=== PATIENT | female | born 1985 | race Caucasian/White ===

== ENCOUNTER 2025-06-14 18:30 | Inpatient (IN) | payer SELFPAY ==
[2025-06-14] VITALS (53 sets, daily range): BP systolic 88–146; BP diastolic 46–108; PULSE 68–112; TEMP 37; O2SAT 96–100; BMI 34.2
--- OUTSIDE RECORDS SUMMARY | 2025-06-14 19:53 | XMS_ITS | Clinical Summary ---
Author Organization [facility] Address [address] [place] [address] Care Team Providers Care Warp Starter Name Role Phone Unknown, Provider Primary Care Provider Unavaila ble Source Comments [facility],non-owned Affiliates and Associated Physician Practices is amultiple site organization consisting of ambulatory clinics and hospital sitesin [place], [place], [place] and [place]. This disclosure is being madepursuant to the Care Everywhere program and may not contain all information available regarding this patient. Last updated 18.[facility] Allergies Active Allergy Reactions Criticality Noted Date Comments Naproxen Nausea and/or Vomiting Low 08/18/2023 Medications * Be aware that medications may not be up to date on this document. Alwaysverify current medications with the patient. Vit-Fe Fumarate-FA ( PO) Active Ferrous Sulfate (IRON PO) Active Active Problems Problem Noted Date Diagnosed Date Advanced maternal age in multigravida, third tri mester 04/23/2025 Abnormal ultrasound of placenta 04/23/2025 Estimated Date of Delivery Comme nts Yes 06/15/2025 Based on Ultraso und Encounters Date Type Department Care Team Description 04/25/2025 9:49 AM CDT - 04/25/2025 11:59 PM CDT Hospital Encounter Pending sale to [facility] [address] [place] [address] Anayeli Dailey MD Discharge Disposition: Home or Self Care 04/25/2025 9:45 AM CDT - 04/25/2025 9:48 AM CDT Hospital Encounter Pending sale to [facility] [address] [place] [address] Anayeli Dailey MD Discharge Disposition: Home or Self Care 04/19/2025 Telephone Pending sale to [facility] [address] [place] [address] Inga Ko Appointment 04/18/2025 Telephone Pending sale to [facility] [address] [place] [address] Inga Ko Appointment from Last 3 Months Social History Tobacco Use Types Packs/Day Years Used Date Smoking Tobacco: Former Cigarettes Smokeless Tobacco: Never Tobacco Cessation:Counseling Given: Not Answered Alcohol Use Standard Drinks/Week Comments Not Currently 0 (1 standard drink = 0.6 oz pur e alcohol) Estimated Date of Delivery Comme nts Yes 06/15/2025 Based on Ultraso und Sex and Gender Information Value Date Recorded Sex Assigned at Not on file Legal Sex Female 2:10 PM CDT Gender Identity Not on file Sexual Orientation Not on file Last Filed Vital Signs Vital Sign Reading Time Taken Comments Blood Pressure 135/62 04/25/2025 11:18 AM CDT Pulse 78 04/25/2025 11:18 AM CDT Temperature - - Respiratory Rate - - Oxygen Saturation - - Inhaled Oxygen Concentration - - Weight 89.4 kg (197 lb) 04/25/2025 11:18 AM CDT Height 165.1 cm (5' 5) 04/25/2025 11:18 AM CDT Body Mass Index 32.78 04/25/2025 11:18 AM CDT Plan of Treatment Health Maintenance Due Date Last Done Comments HEPATITIS C SCREENING 11/24/2004 DTAP/TDAP/TD VACCINES (1 - Tdap) 2005 HEPATITIS B VACCINE (1 of 3 - 19+ 3-dose series) 2005 Cervical Cancer Screening 11/30/2007 PAP SMEAR 11/30/2007 HPV VACCINE (1 - 3-dose SCDM series) 2013 PAP with HPV 2016 DEPRESSION SCREENING 07/20/2024 OB-ONE HOUR GLUCOSE 03/09/2025 OB-TDAP CURRENT 03/16/2025 COVID-19 VACCINE ( - 2024-2 6 season) 2025 INFLUENZA VACCINE (#1) 2025 OB-RHOGAM INJECTION 03/23/2025 OB-GROUP B STREP SCREEN 05/11/2025 ZOSTER VACCINE (1 of 2) 2036 HIV SCREENING Completed 04/14/2025, 02/03/2025 HIB VACCINE Aged Out No longer eligi ble based on patient's age to complete this topic MENINGOCOCCAL (Group B) VACCINE SHARED DECISION-MAKING Aged Out No longer eligible based on patient's age to complete this topic MENINGOCOCCAL GROUPS A/C/Y/W VACCINE Aged Out No longer eligible b ased on patient's age to complete this topic PNEUMOCOCCAL VACCINE Aged Out No long er eligible based on patient's age to complete this topic Respiratory Syncytial Virus (RSV) Vaccine Pt: or over 60 yrs (No Doses Required) Completed Procedures Procedure Name Priority Date/Time Associated Diagnosis Comments SONOGRAM - COMPLETE Routine 04/25/2025 9 :59 AM CDT Low lying placenta, antepartum (HCC) Abnormal ultrasound of placenta 32 weeks gestation of (HCC) Advanced maternal age in multigravida, unspecified trimester (HCC) Advanced maternal age in multigravida, third trimester (HCC) from Last 3 Months Results * Sonogram - Complete (04/25/2025 9:59 AM CDT) Linked Results Indication ======== Advanced maternal age (AMA), multigravida Low lying placenta seen on outside ultrasound along with vascularity involving lower uterine segment History ====== OB History 5. Para 1 Lab Tests Test Date Result NIPT Low risk, Female Maternal Assessment Physical Exam Height 165 cm, 5 ft 5 in. Weight 89 kg, 197 lb. Initial weight 70 kg, 155 lb. BMI 32.78 kg/m . Initial BMI 25.79 kg/m . Weight gain 19 kg, 42 lb Method ====== Transabdominal and transvaginal ultrasound examination. View: Suboptimal view: limited by late gestational age. Suboptimal view: limited by position ========= [place] . Number of fetuses: 1 Dating ====== Date Details Gest. age JENNIFER Stated JENNIFER 32 w + 5 d 06/15/2025 U/S 04/25/2025 based upon AC, BPD, Femur, HC 34 w + 0 d 06/06/2025 Assigned dating based on stated JENNIFER, selected on 04/25/2025 32 w + 5 d 06/15/2025 General Evaluation Cardiac activity present. FHR 128 bpm. movements: visualized. Presentation: cephalic Placenta: Placental site: posterior, low lying. Placental [id number]-[id number] os distance 17 mm Umbilical cord: Cord vessels: 3 vessel cord. Insertion site: normal insertion Amniotic fluid: Amount of AF: normal. MVP 3.4 cm. RAVI 10.7 cm. Q1 2.1 cm, Q2 2.9 cm, Q3 2.4 cm, Q4 3.4 cm Biometry BPD 85.6 mm 34w 4d 89% Hadlock HC 315.7 mm 35w 3d 83% Hadlock Cerebellum tr 43.3 mm 64% [place] AC 303.6 mm 34w 2d 89% Hadlock Femur 61.4 mm 31w 6d 18% Hadlock Humerus 55.5 mm 32w 2d 46% Sami HC / AC 1.04 -/- Hadlock Weight Calculation: EFW 2,271 g 73% Hadlock EFW (lb,oz) 5 lb 0 oz EFW by Hadlock ([id number]) appropriate Growth Overview Exam date GA BPD (mm) HC (mm) AC (mm) FL (mm) HL (mm) EFW (g) 04/25/2025 32w 5d 85.6 89% 315.7 83% 303.6 89% 61.4 18% 55.5 46% 2271 73% Anatomy The following structures appear normal: Head / Neck Cranium. Lateral ventricles. Choroid plexus. Midline falx. Cavum septi pellucidi. Cerebellum. Cisterna magna. Thalami. Nuchal fold. Face Lips. Profile. Nose. Nasal bone. Orbits. Heart / Thorax 4-chamber view. 3-vessel view. 7-bmzdog-oqxjcia view. Situs. Aortic arch view. Ductal arch view. Great vessels. Abdomen Stomach. Kidneys. Bladder. Bowel. Extremities / Skeleton Left upper arm. Left hand. Legs. The following structures could not be adequately visualized: Heart / Thorax RVOT view. LVOT view. Bicaval view. Right lung. Left lung. Diaphragm. Abdomen Cord insertion. Genitals. Spine Cervical spine. Thoracic spine. Lumbar spine. Sacral spine. Extremities / Skeleton Arms. Hands. Right upper arm. Right hand. Feet. Maternal Structures Cervix reassuring Approach - Transvaginal Cervical length with fundal pressure 3.70 cm Funneling absent Right Ovary Normal Left Ovary Normal Impression ========= Single live intrauterine at 32w 5d The size is appropriate. The amniotic fluid volume is normal. The transvaginal cervical length is reassuring. The placenta is posterior and low lying, inferior edge 1.7 cm from the internal os. Vascularity is noted, doppler is suggestive of venous flow of maternal origin. vessels are not seen. No major malformations were seen within the limitations of ultrasound. Comment ======== ultrasound alone cannot detect all structural, genetic, or functional , placental, or maternal abnormalities Follow-up ======== Follow up in 3 weeks, to assess growth and ro reevaluate the placenta. See separate M visit note. Coding ====== Procedures 43583: US Preg Uterus Detailed [id number]: US Preg Uterus Transvaginal . [facility] [employer] PACS Anatomical Region Laterality Modality Other 04/25/2025 9:59 AM CDT R Raj Lyons MD [facility] ORDERABLES Edited Result - Final from Last 3 Months Care Teams Warp Starter Relationship Specialty Start Date End Date Unknown, Provider PCP - General 04/25/25
--- OUTSIDE RECORDS SUMMARY | 2025-06-14 19:53 | XMS_ITS | Continuity of Care Document ---
Author Organization [facility] Address [address] [place] [address] Assessment No assessment recorded. Plan of Treatment Reminders Order Date Submit Date Provider Last Modified By Organization Details Last Modified Time Details Appointments INDUCTION 2024 05:00A Andres RAMÍREZ MD Not available Not available Not available Lab None recorded. Referral None recorded. Procedures None recorded. Surgeries None recorded. Imaging None recorded. Medication Orders None recorded. Patient TargetsNo targets recorded. Patient InstructionsNo instructions recorded. Reason for Referral None Reported. Results Created Date Observation Date Name Description Value Unit Range Abnormal Flag Note LastModifiedBy Organization Detail LastModifiedTime 02/12/2002/11/2025 [UNIT Y] ANEUP LOIDY NIPT fraction 13.7% normal Not Available [facility] [address], [place], [address], 02/11/2025 00:34:26 02/12/20 25 02/11/2025 [UNIT Y] ANEUP LOIDY NIPT 22Q11.2 microdeletio n LOW RISK <1 in 10,000 normal Not Available [facility] [address], [place], [address], 02/11/2025 00:34:26 02/12/20 25 02/11/2025 [UNIT Y] ANEUP LOIDY NIPT sex chromosome aneuploidy NOT DETECT ED normal Not Available [facility] [address], [place], [address], 02/11/2025 00:34:26 02/12/20 25 02/11/2025 [UNIT Y] ANEUP LOIDY NIPT monosomy X LOW RISK <1 in 10,000 normal Not Available [facility] [address], [place], [address], 02/11/2025 00:34:26 02/12/20 25 02/11/2025 [UNIT Y] ANEUP LOIDY NIPT trisomy 13 LOW RISK <1 in 10,000 normal Not Available [facility] [address], [place], [address], 02/11/2025 00:34:26 02/12/20 25 02/11/2025 [UNIT Y] ANEUP LOIDY NIPT trisomy 18 LOW RISK <1 in 10,000 normal Not Available [facility] [address], [place], [address], 02/11/2025 00:34:26 02/12/20 25 02/11/2025 [UNIT Y] ANEUP LOIDY NIPT trisomy 21 LOW RISK <1 in 10,000 normal Not Available [facility] [address], [place], [address], 02/11/2025 00:34:26 02/12/20 25 02/11/2025 [UNIT Y] ANEUP LOIDY NIPT sex FEMALE normal Not Available [facility] [address], [place], [address], 02/11/2025 00:34:26 02/12/20 25 02/11/2025 [UNIT Y] ANEUP LOIDY NIPT gestation SINGLE TON normal Not Available [facility] [address], [place], [address], 02/11/2025 00:34:26 02/12/20 25 02/11/2025 [UNIT Y] ANEUP LOIDY NIPT for detailed report, see pdf See PDF normal Not Available [facility] [address], [place], [address], 02/11/2025 00:34:26 02/19/20 25 02/18/2025 [UNIT Y] KECIA DAYANARA DIAMANTEJaciel Molina sickle cell disease/beta -thalassemia /hemoglobino pathies carrier screen NEGATI VE normal Not Available [facility] [address], [place], [address], 02/18/2025 01:11:43 02/19/20 25 02/18/2025 [UNIT Y] KECIA BOBBYJaciel Molina alpha-thalas semia carrier screen NEGATI VE normal Not Available [facility] [address], [place], [address], 02/18/2025 01:11:43 02/19/20 25 02/18/2025 [UNIT Y] KECIA DAYANARA DIAMANTEJaciel Molina cystic fibrosis carrier screen NEGATI VE normal Not Available [facility] [address], [place], [address], 02/18/2025 01:11:43 02/19/20 25 02/18/2025 [UNIT Y] KECIA DAYANARA DIAMANTEJaciel Molina spinal muscular atrophy carrier screen NEGATI VE 2 SMN1 copies , SNP not presen t normal Not Available [facility] [address], [place], [address], 02/18/2025 01:11:43 02/19/20 25 02/18/2025 [UNIT Y] KECIA DAYANARA Molina for detailed report, see pdf See PDF normal Not Available [facility] [address], [place], [address], 02/18/2025 01:11:43 02/04/2002/03/2025 HIV 1/2 ANTIG EN/AN TIBOD Y, REFLE X CONFI RMATI ON HIV antigen/anti body Nonrea ctive nonrea ctive HIV-1 antig en and HIV-1 /HIV- 2 antib odies were not detec marvin. No labor atory evide nce of HIV infec tion. Not Available [facility] (Lab) [address], [place], [address], 02/04/2025 14:19:01 02/04/2002/03/2025 HEPAT ITIS B SURFA CE ANTIG EN hepatitis B surface antigen Non-re active non-re active This assay was perfo rmed using [employer] ratio n reage nts and test kits. Value s obtai amy with other assay metho ds or kits canno t be used inter cyr eably . Not Available [facility] (Lab) [address], [place], [address], 02/04/2025 14:19:02 02/04/2002/03/2025 HEPAT ITIS C ANTIB MANAN SCREE N, REFLE X TO CONFI RMATI ON hepatitis C antibody Non-re active non-re active Antib odies to HCV Not Detec marvin, does not exclu de the possi bilit y of expos ure to HCV. Not Available [facility] (Lab) [address], [place], [address], 02/04/2025 14:19:02 02/04/2002/03/2025 RUBEL LA IGG ANTIB MANAN, QUANT rubella antibodies, IgG Reacti ve reacti ve Not Available [facility] (Lab) [address], [place], [address], 02/04/2025 14:19:03 02/04/2002/03/2025 RUBEL LA IGG ANTIB MANAN, QUANT rubella antibodies, IgG quant 11.5 IU/mL >=10 Non-r eacti ve (Non- Immun e) <10 IU/mL React chastity (Immu ne) > or = 10 IU/mL Not Available [facility] (Lab) [address], [place], [address], 02/04/2025 14:19:03 02/04/2002/03/2025 HEMOG LOBIN A1C hemoglobin A1C 5.0 % 4.0-5. 6 The Ameri can [employer]abe sharmila [employer] iatio n recom mends that a prima ry goal of thera py izaiah d be a HBA1C of < 7% and that physi cians shoul d reeva luate the treat ment regim en in patie nts with HBA1C value s consi stent ly > 8%. <5.7% Evelyn l 5.7 - 6.4% Incre ased risk for diabe sharmila >=6.5 % Diagn ostic of diabe sharmila <7.0% Goal of thera py >8.0% Actio n sugge sted Not Available [facility] (Lab) [address], [place], [address], 02/04/2025 14:19:03 02/04/2002/03/2025 TYPE/ RH/SC REEN ABO/Rh type A POS Not Available [facility] (Lab) [address], [place], [address], 02/04/2025 14:19:04 02/04/20 25 02/03/2025 TYPE/ RH/SC REEN antibody screen NEG Not Available [facility] (Lab) [address], [place], [address], 02/04/2025 14:19:04 02/04/20 25 02/03/2025 TYPE/ RH/SC REEN exp date 2024 23:59 Not Available [facility] (Lab) [address], [place], [address], 02/04/2025 14:19:04 02/04/20 25 02/03/2025 RPR SCREE N, REFLE X TITER /CONF IRMAT ION RPR qualitative Nonrea ctive nonrea ctive Not Available [facility] (Lab) [address], [place], [address], 02/04/2025 14:19:04 04/14/20 25 04/14/2025 HEMOG LOBIN (HGB) HGB 11.0 g/dL (based on docume nted legal sex) 11.6-1 5.4 low Not Available [facility] (Lab) [address], [place], [address], 04/15/2025 12:46:15 04/14/20 25 04/14/2025 HEMAT OCRIT (HCT) HCT 35.7 % (based on docume nted legal sex) 34.0-4 5.0 Not Available [facility] (Lab) [address], [place], [address], 04/15/2025 12:46:16 04/14/20 25 04/14/2025 GTT - GESTA SHASHANK L SCREE N, ACOG OB glucose, 1 hour screen 99 mg/dL 70-135 Not Available [facility] (Lab) [address], [place], [address], 04/15/2025 12:46:16 04/14/20 25 04/14/2025 HIV 1/2 ANTIG EN/AN TIBOD Y, REFLE X CONFI RMATI ON HIV antigen/anti body Nonrea ctive nonrea ctive HIV-1 antig en and HIV-1 /HIV- 2 antib odies were not detec marvin. No labor atory evide nce of HIV infec tion. Not Available [facility] (Lab) [address], [place], [address], 04/15/2025 12:46:17 04/14/20 25 04/14/2025 RPR SCREE N, REFLE X TITER /CONF IRMAT ION RPR qualitative Nonrea ctive nonrea ctive Not Available [facility] (Lab) [address], [place], [address], 04/15/2025 12:46:17 05/24/20 25 05/24/2025 CULTU RE: GROUP B STREP SCREE N, REFLE X SUSCE PTIBI LITY result report SEE RESULT S BELOW Test: Cultu re: Group B Strep , Refle x Susce ptibi lity ([facility]/ [facility] ) Speci men Sourc e: Vagin a/Rec adolfo Speci men Type: Vagin al/Re ctal Speci men Date: 2024 1559 Resul t Date: 2024 1420 Resul t Statu s: Final resul t Abnor mal: No Resul jarrodg Lab: [facility] [address] [facility] [address] Tel: CULTU RE ----- ----- ----- --- No Group B strep isola marvin at 2 days (devin ctive broth enhan cemen t) Not Available [facility] (Lab) [address], [place], [address], 05/27/2025 15:26:08 02/04/20 25 02/03/2025 US, obste tric, follo w-up No observ ation record ed. [facility] [address] [place], [address], 02/03/2025 17:50:45 02/04/20 25 02/03/2025 US, obste tric, trans vagin al No observ ation record ed. [facility] [address] [place], [address], 02/03/2025 17:50:54 02/04/20 25 02/03/2025 US, obste tric, follo w-up No observ ation record ed. [email or web address] [facility] [address] [place] [address] [address], [place], [address], 02/17/2025 09:47:46 03/01/2003/01/2025 US, obste tric, trans vagin al No observ ation record ed. [facility] [address] [place], [address], 03/01/2025 18:51:07 03/01/20 25 03/01/2025 US, obste tric, follo w-up No observ ation record ed. [facility] [address] [place], [address], 03/01/2025 18:51:17 03/01/2003/01/2025 US, obste tric, trans vagin al No observ ation record ed. [email or web address] [facility] [address], [place], [address], 03/04/2025 11:18:02 04/13/2004/13/2025 US, obste tric, follo w-up No observ ation record ed. [email or web address] [facility] [address], [place], [address], 04/18/2025 10:57:58 04/13/2004/13/2025 US, obste tric, follo w-up No observ ation record ed. [email or web address] [facility] [address] [place], [address], 04/13/2025 14:33:43 04/13/2004/13/2025 US, obste tric, trans vagin al No observ ation record ed. [email or web address] [facility] [address] [place], [address], 04/13/2025 14:33:53 04/25/2004/25/2025 US, obste tric, follo w-up No observ ation record ed. [email or web address] [address], [address], 04/26/2025 12:18:39 04/26/2004/25/2025 US, obste tric, follo w-up No observ ation record ed. [email or web address] [facility] [address], [address], 05/16/2025 16:36:08 05/16/2005/16/2025 US, obste tric, follo w-up No observ ation record ed. GEOFFREY Carson [address], [place], [address], 06/02/2025 12:50:00 05/16/2005/16/2025 US, obste tric, follo w-up No observ ation record ed. [facility] [address], [place], [address], 05/16/2025 18:39:43 05/16/2005/16/2025 US, obste tric, trans vagin al No observ ation record ed. [facility] [address], [place], [address], 05/16/2025 18:39:52 Result Notes None recorded. Problems Name Problem SNOMED Code Status Onset Date Resolution Date Notes Provider Name and Address Organization Details Recorded Time 26783154 Active 2024 ALAN Cai [facility] 14:57:49 Low-lying placenta 862183785 Active 2024 8mm from OS at 21 weeks, repeat in 4 weeks faxed referral [facility] 04/18 Amberly Arteaga [facility] 11:02:39 Problem Notes None recorded. Procedures Surgical History Date Name Laterality Status Provider Name and Address Organization Details Recorded Time 11/19/19 18 tonsillectomy and adenoidectomy completed ALAN Cai [facility] 01/09/2025 12:24:46 tonsilectomy/winston oids completed Rebekah Mancia [facility] 03/01/2025 16:34:53 Imaging Results None recorded. Procedure Notes None recorded. Medical Equipment None Reported. Allergies Allergen ID Allergen Name Allergen Category Reaction Reaction Severity Criticality Documentation Date Start Date Code Code System Note Provider Name and Address Organization Details Recorded Time naproxen medicatio n abdominal pain moderate Not available 01/09/2025 7258 RxNorm [facility] 12:[facility]:23 Medications Name Sig Start Date Stop Date Status Note LastModified by Organization Details LastModified Time misoprostol 200 mcg tablet TAKE 4 TABLETS EVERY DAY BY MOUTH FOR ONE DAY 01/09 completed Not Available Not Available Not Available active Not Available Not Avai lable Not Available Vitals Date Recorded Body height Body mass index (BMI) Body weight Systolic And Diastolic Provider Name and Address Organization Details Last Updated DateTime 05/30/2025 165.1 cm 33.6 kg/m2 83623.66 g 131/79 mm[Hg] Leslie Diallo [facility] 05/30/2025 09:46:07 Social History Question Answer Notes LastModified by Organizat ion Details LastModified Time Do You Have An Advance Directive? No Information n ot available 01/09/2025 Are You Blind Or Do You Have Difficulty Seeing? No Information not available 01/09/2025 What Is Your Level Of Caffeine Consumption? Moderate [email or web address] Information not available 01/09/2025 How Much Tobacco Do You Chew? None [email or web address] Information not available 01/09/2025 In The 14 Days Before Symptom Onset, Have You Had Close Contact With A Laboratory-confirme d COVID-19 While That Case Was Ill? No [email or web address] Information n ot available 01/09/2025 In The 14 Days Before Symptom Onset, Have You Had Close Contact With A Person Who Is Under Investigation For COVID-19 While That Person Was Ill? No [email or web address] Information not available 01/09/2025 Have You Been To An Area Known To Be High Risk For COVID-19? No [email or web address] Information not available 01/09/2025 Are You Deaf Or Do You Have Serious Difficulty Hearing? No [email or web address] Information not available 01/09/2025 What Type Of Diet Are You Following? REGULAR [email or web address] Information n ot available 01/09/2025 What Is The Highest Grade Or Level Of School You Have Completed Or The Highest Degree You Have Received? GV99952-1 [email or web address] Information not available 01/09/2025 Are There Any Guns Present In Your Home? No [email or web address] Information not available 01/09/2025 Do You Use Protection During Sex? No [email or web address] Information not available 01/09/2025 Do You Use Your Seat Belt Or Car Seat Routinely? Yes [email or web address] Information not available 01/09/2025 Are You Sexually Active? Yes [email or web address] Information not available 03/01/2025 Do You Have Smoke And Carbon Monoxide Detectors In Your Home? Yes [email or web address] Information not available 01/09/2025 How Much Tobacco Do You Smoke? No Information not available 01/09/2025 Do You Use Sunscreen Routinely? No [email or web address] Information not available 01/09/2025 Have You Used IV Drugs? No [email or web address] Information not available 01/09/2025 Sex: Unknown Functional Status Question Answer Note LastModified by Organizat ion Details LastModified Time Do you use any illicit or recreational drugs? No [email or web address] Information not available 01/09/2025 What is your level of alcohol consumption? None [email or web address] Information not available 01/09/2025 Are you currently employed? Yes [email or web address] Information not available 03/01/2025 Are you able to walk independently without assistance or assistive devices? 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 Occasional [email or web address] Information not available 01/09/2025 Mental Status Question Answer Note LastModified by Organization D etails LastModified Time Do you feel stressed (tense, restless, nervous, or anxious, or unable to sleep at night)? [id number] Information not available 01/09/2025 Family History Relationship Description Onset Age of this Age Resolved Age Notes LastModified by Organization Details LastModified Time Maternal Grandfather Heart disease [email or web address] Not available 2024 12:25:30 Medical History Condition Response Allergies (Food, seasonal, environmental ) N Other N Drug/Latex Allergies/Reactions N Blood Transfusion N Breast Cancer N Dermatologic Disorders N Lung Disease N Defects or Inherited Disease N Breast Problem N Gestational Diabetes N Hematologic disorders N Anesthesia Complications N History of STI N Deep Vein Thrombosis N Polycystic ovary syndrome N Anxiety Disorder N Autoimmune disease N Arthritis N Polyps N Infertility N Acid Reflux (GERD) N History of abnormal pap N Cancer N Varicosities N Stroke N Neurologic/Epilepsy N Endometriosis N High Cholesterol N Fibromyalgia N Headaches N Kidney Disease N Heart Problems N Thyroid Problems N Kidney or Bladder Problems N GI Problems N Eating Disorder N Anemia N Art (IVF or FET) N Psychiatric Illness N Ovarian Cancer N Diabetes N Pulmonary (TB, Asthma) N Hepatitis/Liver Disease N No Past Medical History N Eczema N Urinary Tract Infection N Abuse/Domestic Violence N Asthma N Trauma/Violence N Depression/ depression N Heart Disease N Pre-Eclampsia N Hypertension N Osteoporosis N Thrombophilias N Gynecological History Statement/Question Response Flow Moderate Date of LMP 08/29/2024 On BCP's at Conception? N N Was last menstrual period normal Y STIs/STDs N HPV Vaccine N Duration of Flow (days) 8 Current Control Method Age at First Child 25 Date of Last Colonoscopy Frequency of Cycle (Q days) 24 Sexually Active? Y N/A Date of DEXA bone scan Age of first menstrual cycle 14 Date of Last Pap Smear Sexual Problems? N LMP Approximate N Obstetrics History GPAL:G 5 P 1 0 3 1 Type Value Full Term 1 Induced 1 Spontaneous 2 Living 1 Total 5 Past Encounters Encounter ID Performer Location Encounter Start Date Encounter Closed Date Diagnosis/Indication Diagnosis SNOMED-CT Code Diagnosis ICD10 Code Diagnosis IMO Codes Diagnosis Note [id number] DUARTE RAMÍREZ MD [facility] [address] [address] 05/10/2025 10:07:47 05/10/2025 12:24:38 Low-lying placenta 388148143 O44.40 83247159 - placental mass 1.7cm from os, with maternal vessel at edge of placenta- MFM follow up in 3 weeks; will reschedule to office due to cost- pelvic rest Gestation period, 34 weeks 61940241 Z3A.34 [id number] DUARTE RAMÍREZ MD [facility] [address] [address] 05/16/2025 16:56:29 05/17/2025 08:24:49 Low-lying placenta 027027027 O44.40 O09.523 Z3A.35 119667 - placental mass 1.7cm from os, with maternal vessel at edge of placenta- [facility] follow up in 3 weeks; will reschedule to office due to cost- pelvic rest [id number] DUARTE RAMÍREZ MD [facility] [address],[place] [address] 05/16/2025 16:57:18 05/17/2025 22:17:31 care status 138725614 Z34.83 [id number] DUARTE RAMÍREZ MD [facility] [address],[place] [address] 05/24/2025 15:57:07 05/24/2025 16:25:52 care status 033793776 Z34.83 [id number] DUARTE RAMÍREZ MD [facility] [address],[place] [address] 05/30/2025 09:37:18 05/30/2025 10:21:45 care status 108834801 Z34.83 [id number] Health Concerns Section Related Observation LastModified by Organization Detai ls LastModified Time None Recorded Concern Status LastModified by Organization Details LastModified Time None Recorded Payers Encounter Date Sequence Insurance Name Policy Number Policy Torres Covered Member ID Torres Member ID Guarantor Name 05/30/2025 1 *SELF PAY* Juma Jackson Notes Date Note Type Note Provider Name and Address Organization Details Recorded Time 05/30/2025 text/html Generic HPI TemplateReported by Patient DUARTE RAMÍREZ MD [address] [place], [address], [facility] 05/30/2025 10:21:11 OBGyn Episode Ob Episode Information Episode Created Date Number of Fetuses Patient Bloodtype Patient rh Status Prepregnancy Weight lbs Domestic Partner Domestic Partner Phone Father Name Health Safety And Environment Manager Status 01/18/20 25 1 A Positive OPEN Fetus Data First Name Last Name Admitted to NICU Weight (g) Sex Living Outcome Pediatric Complications Fetus ID Race Codes Race Delivery Type [id number] Problems Problem Notes Problem Name Start Date End Date Resolution Snomed Code Not e Low-lying placenta 02/03/2025 [id number] 8mm from OS at 21 weeks, repeat in 4 weeks faxed referral [facility] 04/18 Suhas Calculation Initial Suhas Date Initial Exam Date Initial Exam Provider Initial Ultrasound Date Last Menstrual Period Date Ultra Sound Weeks Gestation 06/15/2025 01/17/2025 01/12/2025 18 Eighteen To Twenty Week Suhas Update Ultra Sound Date Fundal Height At Umbil Quickening Date Ultra Sound Latest Weeks Gestation Final Suhas Confirmed By Final Suhas Confirmed Date Final Suhas Date Ultra Sound Latest Days Gestation 0 0 Pre- Flowsheet Flowsheet Date 02/03/2025 Jay Score Blood Edema Fundus Height Fundus Units Glucose Ketones Leukocytes Nitrite Labor Signs Protein Cervic Dilation Cervic Effacement Cervic Station Type Weight in lbs Pre/Post Dialysis Refused BP Diastolic BP Location Tested BP Systolic BP Type Fetus Heart Rate Present Fetus Movement Comments Flowsheet Date 02/03/2025 Jay Score Blood Edema Fundus Height Fundus Units Glucose Ketones Leukocytes Nitrite Labor Signs Protein Cervic Dilation Cervic Effacement Cervic Station Type Weight in lbs Pre/Post Dialysis Refused 174.80898453179 BP Diastolic BP Location Tested BP Systolic BP Type 85 L arm 134 sitting Fetus Heart Rate Present A 157 Fetus Movement A Yes Comments Good movement. No cram ping or bleeding. EFW 32%, anatomy now complete and normal. Low lying placenta, 8mm from cervical os. Continue pelvic rest precautions. Repeat US in 4 weeks, will do GCT at that time as well. RTC 4 weeks. Flowsheet Date 03/01/2025 Jay Score Blood Edema Fundus Height Fundus Units Glucose Ketones Leukocytes Nitrite Labor Signs Protein Cervic Dilation Cervic Effacement Cervic Station Type Weight in lbs Pre/Post Dialysis Refused BP Diastolic BP Location Tested BP Systolic BP Type Fetus Heart Rate Present Fetus Movement Comments Flowsheet Date 03/01/2025 Jay Score Blood Edema Fundus Height Fundus Units Glucose Ketones Leukocytes Nitrite Labor Signs Protein Cervic Dilation Cervic Effacement Cervic Station Type Weight in lbs Pre/Post Dialysis Refused 184.658057801429 BP Diastolic BP Location Tested BP Systolic BP Type 77 L arm 126 sitting Fetus Heart Rate Present Fetus Movement A Yes Comments Doing well, no issues. Good movement. EFW 55%, variable position. Low lying placenta still present, continue pelvic rest. repeat US in 4 weeks. GCT and labs with next visit. RTC 4 weeks. Flowsheet Date 04/13/2025 Jay Score Blood Edema Fundus Height Fundus Units Glucose Ketones Leukocytes Nitrite Labor Signs Protein Cervic Dilation Cervic Effacement Cervic Station Type Weight in lbs Pre/Post Dialysis Refused BP Diastolic BP Location Tested BP Systolic BP Type Fetus Heart Rate Present Fetus Movement Comments Flowsheet Date 04/14/2025 Jay Score Blood Edema Fundus Height Fundus Units Glucose Ketones Leukocytes Nitrite Labor Signs Protein Cervic Dilation Cervic Effacement Cervic Station Type Weight in lbs Pre/Post Dialysis Refused 194.251799762960 BP Diastolic BP Location Tested BP Systolic BP Type 75 L arm 129 sitting Fetus Heart Rate Present Fetus Movement A Yes Comments Good movement. Having some increased back pain, mostly with laying down. EFW 67%, placental mass now 1.9cm away from os, however there is a low flow vascularity seen between the placenta and the cervix. Will send to [facility] for further evaluation. Continue pelvic rest. GCT and labs today. RTC 2 weeks. Flowsheet Date 04/27/2025 Jay Score Blood Edema Fundus Height Fundus Units Glucose Ketones Leukocytes Nitrite Labor Signs Protein Cervic Dilation Cervic Effacement Cervic Station Type Weight in lbs Pre/Post Dialysis Refused Weight 199.254667027256 BP Diastolic BP Location Tested BP Systolic BP Type 72 L arm 118 sitting Fetus Heart Rate Present A 145 Fetus Movement A Yes Comments Flowsheet Date 05/10/2025 Jay Score Blood Edema Fundus Height Fundus Units Glucose Ketones Leukocytes Nitrite Labor Signs Protein Cervic Dilation Cervic Effacement Cervic Station Type Weight in lbs Pre/Post Dialysis Refused 200.546200128798 BP Diastolic BP Location Tested BP Systolic BP Type 76 L arm 132 sitting Fetus Heart Rate Present A 140 Fetus Movement A Yes Comments Doing well, good movem ent. Repeat US in office next week for LLP evaluation. Denies cramping or bleeding. Discussed GBS for next visit. RTC 1-2 weeks. Flowsheet Date 05/16/2025 Jay Score Blood Edema Fundus Height Fundus Units Glucose Ketones Leukocytes Nitrite Labor Signs Protein Cervic Dilation Cervic Effacement Cervic Station Type Weight in lbs Pre/Post Dialysis Refused BP Diastolic BP Location Tested BP Systolic BP Type Fetus Heart Rate Present Fetus Movement Comments Flowsheet Date 05/16/2025 Jay Score Blood Edema Fundus Height Fundus Units Glucose Ketones Leukocytes Nitrite Labor Signs Protein Cervic Dilation Cervic Effacement Cervic Station Type Weight in lbs Pre/Post Dialysis Refused 198.585411669552 BP Diastolic BP Location Tested BP Systolic BP Type 83 L arm 127 sitting Fetus Heart Rate Present A Present Fetus Movement A Yes Comments LLP resolved, 1.9-3cm. Discu ssed r/b of vaginal delivery with patient, ok to try for vaginal delivery. Good movement. No cramping or bleeding. GBS next visit. RTC 1 week. Flowsheet Date 05/24/2025 Jay Score Blood Edema Fundus Height Fundus Units Glucose Ketones Leukocytes Nitrite Labor Signs Protein Cervic Dilation Cervic Effacement Cervic Station Type Weight in lbs Pre/Post Dialysis Refused Weight 202.641874826446 BP Diastolic BP Location Tested BP Systolic BP Type 70 L arm 110 sitting Fetus Heart Rate Present A 130 Fetus Movement A Yes Comments Good movement. Increas ed pelvic pressure and discomfort. No bleeding. Would EIL on 06/16. GBS collected today. RTC 1 week. Flowsheet Date 05/30/2025 Jay Score Blood Edema Fundus Height Fundus Units Glucose Ketones Leukocytes Nitrite Labor Signs Protein Cervic Dilation Cervic Effacement Cervic Station Type Weight in lbs Pre/Post Dialysis Refused Weight 202.842877461675 BP Diastolic BP Location Tested BP Systolic BP Type 79 L arm 131 sitting Fetus Heart Rate Present Fetus Movement A Yes Comments Doing well, baby active. No bleeding, still having pelvic pressure. GBS negative. EIL scheduled. RTC 1 week. Flowsheet Date 06/06/2025 Jay Score Blood Edema Fundus Height Fundus Units Glucose Ketones Leukocytes Nitrite Labor Signs Protein Cervic Dilation Cervic Effacement Cervic Station Type Weight in lbs Pre/Post Dialysis Refused Weight 205.744954029146 BP Diastolic BP Location Tested BP Systolic BP Type 84 L arm 133 sitting Fetus Heart Rate Present A 140 Fetus Movement A Yes Comments Good movement. No cram ping or bleeding. Pelvic pressure. Overall doing well. RTC 1 week. Flowsheet Date 06/13/2025 Jay Score Blood Edema Fundus Height Fundus Units Glucose Ketones Leukocytes Nitrite Labor Signs Protein Cervic Dilation Cervic Effacement Cervic Station Type Weight in lbs Pre/Post Dialysis Refused Weight 204.918056698944 BP Diastolic BP Location Tested BP Systolic BP Type 87 L arm 147 sitting 82 R arm 126 sitting Fetus Heart Rate Present A 140 Fetus Movement A Yes Comments Doing well, some increased p elvic pain. No cramping or bleeding. Baby active. EIL Thursday. Labor precautions reviewed. Menstrual History Last Menstrual Date Menses Monthly On Bcp Conception Prior Menses Frequency Hcg Plus Date Menarche Onset Age Delivery Information Delivery Date Delivery Type Labor Anesthesia Weeks Gestation Incision Type Labor Labor Length Hrs Delivered By Post Complications Tubal Sterilization Discharge Date Comments Discharge Information Feeding Method Contraceptive Method Maternal HG B and HCT Levels
--- OUTSIDE RECORDS SUMMARY | 2025-06-14 19:53 | XMS_ITS | Continuity of Care Document ---
Author Organization [facility] Address [address] [place] [address] [place] [address] Assessment No assessment recorded. Plan of Treatment Reminders Order Date Submit Date Provider Last Modified By Organization Details Last Modified Time Details Appointments INDUCTION 2024 05:00A Andres RAMÍREZ MD Not available Not available Not available Lab None recorded. Referral None recorded. Procedures None recorded. Surgeries None recorded. Imaging US, obstetric , follow-up 2024 025 [email or web address] [place], [address], [place], [address], 04/14/2025 09:55:40 US, obstetric , transvagi nal 2024 025 [email or web address] [place] [facility] [place][note 2] [address], [place], [address], 04/14/2025 09:55:40 Medication Orders None recorded. Patient TargetsNo targets recorded. Patient InstructionsNo instructions recorded. Reason for Referral None Reported. Results Created Date Observation Date Name Description Value Unit Range Abnormal Flag Note LastModifiedBy Organization Detail LastModifiedTime 02/12/2002/11/2025 [UNIT Y] ANEUP LOIDY NIPT fraction 13.7% normal Not Available [facility] [address], [place], [address], 02/11/2025 00:34:26 02/12/2002/11/2025 [UNIT Y] ANEUP LOIDY NIPT 22Q11.2 microdeletio n LOW RISK <1 in 10,000 normal Not Available [facility] [address], [place], [address], 02/11/2025 00:34:26 02/12/20 25 02/11/2025 [UNIT Y] ANEUP LOIDY NIPT sex chromosome aneuploidy NOT DETECT ED normal Not Available [facility] [address], [place], [address], 02/11/2025 00:34:26 02/12/20 25 02/11/2025 [UNIT Y] ANEUP LOIDY NIPT monosomy X LOW RISK <1 in 10,000 normal Not Available [facility] [address], [place], [address], 02/11/2025 00:34:26 02/12/20 25 02/11/2025 [UNIT Y] ANEUP LOIDY NIPT trisomy 13 LOW RISK <1 in 10,000 normal Not Available [facility] [address], [place], [address], 02/11/2025 00:34:26 02/12/20 25 02/11/2025 [UNIT Y] ANEUP LOIDY NIPT trisomy 18 LOW RISK <1 in 10,000 normal Not Available [facility] [address], [place], [address], 02/11/2025 00:34:26 02/12/20 25 02/11/2025 [UNIT Y] ANEUP LOIDY NIPT trisomy 21 LOW RISK <1 in 10,000 normal Not Available [facility] [address], [place], [address], 02/11/2025 00:34:26 02/12/20 25 02/11/2025 [UNIT Y] ANEUP LOIDY NIPT sex FEMALE normal Not Available [facility] [address], [place], [address], 02/11/2025 00:34:26 02/12/20 25 02/11/2025 [UNIT Y] ANEUP LOIDY NIPT gestation SINGLE TON normal Not Available [facility] [address], [place], [address], 02/11/2025 00:34:26 02/12/20 25 02/11/2025 [UNIT Y] ANEUP LOIDY NIPT for detailed report, see pdf See PDF normal Not Available [facility] [address], [place], [address], 02/11/2025 00:34:26 02/19/20 25 02/18/2025 [UNIT Y] KECIA Molina sickle cell disease/beta -thalassemia /hemoglobino pathies carrier screen NEGATI VE normal Not Available [facility] [address], [place], [address], 02/18/2025 01:11:43 02/19/20 25 02/18/2025 [UNIT Y] KECIA Molina alpha-thalas semia carrier screen NEGATI VE normal Not Available [facility] [address], [place], [address], 02/18/2025 01:11:43 02/19/20 25 02/18/2025 [UNIT Y] KECIA Molina cystic fibrosis carrier screen NEGATI VE normal Not Available [facility] [address], [place], [address], 02/18/2025 01:11:43 02/19/20 25 02/18/2025 [UNIT Y] KECIA Molina spinal muscular atrophy carrier screen NEGATI VE 2 SMN1 copies , SNP not presen t normal Not Available [facility] [address], [place], [address], 02/18/2025 01:11:43 02/19/20 25 02/18/2025 [UNIT Y] KECIA Molina for detailed report, see pdf See PDF normal Not Available [facility] [address], [place], [address], 02/18/2025 01:11:43 02/04/2002/03/2025 HIV 1/2 ANTIG EN/AN TIBOD Y, REFLE X CONFI RMATI ON HIV antigen/anti body Nonrea ctive nonrea ctive HIV-1 antig en and HIV-1 /HIV- 2 antib odies were not detec marvin. No labor atory evide nce of HIV infec tion. Not Available [facility] (Lab) [address], [place], [address], 02/04/2025 14:19:01 02/04/2002/03/2025 HEPAT ITIS B SURFA CE ANTIG EN hepatitis B surface antigen Non-re active non-re active This assay was perfo rmed using [employer] ratio n reage nts and test kits. Value s obtai amy with other assay metho ds or kits canno t be used inter cyr eably . Not Available [facility] (Lab) [address], [place], [address], 02/04/2025 14:19:02 02/04/2002/03/2025 HEPAT ITIS C ANTIB MANAN SCREE N, REFLE X TO CONFI RMATI ON hepatitis C antibody Non-re active non-re active Antib odies to HCV Not Detec marvin, does not exclu de the possi bilit y of expos ure to HCV. Not Available [facility] (Lab) [address], [place], [address], 02/04/2025 14:19:02 02/04/2002/03/2025 RUBEL LA IGG ANTIB MANAN, QUANT rubella antibodies, IgG Reacti ve reacti ve Not Available [facility] (Lab) [address], [place], [address], 02/04/2025 14:19:03 07/18/20 25 02/03/2025 RUBEL LA IGG ANTIB MANAN, QUANT rubella antibodies, IgG quant 11.5 IU/mL >=10 Non-r eacti ve (Non- Immun e) <10 IU/mL React chastity (Immu ne) > or = 10 IU/mL Not Available [facility] (Lab) [address] , [place], [address], 02/04/2025 14:19:03 02/04/2002/03/2025 HEMOG LOBIN A1C hemoglobin A1C 5.0 % 4.0-5. 6 The Ameri can Diabe sharmila Assoc iatio n recom mends that a prima ry goal of thera py shoul d be a HBA1C of < 7% and that physi cians shoul d reeva luate the treat ment regim en in patie nts with HBA1C value s consi stent ly > 8%. <5.7% Evelyn l 5.7 - 6.4% Incre ased risk for diabe sharmila >=6.5 % Diagn ostic of diabe sharmila <7.0% Goal of thera py >8.0% Actio n sugge sted Not Available [facility] (Lab) [address], [place], [address], 02/04/2025 14:19:03 02/04/2002/03/2025 TYPE/ RH/SC REEN ABO/Rh type A POS Not Available [facility] (Lab) [address], [place], [address], 02/04/2025 14:19:04 02/04/2002/03/2025 TYPE/ RH/SC REEN antibody screen NEG Not Available [facility] (Lab) [address] , [place], [address], 02/04/2025 14:19:04 02/04/2002/03/2025 TYPE/ RH/SC REEN exp date 2024 23:59 Not Available [facility] (Lab) [address], [place], [address], 02/04/2025 14:19:04 02/04/20 25 02/03/2025 RPR SCREE N, REFLE X TITER /CONF IRMAT ION RPR qualitative Nonrea ctive nonrea ctive Not Available [facility] (Lab) [address] [place] [address], [place], [address], 02/04/2025 14:19:04 02/04/20 25 02/03/2025 US, obste tric, follo w-up No observ ation record ed. [facility] [address], [place], [address], 02/03/2025 17:50:45 02/04/20 25 02/03/2025 US, obste tric, trans vagin al No observ ation record ed. [facility] [address], [place], [address], 02/03/2025 17:50:54 02/04/20 25 02/03/2025 US, obste tric, follo w-up No observ ation record ed. [email or web address] [facility] [address], [place], [address], 02/17/2025 09:47:46 03/01/20 25 03/01/2025 US, obste tric, trans vagin al No observ ation record ed. [facility] [address], [place], [address], 03/01/2025 18:51:07 03/01/20 25 03/01/2025 US, obste tric, follo w-up No observ ation record ed. [facility] [address], [place], [address], 03/01/2025 18:51:17 03/01/20 25 03/01/2025 US, obste tric, trans vagin al No observ ation record ed. [email or web address] [address], [place], [address], 03/04/2025 11:18:02 04/13/2004/13/2025 US, obste tric, follo w-up No observ ation record ed. [facility] [address], [place], [address], 04/18/2025 10:57:58 04/13/2004/13/2025 US, obste tric, follo w-up No observ ation record ed. [email or web address] [place] [address], [place], [address], 04/13/2025 14:33:43 04/13/2004/13/2025 US, obste tric, trans vagin al No observ ation record ed. [email or web address] [place] [address], [place], [address], 04/13/2025 14:33:53 04/25/2004/25/2025 US, obste tric, follo w-up No observ ation record ed. [address], [address], 04/26/2025 12:18:39 04/26/2004/25/2025 US, obste tric, follo w-up No observ ation record ed. [email or web address], [address], 05/16/2025 16:36:08 05/16/2005/16/2025 US, obste tric, follo w-up No observ ation record ed. GEOFFREY [address], [place], [address], 06/02/2025 12:50:00 05/16/2005/16/2025 US, obste tric, follo w-up No observ ation record ed. [facility] [address], [place], [address], 05/16/2025 18:39:43 05/16/20 25 05/16/2025 US, obste tric, trans vagin al No observ ation record ed. [facility] [address], [place], [address], 05/16/2025 18:39:52 Result Notes None recorded. Problems Name Problem SNOMED Code Status Onset Date Resolution Date Notes Provider Name and Address Organization Details Recorded Time 56067074 Active 2024 ALAN Ayaal [facility] 14:57:49 Low-lying placenta 730619804 Active 2024 8mm from OS at 21 weeks, repeat in 4 weeks faxed referral [facility] TACHO Daugherty 04/18 Amberly Arteaga [facility] 11:02:39 Problem Notes None recorded. Procedures Surgical History Date Name Laterality Status Provider Name and Address Organization Details Recorded Time 11/19/19 tonsillectomy and adenoidectomy completed ALANBret Cai [facility] 01/09/2025 12:24:46 tonsilectomy/winston oids completed Rebekah Mancia [facility] 03/01/2025 16:34:53 Imaging Results None recorded. Procedure Notes None recorded. Medical Equipment None Reported. Allergies Allergen ID Allergen Name Allergen Category Reaction Reaction Severity Criticality Documentation Date Start Date Code Code System Note Provider Name and Address Organization Details Recorded Time 61719 naproxen medicatio n abdominal pain moderate Not available 01/09/2025 7258 RxNorm ALAN Ayala [facility] 12:21:23 Medications Name Sig Start Date Stop Date Status Note LastModified by Organization Details LastModified Time misoprostol 200 mcg tablet TAKE 4 TABLETS EVERY DAY BY MOUTH FOR ONE DAY 01/09 completed Not Available Not Available Not Available active Not Available Not Avai lable Not Available Vitals None Recorded Social History Question Answer Notes LastModified by Organizat ion Details LastModified Time Do You Have An Advance Directive? No [email or web address] Information n ot available 01/09/2025 Are You Blind Or Do You Have Difficulty Seeing? No [email or web address] Information not available 01/09/2025 What Is Your Level Of Caffeine Consumption? Moderate [email or web address] Information not available 01/09/2025 How Much Tobacco Do You Chew? None [email or web address] Information not available 01/09/2025 In The 14 Days Before Symptom Onset, Have You Had Close Contact With A Laboratory-confirme d COVID-19 While That Case Was Ill? No [email or web address] Information n ot available 01/09/2025 In The 14 Days Before Symptom Onset, Have You Had Close Contact With A Person Who Is Under Investigation For COVID-19 While That Person Was Ill? No [email or web address] Information not available 01/09/2025 Have You Been To An Area Known To Be High Risk For COVID-19? No Information not available 01/09/2025 Are You Deaf Or Do You Have Serious Difficulty Hearing? No [email or web address] Information not available 01/09/2025 What Type Of Diet Are You Following? REGULAR [email or web address] Information n ot available 01/09/2025 What Is The Highest Grade Or Level Of School You Have Completed Or The Highest Degree You Have Received? [id number] [email or web address] Information not available 01/09/2025 Are There Any Guns Present In Your Home? No [email or web address] Information not available 01/09/2025 Do You Use Protection During Sex? No [email or web address] Information not available 01/09/2025 Do You Use Your Seat Belt Or Car Seat Routinely? Yes [email or web address] Information not available 01/09/2025 Are You Sexually Active? Yes [email or web address] Information not available 03/01/2025 Do You Have Smoke And Carbon Monoxide Detectors In Your Home? Yes [email or web address] Information not available 01/09/2025 How Much Tobacco Do You Smoke? No Information not available 01/09/2025 Do You Use Sunscreen Routinely? No [email or web address] Information not available 01/09/2025 Have You Used IV Drugs? No [email or web address] Information not available 01/09/2025 Sex: Unknown Functional Status Question Answer Note LastModified by Organizat ion Details LastModified Time Do you use any illicit or recreational drugs? No [email or web address] Information not available 01/09/2025 What is your level of alcohol consumption? None [email or web address] Information not available 01/09/2025 Are you currently employed? Yes Information not available 03/01/2025 Are you able to walk independently without assistance or assistive devices? 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 Occasional Information not available 01/09/2025 Mental Status Question Answer Note LastModified by Organization D etails LastModified Time Do you feel stressed (tense, restless, nervous, or anxious, or unable to sleep at night)? [id number] [email or web address] Information not available 01/09/2025 Family History Relationship Description Onset Age of this Age Resolved Age Notes LastModified by Organization Details LastModified Time Maternal Grandfather Heart disease Not available 2024 12:25:30 Medical History Condition [...] ICD10 Code Diagnosis IMO Codes Diagnosis Note [id number] DUARTE RAMÍREZ MD [place] [address] [address] 04/13/2025 12:22:16 04/13/2025 13:36:03 Low-lying placenta 908674795 O44.40 Z3A.31 [id number] - repeat US in 4 weeks- pelvic rest Health Concerns Section Related Observation LastModified by Organization Detai ls LastModified Time None Recorded Concern Status LastModified by Organization Details LastModified Time None Recorded Payers Encounter Date Sequence Insurance Name Policy Number Policy Torres Covered Member ID Torres Member ID Guarantor Name 04/13/2025 1 *SELF PAY* Juma Jackson OBGyn Episode Ob Episode Information Episode Created Date Number of Fetuses Patient Bloodtype Patient rh Status Prepregnancy Weight lbs Domestic Partner Domestic Partner Phone Father Name Air Traffic Control Operator Status 01/18/20 25 1 A Positive OPEN Fetus Data First Name Last Name Admitted to NICU Weight (g) Sex Living Outcome Pediatric Complications Fetus ID Race Codes Race Delivery Type [id number] Problems Problem Notes Problem Name Start Date End Date Resolution Snomed Code Not e Low-lying placenta 02/03/2025 488758832 8mm from OS at 21 weeks, repeat [...] Ultra Sound Latest Days Gestation 0 0 Pre-forest Flowsheet Flowsheet Date 02/03/2025 Jay Score Blood [...] Type Weight in lbs Pre/Post Dialysis Refused 174.46421510508 BP Diastolic BP Location Tested BP Systolic [...] Type Weight in lbs Pre/Post Dialysis Refused 184.247444726462 BP Diastolic BP Location Tested BP Systolic [...] Type Weight in lbs Pre/Post Dialysis Refused 194.932526244825 BP Diastolic BP Location Tested BP Systolic BP Type 75 L arm 129 sitting Fetus Heart Rate Present Fetus Movement A Yes Comments Good movement. Having some increased back pain, mostly with laying down. EFW 67%, placental mass now 1.9cm away from os, however there is a low flow vascularity seen between the placenta and the cervix. Will send to [facility] for further evaluation. Continue pelvic rest. GCT and labs today. RTC 2 weeks. Flowsheet Date 04/27/2025 Jay Score Blood Edema Fundus Height Fundus Units Glucose Ketones Leukocytes Nitrite Labor Signs Protein Cervic Dilation Cervic Effacement Cervic Station Type Weight in lbs Pre/Post Dialysis Refused Weight 199.805908592919 BP Diastolic BP Location Tested BP Systolic BP Type 72 L arm 118 sitting Fetus Heart Rate Present A 145 Fetus Movement A Yes Comments Flowsheet Date 05/10/2025 Jay Score Blood Edema Fundus Height Fundus Units Glucose Ketones Leukocytes Nitrite Labor Signs Protein Cervic Dilation Cervic Effacement Cervic Station Type Weight in lbs Pre/Post Dialysis Refused 200.390839145859 BP Diastolic BP Location Tested BP Systolic [...] Type Weight in lbs Pre/Post Dialysis Refused 198.049113739812 BP Diastolic BP Location Tested BP Systolic [...] Weight in lbs Pre/Post Dialysis Refused Weight 202.027628677536 BP Diastolic BP Location Tested BP Systolic [...] Weight in lbs Pre/Post Dialysis Refused Weight 202.760101504594 BP Diastolic BP Location Tested BP Systolic [...] Weight in lbs Pre/Post Dialysis Refused Weight 205.534735879354 BP Diastolic BP Location Tested BP Systolic [...] Weight in lbs Pre/Post Dialysis Refused Weight 204.199922720951 BP Diastolic BP Location Tested BP Systolic [...]
--- OUTSIDE RECORDS SUMMARY | 2025-06-14 19:53 | XMS_ITS | Continuity of Care Document ---
Author Organization [facility] Address [address] [place] [address] Assessment No assessment recorded. Plan of Treatment [...] Not Available [facility] [address], [place], [address], 02/11/2025 00:34:26 02/12/20 25 02/11/2025 [UNIT Y] ANEUP LOIDY NIPT 22Q11.2 microdeletio n LOW RISK <1 in 10,000 normal Not Available [facility] [address], [place], [address], 02/11/2025 00:34:26 02/12/20 25 02/11/2025 [UNIT Y] ANEUP LOIDY NIPT sex chromosome aneuploidy NOT DETECT ED normal Not Available [facility] [address], [place], [address], 02/11/2025 00:34:26 02/12/20 25 02/11/2025 [UNIT Y] ANEUP LOIDY NIPT monosomy X LOW RISK <1 in 10,000 normal Not Available [facility] [address], [place], [address], 02/11/2025 00:34:26 02/12/20 25 02/11/2025 [UNIT Y] ANEUP LOIDY NIPT trisomy 13 LOW RISK <1 in 10,000 normal Not Available [facility] [address], [place], [address], 02/11/2025 00:34:26 02/12/20 25 02/11/2025 [UNIT Y] ANEUP LOIDY NIPT trisomy 18 LOW RISK <1 in 10,000 normal Not Available [facility] [address], [place], [address], 02/11/2025 00:34:26 02/12/20 25 02/11/2025 [UNIT Y] ANEUP LOIDY NIPT trisomy 21 LOW RISK <1 in 10,000 normal Not Available [facility] [address], [place], [address], 02/11/2025 00:34:26 02/12/20 25 02/11/2025 [UNIT Y] ANEUP LOIDY NIPT sex FEMALE normal Not Available [facility] [address], [place], [address], 02/11/2025 00:34:26 02/12/20 25 02/11/2025 [UNIT Y] ANEUP LOIDY NIPT gestation SINGLE TON normal Not Available [facility] [address], [place], [address], 02/11/2025 00:34:26 02/12/20 25 02/11/2025 [UNIT Y] ANEUP LOIDY NIPT for detailed report, see pdf See PDF normal Not Available [facility] [address], [place], [address], 02/11/2025 00:34:26 02/19/20 25 02/18/2025 [UNIT Y] KECIA DAYANARA DIAMANTEJaciel Molina sickle cell disease/beta -thalassemia /hemoglobino pathies carrier screen NEGATI VE normal Not Available [facility] [address], [place], [address], 02/18/2025 01:11:43 02/19/20 25 02/18/2025 [UNIT Y] KECIA BOBBYJaciel Molina alpha-thalas semia carrier screen NEGATI VE normal Not Available [facility] [address], [place], [address], 02/18/2025 01:11:43 02/19/20 25 02/18/2025 [UNIT Y] KECIA DAYANARA DIAMANTEJaciel Molina cystic fibrosis carrier screen NEGATI VE normal Not Available [facility] [address], [place], [address], 02/18/2025 01:11:43 02/19/20 25 02/18/2025 [UNIT Y] KECIA DAYANARA DIAMANTEJaciel Molina spinal muscular atrophy carrier screen NEGATI VE 2 SMN1 copies , SNP not presen t normal Not Available [facility] [address], [place], [address], 02/18/2025 01:11:43 02/19/20 25 02/18/2025 [UNIT Y] KECIA DAYANARA Molina for detailed report, see pdf See PDF normal Not Available [facility] [address], [place], [address], 02/18/2025 01:11:43 02/04/2002/03/2025 HIV 1/2 ANTIG EN/AN TIBOD Y, REFLE X CONFI RMATI ON HIV antigen/anti body Nonrea ctive nonrea ctive HIV-1 antig en and HIV-1 /HIV- 2 antib odies were not detec marvin. No labor atory evide nce of HIV infec tion. Not Available [facility] (Lab) [address], [place], [address], 02/04/2025 14:19:01 02/04/2002/03/2025 HEPAT ITIS B SURFA CE ANTIG EN hepatitis B surface antigen Non-re active non-re active This assay was perfo rmed using [employer] ratio n reage nts and test kits. Value s obtai amy with other assay metho ds or kits canno t be used inter cyr eably . Not Available [facility] (Lab) [address], [place], [address], 02/04/2025 14:19:02 02/04/2002/03/2025 HEPAT ITIS C ANTIB MANAN SCREE N, REFLE X TO CONFI RMATI ON hepatitis C antibody Non-re active non-re active Antib odies to HCV Not Detec marvin, does not exclu de the possi bilit y of expos ure to HCV. Not Available [facility] (Lab) [address], [place], [address], 02/04/2025 14:19:02 02/04/2002/03/2025 RUBEL LA IGG ANTIB MANAN, QUANT rubella antibodies, IgG Reacti ve reacti ve Not Available [facility] (Lab) [address], [place], [address], 02/04/2025 14:19:03 02/04/2002/03/2025 RUBEL LA IGG ANTIB MANAN, QUANT rubella antibodies, IgG quant 11.5 IU/mL >=10 Non-r eacti ve (Non- Immun e) <10 IU/mL React chastity (Immu ne) > or = 10 IU/mL Not Available [facility] (Lab) [address], [place], [address], 02/04/2025 14:19:03 02/04/2002/03/2025 HEMOG LOBIN A1C hemoglobin [...] >8.0% Actio n sugge sted Not Available [facility] (Lab) [address], [place], [address], 02/04/2025 14:19:03 02/04/2002/03/2025 TYPE/ RH/SC REEN ABO/Rh type A POS Not Available [facility] (Lab) [address], [place], [address], 02/04/2025 14:19:04 02/04/20 25 02/03/2025 TYPE/ RH/SC REEN antibody screen NEG Not Available [facility] (Lab) [address], [place], [address], 02/04/2025 14:19:04 02/04/20 25 02/03/2025 TYPE/ RH/SC REEN exp date 2024 23:59 Not Available [facility] (Lab) [address], [place], [address], 02/04/2025 14:19:04 02/04/20 25 02/03/2025 RPR SCREE N, REFLE X TITER /CONF IRMAT ION RPR qualitative Nonrea ctive nonrea ctive Not Available [facility] (Lab) [address], [place], [address], 02/04/2025 14:19:04 04/14/20 25 04/14/2025 HEMOG LOBIN (HGB) HGB 11.0 g/dL (based on docume nted legal sex) 11.6-1 5.4 low Not Available [facility] (Lab) [address], [place], [address], 04/15/2025 12:46:15 04/14/2004/14/2025 HEMAT OCRIT (HCT) HCT 35.7 % (based on docume nted legal sex) 34.0-4 5.0 Not Available [facility] (Lab) [address], [place], [address], 04/15/2025 12:46:16 04/14/2004/14/2025 GTT - GESTA SHASHANK L SCREJaciel N, ACOG OB glucose, 1 hour screen 99 mg/dL 70-[address] [facility] (Lab) [address], [place], [address], 04/15/2025 12:46:16 04/14/2004/14/2025 HIV 1/2 ANTIG EN/AN TIBOD Y, REFLE X CONFI RMATI ON HIV antigen/anti body Nonrea ctive nonrea ctive HIV-1 antig en and HIV-1 /HIV- 2 antib odies were not detec marvin. No labor atory evide nce of HIV infec tion. Not Available [facility] (Lab) [address], [place], [address], 04/15/2025 12:46:17 04/14/2004/14/2025 RPR SCREE N, REFLE X TITER /CONF IRMAT ION RPR qualitative Nonrea ctive nonrea ctive Not Available [facility] (Lab) [address], [place], [address], 04/15/2025 12:46:17 02/04/2002/03/2025 US, obste tric, follo w-up No observ ation record ed. [facility] [address], [place], [address], 02/03/2025 17:50:45 0702/03/2025 US, obste tric, trans vagin al No observ ation record ed. [facility] [address], [place], [address], 02/03/2025 17:50:54 02/04/2002/03/2025 US, obste tric, follo w-up No observ ation record ed. [email or web address] [address], [place], [address], 02/17/2025 09:47:46 03/01/2003/01/2025 US, obste tric, trans vagin al No observ ation record ed. [facility] [address], [place], [address], 03/01/2025 18:51:07 03/01/2003/01/2025 US, obste tric, follo w-up No observ ation record ed. [facility] [address], [place], [address], 03/01/2025 18:51:17 03/01/2003/01/2025 US, obste tric, trans vagin al No observ ation record ed. [email or web address] [address], [place], [address], 03/04/2025 11:18:02 04/13/2004/13/2025 US, obste tric, follo w-up No observ ation record ed. [email or web address] [address], [place], [address], 04/18/2025 10:57:58 04/13/2004/13/2025 US, obste tric, follo w-up No observ ation record ed. [address], [place], [address], 04/13/2025 14:33:43 04/13/2004/13/2025 US, obste tric, trans vagin al No observ ation record ed. [email or web address] [place] [address], [place], [address], 04/13/2025 14:33:53 04/25/2004/25/2025 US, obste tric, follo w-up No observ ation record ed. [address] [facility] [address], [address], 04/26/2025 12:18:39 04/26/2004/25/2025 US, obste tric, follo w-up No observ ation record ed. [address], [address], 05/16/2025 16:36:08 05/16/2005/16/2025 US, obste tric, follo w-up No observ ation record ed. GEOFFREY Choie [address], [place], [address], 06/02/2025 12:50:00 05/16/2005/16/2025 US, obste tric, follo w-up No observ ation record ed. [facility] [address], [place], [address], 05/16/2025 18:39:43 05/16/2005/16/2025 US, obste tric, trans vagin al No observ ation record ed. [facility] [address], [place], [address], 05/16/2025 18:39:52 Result Notes None recorded. Problems Name Problem SNOMED Code Status Onset Date Resolution Date Notes Provider Name and Address Organization Details Recorded Time 83770080 Active [facility]24 [facility] 14:57:49 Low-lying placenta 393731494 Active 2024 8mm from OS at 21 weeks, repeat in 4 weeks faxed referral SSAndres Daugherty 04/18 Amberly Arteaga [facility] 11:02:39 Problem Notes None recorded. Procedures Surgical History Date Name Laterality Status Provider Name and Address Organization Details Recorded Time 11/19/19 18 tonsillectomy and adenoidectomy completed ALAN Cai [facility] 01/09/2025 12:24:46 tonsilectomy/winston oids completed Rebekah Blanche [facility] 03/01/2025 16:34:53 Imaging Results None recorded. Procedure Notes None recorded. Medical Equipment None Reported. Allergies Allergen ID Allergen Name Allergen Category Reaction Reaction Severity Criticality Documentation Date Start Date Code Code System Note Provider Name and Address Organization Details Recorded Time naproxen medicatio n abdominal pain moderate Not available 01/09/2025 7258 RxNorm [facility] 12:21:23 Medications Name Sig Start Date Stop Date Status Note LastModified by Organization Details LastModified Time misoprostol 200 mcg tablet TAKE 4 TABLETS EVERY DAY BY MOUTH FOR ONE DAY 01/09 completed Not Available Not Available Not Available active Not Available Not Avai lable Not Available Vitals Date Recorded Body weight Systolic And Diastolic Provider Name and Address Organization Details Last Updated DateTime 05/16/2025 72178.14104 g 127/83 mm[Hg] Delphine Wilson [facility] 05/16/2025 17:52:12 Social History Question Answer Notes LastModified by Organizat ion Details LastModified Time Do You Have An Advance Directive? No Information n ot available 01/09/2025 Are You Blind Or Do You Have Difficulty Seeing? No [email or web address] Information not available 01/09/2025 What Is Your Level Of Caffeine Consumption? Moderate [email or web address] Information not available 01/09/2025 How Much Tobacco Do You Chew? None [email or web address] Information not available 01/09/2025 In The 14 Days Before Symptom Onset, Have You Had Close Contact With A Laboratory-confirme d COVID-19 While That Case Was Ill? No [email or web address] Information n ot available 01/09/2025 In The 14 Days Before Symptom Onset, Have You Had Close Contact With A Person Who Is Under Investigation For COVID-19 While That Person Was Ill? No [email or web address] Information not available 01/09/2025 Have You Been To An Area Known To Be High Risk For COVID-19? No [email or web address] Information not available 01/09/2025 Are You Deaf Or Do You Have Serious Difficulty Hearing? No Information not available 01/09/2025 What Type Of Diet Are You Following? REGULAR [email or web address] Information n ot available 01/09/2025 What Is The Highest Grade Or Level Of School You Have Completed Or The Highest Degree You Have Received? CE49497-7 [email or web address] Information not available 01/09/2025 Are There Any Guns Present In Your Home? No [email or web address] Information not available 01/09/2025 Do You Use Protection During Sex? No [email or web address] Information not available 01/09/2025 Do You Use Your Seat Belt Or Car Seat Routinely? Yes [email or web address] Information not available 01/09/2025 Are You Sexually Active? Yes [email or web address] Information not available 03/01/2025 Do You Have Smoke And Carbon Monoxide Detectors In Your Home? Yes [email or web address] Information not available 01/09/2025 How Much Tobacco Do You Smoke? No [email or web address] Information not available 01/09/2025 Do You Use Sunscreen Routinely? No Information not available 01/09/2025 Have You Used IV Drugs? No [email or web address] Information not available 01/09/2025 Sex: Unknown Functional Status Question Answer Note LastModified by Organizat ion Details LastModified Time Do you use any illicit or recreational drugs? No [email or web address] Information not available 01/09/2025 What is your level of alcohol consumption? None [email or web address] Information not available 01/09/2025 Are you currently employed? Yes [email or web address] Information not available 03/01/2025 Are you able to walk independently without assistance or assistive devices? 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 Occasional [email or web address] Information not available 01/09/2025 Mental Status Question Answer Note LastModified by Organization D etails LastModified Time Do you feel stressed (tense, restless, nervous, or anxious, or unable to sleep at night)? [id number] [email or web address] Information not available 01/09/2025 Family History Relationship Description Onset Age of this Age Resolved Age Notes LastModified by Organization Details LastModified Time Maternal Grandfather Heart disease [email or web address] Not available 2024 12:25:30 Medical History Condition [...] ICD10 Code Diagnosis IMO Codes Diagnosis Note [id number] DUARTE RAMÍREZ MD [place] [address] [address] 04/27/2025 10:39:03 04/27/2025 12:08:50 Low-lying placenta 317735136 O44.40 03279573 - placental mass 1.7cm from os, with maternal vessel at edge of placenta- MFM follow up in 3 weeks- pelvic rest Gestation period, 33 weeks 14266678 Z3A.33 [id number] DUARTE RAMÍREZ MD [place] [address],[place] [address] 05/10/2025 10:07:47 05/10/2025 12:24:38 Low-lying placenta 842053461 O44.40 84343787 - placental mass 1.7cm from os, with maternal vessel at edge of placenta- MFM follow up in 3 weeks; will reschedule to office due to cost- pelvic rest Gestation period, 34 weeks 85591467 Z3A.34 [id number] DUARTE RAMÍREZ MD [place] [address],[place] [address] 05/16/2025 16:56:29 05/17/2025 08:24:49 Low-lying placenta 779767272 O44.40 O09.523 Z3A.35 832493 - placental mass 1.7cm from os, with maternal vessel at edge of placenta- MFM follow up in 3 weeks; will reschedule to office due to cost- pelvic rest [id number] MD Yoanna PORTER [address],[place] [address] 05/16/2025 16:57:18 05/17/2025 22:17:31 care status [id number] Z34.83 [id number] Health Concerns Section Related Observation LastModified by Organization Detai ls LastModified Time None Recorded Concern Status LastModified by Organization Details LastModified Time None Recorded Payers Encounter Date Sequence Insurance Name Policy Number Policy Torres Covered Member ID Torres Member ID Guarantor Name 05/16/2025 1 *SELF PAY* Juma Walshcutt Notes Date Note Type Note Provider Name and Address Organization Details Recorded Time 05/16/2025 text/html Generic HPI TemplateReported by Patient DUARTE RAMÍREZ MD [address], [place], [address], [place] [facility] 05/17/2025 17:42:09 OBGyn Episode Ob Episode Information Episode Created Date Number of Fetuses Patient Bloodtype Patient rh Status Prepregnancy Weight lbs Domestic Partner Domestic Partner Phone Father Name Coke Burner Status 01/18/20 25 1 A Positive OPEN Fetus Data First Name Last Name Admitted to NICU Weight (g) Sex Living Outcome Pediatric Complications Fetus ID Race Codes Race Delivery Type [id number] Problems Problem Notes Problem Name Start Date End Date Resolution Snomed Code Not e Low-lying placenta 02/03/2025 040148911 8mm from OS at 21 weeks, repeat [...] Type Weight in lbs Pre/Post Dialysis Refused 174.49337225665 BP Diastolic BP Location Tested BP Systolic [...] Type Weight in lbs Pre/Post Dialysis Refused 184.544542416524 BP Diastolic BP Location Tested BP Systolic [...] Type Weight in lbs Pre/Post Dialysis Refused 194.396588232111 BP Diastolic BP Location Tested BP Systolic BP Type 75 L arm 129 sitting Fetus Heart Rate Present Fetus Movement A Yes Comments Good movement. Having some increased back pain, mostly with laying down. EFW 67%, placental mass now 1.9cm away from os, however there is a low flow vascularity seen between the placenta and the cervix. Will send to [facility] for further evaluation. Continue pelvic rest. GCT and labs today. RTC 2 weeks. Flowsheet Date 04/27/2025 Jay Score Blood Edema Fundus Height Fundus Units Glucose Ketones Leukocytes Nitrite Labor Signs Protein Cervic Dilation Cervic Effacement Cervic Station Type Weight in lbs Pre/Post Dialysis Refused Weight 199.325482212723 BP Diastolic BP Location Tested BP Systolic BP Type 72 L arm 118 sitting Fetus Heart Rate Present A 145 Fetus Movement A Yes Comments Flowsheet Date 05/10/2025 Jay Score Blood Edema Fundus Height Fundus Units Glucose Ketones Leukocytes Nitrite Labor Signs Protein Cervic Dilation Cervic Effacement Cervic Station Type Weight in lbs Pre/Post Dialysis Refused 200.784721439529 BP Diastolic BP Location Tested BP Systolic [...] Type Weight in lbs Pre/Post Dialysis Refused 198.089038914655 BP Diastolic BP Location Tested BP Systolic [...] Weight in lbs Pre/Post Dialysis Refused Weight 202.965387043402 BP Diastolic BP Location Tested BP Systolic [...] Weight in lbs Pre/Post Dialysis Refused Weight 202.519857167319 BP Diastolic BP Location Tested BP Systolic [...] Weight in lbs Pre/Post Dialysis Refused Weight 205.784297788843 BP Diastolic BP Location Tested BP Systolic [...] Weight in lbs Pre/Post Dialysis Refused Weight 204.406072682192 BP Diastolic BP Location Tested BP Systolic [...]
--- OUTSIDE RECORDS SUMMARY | 2025-06-14 19:53 | XMS_ITS | Continuity of Care Document ---
Author Organization [facility] Address [address] [place] [address] Assessment No assessment recorded. Plan of Treatment [...] Not Available [facility] [address], [place], [address], 02/11/2025 00:34:26 02/12/20 25 02/11/2025 [UNIT Y] ANEUP LOIDY NIPT 22Q11.2 microdeletio n LOW RISK <1 in 10,000 normal Not Available [facility] [address], [place], [address], 02/11/2025 00:34:26 02/12/20 25 02/11/2025 [UNIT Y] ANEUP LOIDY NIPT sex chromosome aneuploidy NOT DETECT ED normal Not Available [facility] [address], [place], [address], 02/11/2025 00:34:26 02/12/20 25 02/11/2025 [UNIT Y] ANEUP LOIDY NIPT monosomy X LOW RISK <1 in 10,000 normal Not Available [facility] [address], [place], [address], 02/11/2025 00:34:26 02/12/20 25 02/11/2025 [UNIT Y] ANEUP LOIDY NIPT trisomy 13 LOW RISK <1 in 10,000 normal Not Available [facility] [address], [place], [address], 02/11/2025 00:34:26 02/12/20 25 02/11/2025 [UNIT Y] ANEUP LOIDY NIPT trisomy 18 LOW RISK <1 in 10,000 normal Not Available [facility] [address], [place], [address], 02/11/2025 00:34:26 02/12/20 25 02/11/2025 [UNIT Y] ANEUP LOIDY NIPT trisomy 21 LOW RISK <1 in 10,000 normal Not Available [facility] [address], [place], [address], 02/11/2025 00:34:26 02/12/20 25 02/11/2025 [UNIT Y] ANEUP LOIDY NIPT sex FEMALE normal Not Available [facility] [address], [place], [address], 02/11/2025 00:34:26 02/12/20 25 02/11/2025 [UNIT Y] ANEUP LOIDY NIPT gestation SINGLE TON normal Not Available [facility] [address], [place], [address], 02/11/2025 00:34:26 02/12/20 25 02/11/2025 [UNIT Y] ANEUP LOIDY NIPT for detailed report, see pdf See PDF normal Not Available [facility] [address], [place], [address], 02/11/2025 00:34:26 02/19/20 25 02/18/2025 [UNIT Y] KECIA DAYANARA DIAMANTEJaciel Molina sickle cell disease/beta -thalassemia /hemoglobino pathies carrier screen NEGATI VE normal Not Available [facility] [address], [place], [address], 02/18/2025 01:11:43 02/19/20 25 02/18/2025 [UNIT Y] KECIA BOBBYJaciel Molina alpha-thalas semia carrier screen NEGATI VE normal Not Available [facility] [address], [place], [address], 02/18/2025 01:11:43 02/19/20 25 02/18/2025 [UNIT Y] KECIA DAYANARA DIAMANTEJaciel Molina cystic fibrosis carrier screen NEGATI VE normal Not Available [facility] [address], [place], [address], 02/18/2025 01:11:43 02/19/20 25 02/18/2025 [UNIT Y] KECIA DAYANARA DIAMANTEJaciel Molina spinal muscular atrophy carrier screen NEGATI VE 2 SMN1 copies , SNP not presen t normal Not Available [facility] [address], [place], [address], 02/18/2025 01:11:43 02/19/20 25 02/18/2025 [UNIT Y] KECIA DAYANARA Molina for detailed report, see pdf See PDF normal Not Available [facility] [address], [place], [address], 02/18/2025 01:11:43 02/04/2002/03/2025 HIV 1/2 ANTIG EN/AN TIBOD Y, REFLE X CONFI RMATI ON HIV antigen/anti body Nonrea ctive nonrea ctive HIV-1 antig en and HIV-1 /HIV- 2 antib odies were not detec marvin. No labor atory evide nce of HIV infec tion. Not Available [facility] (Lab) [address], [place], [address], 02/04/2025 14:19:01 02/04/2002/03/2025 HEPAT ITIS B SURFA CE ANTIG EN hepatitis B surface antigen Non-re active non-re active This assay was perfo rmed using [employer] ratio n reage nts and test kits. Value s obtai amy with other assay metho ds or kits canno t be used inter cyr eably . Not Available [facility] (Lab) [address], [place], [address], 02/04/2025 14:19:02 02/04/2002/03/2025 HEPAT ITIS C ANTIB MANAN SCREE N, REFLE X TO CONFI RMATI ON hepatitis C antibody Non-re active non-re active Antib odies to HCV Not Detec marvin, does not exclu de the possi bilit y of expos ure to HCV. Not Available [facility] (Lab) [address], [place], [address], 02/04/2025 14:19:02 02/04/2002/03/2025 RUBEL LA IGG ANTIB MANAN, QUANT rubella antibodies, IgG Reacti ve reacti ve Not Available [facility] (Lab) [address], [place], [address], 02/04/2025 14:19:03 02/04/2002/03/2025 RUBEL LA IGG ANTIB MANAN, QUANT rubella antibodies, IgG quant 11.5 IU/mL >=10 Non-r eacti ve (Non- Immun e) <10 IU/mL React chastity (Immu ne) > or = 10 IU/mL Not Available [facility] (Lab) [address], [place], [address], 02/04/2025 14:19:03 02/04/2002/03/2025 HEMOG LOBIN A1C hemoglobin A1C 5.0 % 4.0-5. 6 The Ameri can Diabe sharmila Assoc iatio n recom mends that a prima ry goal of thera py ziaiah d be a HBA1C of < 7% and that physi cians shoul d reeva luate the treat ment regim en in patie nts with HBA1C value s consi stent ly > 8%. <5.7% Evelyn l 5.7 - 6.4% Incre ased risk for diabe sharmila >=6.5 % Diagn ostic of diabe sharmila <7.0% Goal of thera py >8.0% Actio n sugge sted Not Available [facility] (Lab) [address], [place], [address], 02/04/2025 14:19:03 02/04/2002/03/2025 TYPE/ RH/SC REEN ABO/Rh type A POS Not Available [facility] (Lab) [address], [place], [address], 02/04/2025 14:19:04 02/04/20 25 02/03/2025 TYPE/ RH/SC REEN antibody screen NEG Not Available [facility] (Lab) [address], [place], [address], 02/04/2025 14:19:04 02/04/20 25 02/03/2025 TYPE/ RH/SC REEN exp date 2024 23:59 Not Available [facility] (Lab) [address], [place], [address], 02/04/2025 14:19:04 02/04/20 25 02/03/2025 RPR SCREE N, REFLE X TITER /CONF IRMAT ION RPR qualitative Nonrea ctive nonrea ctive Not Available [facility] (Lab) [address], [place], [address], 02/04/2025 14:19:04 04/14/20 25 04/14/2025 HEMOG LOBIN (HGB) HGB 11.0 g/dL (based on docume nted legal sex) 11.6-1 5.4 low Not Available [facility] (Lab) [address], [place], [address], 04/15/2025 12:46:15 04/14/20 25 04/14/2025 HEMAT OCRIT (HCT) HCT 35.7 % (based on docume nted legal sex) 34.0-4 5.0 Not Available [facility] (Lab) [address], [place], [address], 04/15/2025 12:46:16 04/14/20 25 04/14/2025 GTT - GESTA SHASHANK L SCREE N, ACOG OB glucose, 1 hour screen 99 mg/dL 70-135 Not Available [facility] (Lab) [address], [place], [address], 04/15/2025 12:46:16 04/14/20 25 04/14/2025 HIV 1/2 ANTIG EN/AN TIBOD Y, REFLE X CONFI RMATI ON HIV antigen/anti body Nonrea ctive nonrea ctive HIV-1 antig en and HIV-1 /HIV- 2 antib odies were not detec marvin. No labor atory evide nce of HIV infec tion. Not Available [facility] (Lab) [address], [place], [address], 04/15/2025 12:46:17 04/14/20 25 04/14/2025 RPR SCREE N, REFLE X TITER /CONF IRMAT ION RPR qualitative Nonrea ctive nonrea ctive Not Available [facility] (Lab) [address], [place], [address], 04/15/2025 12:46:17 05/24/20 25 05/24/2025 CULTU RE: [...] jarrodg Lab: [facility] [address] [facility] [address] Tel: CULTU RE ----- ----- ----- --- No Group B strep isola marvin at 2 days (devin ctive broth enhan cemen t) Not Available [facility] (Lab) [address], [place], [address], 05/27/2025 15:26:08 02/04/20 25 02/03/2025 US, obste tric, follo w-up No observ ation record ed. [facility] [address], [place], [address], 02/03/2025 17:50:45 02/04/20 25 02/03/2025 US, obste tric, trans vagin al No observ ation record ed. [facility] [address], [place], [address], 02/03/2025 17:50:54 02/04/20 25 02/03/2025 US, obste tric, follo w-up No observ ation record ed. [email or web address] [address] [address] [place] [address] [address], [place], [address], 02/17/2025 09:47:46 03/01/2003/01/2025 US, obste tric, trans vagin al No observ ation record ed. [facility] [address], [place], [address], 03/01/2025 18:51:07 03/01/20 25 03/01/2025 US, obste tric, follo w-up No observ ation record ed. [facility] [address], [place], [address], 03/01/2025 18:51:17 03/01/2003/01/2025 US, obste tric, trans vagin al No observ ation record ed. [email or web address] [facility] [address], [place], [address], 03/04/2025 11:18:02 04/13/2004/13/2025 US, obste tric, follo w-up No observ ation record ed. [email or web address] [facility] [address], [place], [address], 04/18/2025 10:57:58 04/13/2004/13/2025 US, obste tric, follo w-up No observ ation record ed. [email or web address] [facility] [address], [place], [address], 04/13/2025 14:33:43 04/13/2004/13/2025 US, obste tric, trans vagin al No observ ation record ed. [email or web address] [facility] [address], [place], [address], 04/13/2025 14:33:53 04/25/2004/25/2025 US, obste tric, follo w-up No observ ation record ed. [email or web address] [address], [address], 04/26/2025 12:18:39 04/26/2004/25/2025 US, obste tric, follo w-up No observ ation record ed. [email or web address] [facility] [address], [address], 05/16/2025 16:36:08 05/16/2005/16/2025 US, obste tric, follo w-up No observ ation record ed. GEOFFREY Carson [address], [place], [address], 06/02/2025 12:50:00 05/16/2005/16/2025 US, obste tric, follo w-up No observ ation record ed. [facility] [address], [place], [address], 05/16/2025 18:39:43 05/16/2005/16/2025 US, obste tric, trans vagin al No observ ation record ed. [facility] [address], [place], [address], 05/16/2025 18:39:52 Result Notes None recorded. Problems Name Problem SNOMED Code Status Onset Date Resolution Date Notes Provider Name and Address Organization Details Recorded Time 33665499 Active 2024 ALAN Cai [facility] 14:57:49 Low-lying placenta 508059275 Active 2024 8mm from OS at 21 weeks, repeat in 4 weeks faxed referral [facility] [place] 04/18 Amberly Arteaga [facility] 11:02:39 Problem Notes None recorded. Procedures Surgical History Date Name Laterality Status Provider Name and Address Organization Details Recorded Time 11/19/19 18 tonsillectomy and adenoidectomy completed ALAN Cai [facility] 01/09/2025 12:24:46 tonsilectomy/winston oids completed Rebekah Mancia [facility] 03/01/2025 16:34:53 Imaging Results None recorded. Procedure Notes None recorded. Medical Equipment None Reported. Allergies Allergen ID Allergen Name Allergen Category Reaction Reaction Severity Criticality Documentation Date Start Date Code Code System Note Provider Name and Address Organization Details Recorded Time naproxen medicatio n abdominal pain moderate Not available 01/09/2025 7258 RxNorm ALAN Cai [facility] 12:21:23 Medications Name Sig Start Date [...] and Address Organization Details Last Updated DateTime 05/24/2025 165.1 cm 33.6 kg/m2 14612.66 g 110/70 mm[Hg] Delphine Steve [facility] 05/24/2025 16:03:22 Social History Question Answer Notes LastModified by Organizat ion Details LastModified Time Do You Have An Advance Directive? No [email or web address] Information n ot available 01/09/2025 Are You Blind Or Do You Have Difficulty Seeing? No [email or web address] Information not available 01/09/2025 What Is Your Level Of Caffeine Consumption? Moderate [email or web address] Information not available 01/09/2025 How Much Tobacco Do You Chew? None [email or web address] Information not available 01/09/2025 In The 14 Days Before Symptom Onset, Have You Had Close Contact With A Laboratory-confirme d COVID-19 While That Case Was Ill? No [email or web address] Information n ot available 01/09/2025 In The 14 Days Before Symptom Onset, Have You Had Close Contact With A Person Who Is Under Investigation For COVID-19 While That Person Was Ill? No [email or web address] Information not available 01/09/2025 Have You Been To An Area Known To Be High Risk For COVID-19? No [email or web address] Information not available 01/09/2025 Are You Deaf Or Do You Have Serious Difficulty Hearing? No [email or web address] Information not available 01/09/2025 What Type Of Diet Are You Following? REGULAR [email or web address] Information n ot available 01/09/2025 What Is The Highest Grade Or Level Of School You Have Completed Or The Highest Degree You Have Received? [id number] [email or web address] Information not available 01/09/2025 Are There Any Guns Present In Your Home? No [email or web address] Information not available 01/09/2025 Do You Use Protection During Sex? No [email or web address] Information not available 01/09/2025 Do You Use Your Seat Belt Or Car Seat Routinely? Yes [email or web address] Information not available 01/09/2025 Are You Sexually Active? Yes [email or web address] Information not available 03/01/2025 Do You Have Smoke And Carbon Monoxide Detectors In Your Home? Yes Information not available 01/09/2025 How Much Tobacco Do You Smoke? No [email or web address] Information not available 01/09/2025 Do You Use Sunscreen Routinely? No [email or web address] Information not available 01/09/2025 Have You Used IV Drugs? No [email or web address] Information not available 01/09/2025 Sex: Unknown Functional Status Question Answer Note LastModified by Organizat ion Details LastModified Time Do you use any illicit or recreational drugs? No [email or web address] Information not available 01/09/2025 What is your level of alcohol consumption? None [email or web address] Information not available 01/09/2025 Are you currently employed? Yes [email or web address] Information not available 03/01/2025 Are you able to walk independently without assistance or assistive devices? 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 Occasional [email or web address] Information not available 01/09/2025 Mental Status Question Answer Note LastModified by Organization D etails LastModified Time Do you feel stressed (tense, restless, nervous, or anxious, or unable to sleep at night)? [id number] [email or web address] Information not available 01/09/2025 Family History Relationship Description Onset Age of this Age Resolved Age Notes LastModified by Organization Details LastModified Time Maternal Grandfather Heart disease [email or web address] Not available 2024 12:25:30 Medical History Condition Response Allergies (Food, seasonal, environmental ) N Other N Breast Cancer N Drug/Latex Allergies/Reactions N Blood Transfusion N Dermatologic Disorders N Lung Disease N Defects or Inherited Disease N Breast Problem N Gestational Diabetes N Hematologic disorders N Anesthesia Complications N History of STI N Deep Vein Thrombosis N Polycystic ovary syndrome N Anxiety Disorder N Autoimmune disease N Arthritis N Infertility N Polyps N Acid Reflux (GERD) N History of abnormal pap N Cancer N Stroke N Varicosities N Neurologic/Epilepsy N Endometriosis N High Cholesterol N Headaches N Fibromyalgia N Kidney Disease N Heart Problems N Kidney or Bladder Problems N Thyroid Problems N GI Problems N Eating Disorder [...] ICD10 Code Diagnosis IMO Codes Diagnosis Note [id number] DUARTE RAMÍREZ MD [facility] [address] [address] 04/27/2025 10:39:03 04/27/2025 12:08:50 Low-lying placenta 788463445 O44.40 27041388 - placental mass 1.7cm from os, with maternal vessel at edge of placenta- MFM follow up in 3 weeks- pelvic rest Gestation period, 33 weeks 09174461 Z3A.33 [id number] DUARTE RAMÍREZ MD [facility] [address] [address] 05/10/2025 10:07:47 05/10/2025 12:24:38 Low-lying placenta 424721584 O44.40 55361217 - placental mass 1.7cm from os, with maternal vessel at edge of placenta- MFM follow up in 3 weeks; will reschedule to office due to cost- pelvic rest Gestation period, 34 weeks 64416998 Z3A.34 [id number] DUARTE RAMÍREZ MD [facility] [address],[place] [address] 05/16/2025 16:56:29 05/17/2025 08:24:49 Low-lying placenta 797551735 O44.40 O09.523 Z3A.35 206007 - placental mass 1.7cm from os, with maternal vessel at edge of placenta- MFM follow up in 3 weeks; will reschedule to office due to cost- pelvic rest [id number] DUARTE RAMÍREZ MD [facility] [address],[place] [address] 05/16/2025 16:57:18 05/17/2025 22:17:31 care status [id number] Z34.83 [id number] DUARTE RAMÍREZ MD [facility] [address] [address] 05/24/2025 15:57:07 05/24/2025 16:25:52 care status [id number] Z34.83 [id number] Health Concerns Section Related Observation LastModified by Organization Detai ls LastModified Time None Recorded Concern Status LastModified by Organization Details LastModified Time None Recorded Payers Encounter Date Sequence Insurance Name Policy Number Policy Torres Covered Member ID Torres Member ID Guarantor Name 05/24/2025 1 *SELF PAY* Juma Jackson Notes Date Note Type Note Provider Name and Address Organization Details Recorded Time 05/24/2025 text/html Generic HPI TemplateReported by Patient DUARTE RAMÍREZ MD [address], [place], [address], [facility] 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 Technician Status 01/18/20 25 1 A Positive OPEN Fetus Data First Name Last Name Admitted to NICU Weight (g) Sex Living Outcome Pediatric Complications Fetus ID Race Codes Race Delivery Type [id number] Problems Problem Notes Problem Name Start Date End Date Resolution Snomed Code Not e Low-lying placenta 02/03/2025 863419875 8mm from OS at 21 weeks, repeat [...] Type Weight in lbs Pre/Post Dialysis Refused 174.47307028674 BP Diastolic BP Location Tested BP Systolic [...] Type Weight in lbs Pre/Post Dialysis Refused 184.749212321430 BP Diastolic BP Location Tested BP Systolic [...] Type Weight in lbs Pre/Post Dialysis Refused 194.989205656186 BP Diastolic BP Location Tested BP Systolic BP Type 75 L arm 129 sitting Fetus Heart Rate Present Fetus Movement A Yes Comments Good movement. Having some increased back pain, mostly with laying down. EFW 67%, placental mass now 1.9cm away from os, however there is a low flow vascularity seen between the placenta and the cervix. Will send to [facility] for further evaluation. Continue pelvic rest. GCT and labs today. RTC 2 weeks. Flowsheet Date 04/27/2025 Jay Score Blood Edema Fundus Height Fundus Units Glucose Ketones Leukocytes Nitrite Labor Signs Protein Cervic Dilation Cervic Effacement Cervic Station Type Weight in lbs Pre/Post Dialysis Refused Weight 199.088063143835 BP Diastolic BP Location Tested BP Systolic BP Type 72 L arm 118 sitting Fetus Heart Rate Present A 145 Fetus Movement A Yes Comments Flowsheet Date 05/10/2025 Jay Score Blood Edema Fundus Height Fundus Units Glucose Ketones Leukocytes Nitrite Labor Signs Protein Cervic Dilation Cervic Effacement Cervic Station Type Weight in lbs Pre/Post Dialysis Refused 200.030573136565 BP Diastolic BP Location Tested BP Systolic [...] Type Weight in lbs Pre/Post Dialysis Refused 198.389817872787 BP Diastolic BP Location Tested BP Systolic [...] Weight in lbs Pre/Post Dialysis Refused Weight 202.444272399924 BP Diastolic BP Location Tested BP Systolic [...] Weight in lbs Pre/Post Dialysis Refused Weight 202.393731095691 BP Diastolic BP Location Tested BP Systolic [...] Weight in lbs Pre/Post Dialysis Refused Weight 205.932877506953 BP Diastolic BP Location Tested BP Systolic [...] Weight in lbs Pre/Post Dialysis Refused Weight 204.947895646073 BP Diastolic BP Location Tested BP Systolic [...]
--- OUTSIDE RECORDS SUMMARY | 2025-06-14 19:53 | XMS_ITS | Continuity of Care Document ---
Author Organization [facility] Address [address] [place] [address] [place] [address] Assessment No assessment recorded. Plan of Treatment Reminders Order Date Submit Date Provider Last Modified By Organization Details Last Modified Time Details Appointments INDUCTION 2024 05:00A Andres RAMÍREZ MD Not available Not available Not available Lab None recorded. Referral None recorded. Procedures None recorded. Surgeries None recorded. Imaging US, obstetric , follow-up 2024 025 [facility], [facility] [address], [place], [address], 05/18/2025 15:56:18 US, obstetric , transvagi nal 2024 025 [facility], [facility] [address], [address], [place], [address], 05/18/2025 15:56:13 Medication Orders None recorded. Patient TargetsNo targets recorded. Patient InstructionsNo instructions recorded. Reason for Referral None Reported. Results Created Date Observation Date Name Description Value Unit Range Abnormal Flag Note LastModifiedBy Organization Detail LastModifiedTime 02/12/2002/11/2025 [UNIT Y] ANEUP LOIDY NIPT fraction 13.7% normal Not Available [facility] [address], [place], [address], 02/11/2025 00:34:26 02/12/20 25 02/11/2025 [UNIT Y] ANEUP LOIDY NIPT 22Q11.2 microdeletio n LOW RISK <1 in 10,000 normal Not Available [facility] [address], [place], [address], 02/11/2025 00:34:26 02/12/20 25 02/11/2025 [UNIT Y] ANEUP LOIDY NIPT sex chromosome aneuploidy NOT DETECT ED normal Not Available [facility] [address], [place], [address], 02/11/2025 00:34:26 02/12/20 25 02/11/2025 [UNIT Y] ANEUP LOIDY NIPT monosomy X LOW RISK <1 in 10,000 normal Not Available [facility] [address], [place], [address], 02/11/2025 00:34:26 02/12/20 25 02/11/2025 [UNIT Y] ANEUP LOIDY NIPT trisomy 13 LOW RISK <1 in 10,000 normal Not Available [facility] [address], [place], [address], 02/11/2025 00:34:26 02/12/20 25 02/11/2025 [UNIT Y] ANEUP LOIDY NIPT trisomy 18 LOW RISK <1 in 10,000 normal Not Available [facility] [address], [place], [address], 02/11/2025 00:34:26 02/12/20 25 02/11/2025 [UNIT Y] ANEUP LOIDY NIPT trisomy 21 LOW RISK <1 in 10,000 normal Not Available [facility] [address], [place], [address], 02/11/2025 00:34:26 02/12/20 25 02/11/2025 [UNIT Y] ANEUP LOIDY NIPT sex FEMALE normal Not Available [facility] [address], [place], [address], 02/11/2025 00:34:26 02/12/20 25 02/11/2025 [UNIT Y] ANEUP LOIDY NIPT gestation SINGLE TON normal Not Available [facility] [address], [place], [address], 02/11/2025 00:34:26 02/12/20 25 02/11/2025 [UNIT Y] ANEUP LOIDY NIPT for detailed report, see pdf See PDF normal Not Available [facility] [address], [place], [address], 02/11/2025 00:34:26 02/19/20 25 02/18/2025 [UNIT Y] KECIA Molina sickle cell disease/beta -thalassemia /hemoglobino pathies carrier screen NEGATI VE normal Not Available [facility] [address], [place], [address], 02/18/2025 01:11:43 02/19/20 25 02/18/2025 [UNIT Y] KECIA Molina alpha-thalas semia carrier screen NEGATI VE normal Not Available [facility] [address], [place], [address], 02/18/2025 01:11:43 02/19/20 25 02/18/2025 [UNIT Y] KECIA Molina cystic fibrosis carrier screen NEGATI VE normal Not Available [facility] [address], [place], [address], 02/18/2025 01:11:43 02/19/20 25 02/18/2025 [UNIT Y] KECIA Molina spinal muscular atrophy carrier screen NEGATI VE 2 SMN1 copies , SNP not presen t normal Not Available [facility] [address], [place], [address], 02/18/2025 01:11:43 02/19/20 25 02/18/2025 [UNIT Y] KECIA Molina for detailed report, see pdf See PDF normal Not Available [facility] [address], [place], [address], 02/18/2025 01:11:43 02/04/2002/03/2025 HIV 1/2 ANTIG EN/AN TIBOD Y, REFLE X CONFI RMATI ON HIV antigen/anti body Nonrea ctive nonrea ctive HIV-1 antig en and HIV-1 /HIV- 2 antib odies were not detec marvin. No labor atory evide nce of HIV infec tion. Not Available [facility] (Lab) [address], [place], [address], 02/04/2025 14:19:01 02/04/2002/03/2025 HEPAT ITIS B SURFA CE ANTIG EN hepatitis B surface antigen Non-re active non-re active This assay was perfo rmed using [employer] ratio n reage nts and test kits. Value s obtai amy with other assay metho ds or kits canno t be used inter cyr eably . Not Available [facility] (Lab) [address], [place], [address], 02/04/2025 14:19:02 02/04/2002/03/2025 HEPAT ITIS C ANTIB MANAN SCREE N, REFLE X TO CONFI RMATI ON hepatitis C antibody Non-re active non-re active Antib odies to HCV Not Detec marvin, does not exclu de the possi bilit y of expos ure to HCV. Not Available [facility] (Lab) [address], [place], [address], 02/04/2025 14:19:02 02/04/2002/03/2025 RUBEL LA IGG ANTIB MANAN, QUANT rubella antibodies, IgG Reacti ve reacti ve Not Available [facility] (Lab) [address], [place], [address], 02/04/2025 14:19:03 02/04/20 25 02/03/2025 RUBEL LA IGG ANTIB MANAN, QUANT rubella antibodies, IgG quant 11.5 IU/mL >=10 Non-r eacti ve (Non- Immun e) <10 IU/mL React chastity (Immu ne) > or = 10 IU/mL Not Available [facility] (Lab) [address], [place], [address], 02/04/2025 14:19:03 02/04/20 25 02/03/2025 HEMOG LOBIN A1C hemoglobin A1C 5.0 % [...] >8.0% Actio n sugge sted Not Available [facility] (Lab) [address], [place], [address], 02/04/2025 14:19:03 02/04/2002/03/2025 TYPE/ RH/SC REEN ABO/Rh type A POS Not Available [facility] (Lab) [address], [place], [address], 02/04/2025 14:19:04 02/04/2002/03/2025 TYPE/ RH/SC REEN antibody screen NEG Not Available [facility] (Lab) [address], [place], [address], 02/04/2025 14:19:04 02/04/20 25 02/03/2025 TYPE/ RH/SC REEN exp date 2024 23:59 Not Available [facility] (Lab) [address], [place], [address], 02/04/2025 14:19:04 02/04/2002/03/2025 RPR SCREE N, REFLE X TITER /CONF IRMAT ION RPR qualitative Nonrea ctive nonrea ctive Not Available [facility] (Lab) [address], [place], [address], 02/04/2025 14:19:04 04/14/20 25 04/14/2025 HEMOG LOBIN (HGB) HGB 11.0 g/dL (based on docume nted legal sex) 11.6-1 5.4 low Not Available [facility] (Lab) [address], [place], [address], 04/15/2025 12:46:15 04/14/20 25 04/14/2025 HEMAT OCRIT (HCT) HCT 35.7 % (based on docume nted legal sex) 34.0-4 5.0 Not Available [facility] (Lab) [address], [place], [address], 04/15/2025 12:46:16 04/14/20 25 04/14/2025 GTT - GESTA SHASHANK L SCREE N, ACOG OB glucose, 1 hour screen 99 mg/dL 70-[address] [facility] (Lab) [address] [place], [address], 04/15/2025 12:46:16 04/14/2004/14/2025 HIV 1/2 ANTIG EN/AN TIBOD Y, REFLE X CONFI RMATI ON HIV antigen/anti body Nonrea ctive nonrea ctive HIV-1 antig en and HIV-1 /HIV- 2 antib odies were not detec marvin. No labor atory evide nce of HIV infec tion. Not Available [facility] (Lab) [address], [place], [address], 04/15/2025 12:46:17 04/14/20 25 04/14/2025 RPR SCREE N, REFLE X TITER /CONF IRMAT ION RPR qualitative Nonrea ctive nonrea ctive Not Available [facility] (Lab) [address], [place], [address], 04/15/2025 12:46:17 02/04/2002/03/2025 US, obste tric, follo w-up No observ ation record ed. [facility] [address], [place], [address], 02/03/2025 17:50:45 02/04/2002/03/2025 US, obste tric, trans vagin al No observ ation record ed. [facility] [address], [place], [address], 02/03/2025 17:50:54 02/04/20 25 02/03/2025 US, obste tric, follo w-up No observ ation record ed. [email or web address] [address], [place], [address], 02/17/2025 09:47:46 03/01/2003/01/2025 US, obste tric, trans vagin al No observ ation record ed. [facility] [address], [place], [address], 03/01/2025 18:51:07 03/01/2003/01/2025 US, obste tric, follo w-up No observ ation record ed. [facility] [address], [place], [address], 03/01/2025 18:51:17 03/01/2003/01/2025 US, obste tric, trans vagin al No observ ation record ed. [email or web address] [address], [place], [address], 03/04/2025 11:18:02 09/04/13/2025 US, obste tric, follo w-up No observ ation record ed. [email or web address] [address], [place], [address], 04/18/2025 10:57:58 04/13/2004/13/2025 US, obste tric, follo w-up No observ ation record ed. [email or web address] [place] [address], [place], [address], 04/13/2025 14:33:43 04/13/2004/13/2025 US, obste tric, trans vagin al No observ ation record ed. [address], [place], [address], 04/13/2025 14:33:53 04/25/2004/25/2025 US, obste tric, follo w-up No observ ation record ed. [address] [facility] [address], [address], 04/26/2025 12:18:39 04/26/2004/25/2025 US, obste tric, follo w-up No observ ation record ed. [address] [facility] [address], [address], 05/16/2025 16:36:08 05/16/2005/16/2025 US, obste tric, follo w-up No observ ation record ed. GEOFFREY [address], [place], [address], 06/02/2025 12:50:00 05/16/2005/16/2025 US, obste tric, follo w-up No observ ation record ed. [email or web address] [place] [address], [place], [address], 05/16/2025 18:39:43 05/16/20 25 05/16/2025 US, obste tric, trans vagin al No observ ation record ed. [facility] [address], [place], [address], 05/16/2025 18:39:52 Result Notes None recorded. Problems Name Problem SNOMED Code Status Onset Date Resolution Date Notes Provider Name and Address Organization Details Recorded Time 34988707 Active 2024 ALAN Cai [facility] 14:57:49 Low-lying placenta 296838900 Active 2024 8mm from OS at 21 weeks, repeat in 4 weeks [facility] Amberly Arteaga [facility] 11:02:39 Problem Notes None recorded. Procedures Surgical History Date Name Laterality Status Provider Name and Address Organization Details Recorded Time 11/19/19 tonsillectomy and adenoidectomy completed ALAN Cai [facility] 01/09/2025 12:24:46 tonsilectomy/winston oids completed Rebekah Mancia [facility] 03/01/2025 16:34:53 Imaging Results None recorded. Procedure Notes None recorded. Medical Equipment None Reported. Allergies Allergen ID Allergen Name Allergen Category Reaction Reaction Severity Criticality Documentation Date Start Date Code Code System Note Provider Name and Address Organization Details Recorded Time naproxen medicatio n abdominal pain moderate Not available 01/09/2025 7258 RxNorm ALAN Cai [facility] 12:21:23 Medications Name [...] Address Organization Details Last Updated DateTime 05/16/2025 37227.02328 g 127/83 mm[Hg] Delphine Wilson [facility] 05/16/2025 17:52:12 Social History Question Answer Notes LastModified by Organizat ion Details LastModified Time Do You Have An Advance Directive? No Information n ot available 01/09/2025 Are You Blind Or Do You Have Difficulty Seeing? No [email or web address] Information not available 01/09/2025 What Is Your Level Of Caffeine Consumption? Moderate [email or web address] Information not available 01/09/2025 How Much Tobacco Do You Chew? None [email or web address] Information not available 01/09/2025 In The 14 Days Before Symptom Onset, Have You Had Close Contact With A Laboratory-confirme d COVID-19 While That Case Was Ill? No [email or web address] Information n ot available 01/09/2025 In The 14 Days Before Symptom Onset, Have You Had Close Contact With A Person Who Is Under Investigation For COVID-19 While That Person Was Ill? No [email or web address] Information not available 01/09/2025 Have You Been To An Area Known To Be High Risk For COVID-19? No [email or web address] Information not available 01/09/2025 Are You Deaf Or Do You Have Serious Difficulty Hearing? No Information not available 01/09/2025 What Type Of Diet Are You Following? REGULAR [email or web address] Information n ot available 01/09/2025 What Is The Highest Grade Or Level Of School You Have Completed Or The Highest Degree You Have Received? [id number] [email or web address] Information not available 01/09/2025 Are There Any Guns Present In Your Home? No [email or web address] Information not available 01/09/2025 Do You Use Protection During Sex? No [email or web address] Information not available 01/09/2025 Do You Use Your Seat Belt Or Car Seat Routinely? Yes [email or web address] Information not available 01/09/2025 Are You Sexually Active? Yes [email or web address] Information not available 03/01/2025 Do You Have Smoke And Carbon Monoxide Detectors In Your Home? Yes [email or web address] Information not available 01/09/2025 How Much Tobacco Do You Smoke? No [email or web address] Information not available 01/09/2025 Do You Use Sunscreen Routinely? No [email or web address] Information not available 01/09/2025 Have You Used IV Drugs? No [email or web address] Information not available 01/09/2025 Sex: Unknown Functional Status Question Answer Note LastModified by Organizat ion Details LastModified Time Do you use any illicit or recreational drugs? No Information not available 01/09/2025 What is your level of alcohol consumption? None [email or web address] Information not available 01/09/2025 Are you currently employed? Yes [email or web address] Information not available 03/01/2025 Are you able to walk independently without assistance or assistive devices? 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 Occasional [email or web address] Information not available 01/09/2025 Mental Status Question Answer Note LastModified by Organization D etails LastModified Time Do you feel stressed (tense, restless, nervous, or anxious, or unable to sleep at night)? [id number] [email or web address] Information not available 01/09/2025 Family History Relationship Description Onset Age of this Age Resolved Age Notes LastModified by Organization Details LastModified Time Maternal Grandfather Heart disease Not available 2024 12:25:30 Medical History Condition Response Allergies (Food, seasonal, environmental ) N Other N Drug/Latex Allergies/Reactions N Breast Cancer N Blood Transfusion N Dermatologic Disorders N [...] ICD10 Code Diagnosis IMO Codes Diagnosis Note [id number] DUARTE RAMÍREZ MD [place] [address],[place] [address] 04/27/2025 10:39:03 04/27/2025 12:08:50 Low-lying placenta 197922966 O44.40 70165003 - placental mass 1.7cm from os, with maternal vessel at edge of placenta- MFM follow up in 3 weeks- pelvic rest Gestation period, 33 weeks 89831915 Z3A.33 [id number] DUARTE RAMÍREZ MD [place] [address],[place] [address] 05/10/2025 10:07:47 05/10/2025 12:24:38 Low-lying placenta 829555969 O44.40 36334326 - placental mass 1.7cm from os, with maternal vessel at edge of placenta- MFM follow up in 3 weeks; will reschedule to office due to cost- pelvic rest Gestation period, 34 weeks 28330750 Z3A.34 [id number] [id number] DUARTE RAMÍREZ MD [place] [address],[place] [address] 05/16/2025 16:56:29 05/17/2025 08:24:49 Low-lying placenta 185038177 O44.40 O09.523 Z3A.35 606336 - placental mass 1.7cm from os, with maternal vessel at edge of placenta- MFM follow up in 3 weeks; will reschedule to office due to cost- pelvic rest [id number] DUARTE RAMÍREZ MD [place] [address] [address] 05/16/2025 16:57:18 05/17/2025 22:17:31 care status [id number] Z34.83 [id number] Health Concerns Section Related Observation LastModified by Organization Detai ls LastModified Time None Recorded Concern Status LastModified by Organization Details LastModified Time None Recorded Payers Encounter Date Sequence Insurance Name Policy Number Policy Torres Covered Member ID Torres Member ID Guarantor Name 05/16/2025 1 *SELF PAY* Juma hammad Renetta Notes Date Note Type Note Provider Name and Address Organization Details Recorded Time 05/16/2025 text/html Generic HPI TemplateReported by Patient DUARTE RAMÍREZ MD [address], [place], [address], [facility] 05/17/2025 17:42:09 OBGyn Episode Ob Episode Information Episode Created Date Number of Fetuses Patient Bloodtype Patient rh Status Prepregnancy Weight lbs Domestic Partner Domestic Partner Phone Father Name Electric Relay Tester Status 01/18/20 25 1 A Positive OPEN Fetus Data First Name Last Name Admitted to NICU Weight (g) Sex Living Outcome Pediatric Complications Fetus ID Race Codes Race Delivery Type [id number] Problems Problem Notes Problem Name Start Date End Date Resolution Snomed Code Not e Low-lying placenta 02/03/2025 070692120 8mm from OS at 21 weeks, repeat [...] Type Weight in lbs Pre/Post Dialysis Refused 174.52840258060 BP Diastolic BP Location Tested BP Systolic [...] Type Weight in lbs Pre/Post Dialysis Refused 184.812473632465 BP Diastolic BP Location Tested BP Systolic [...] Type Weight in lbs Pre/Post Dialysis Refused 194.340184982346 BP Diastolic BP Location Tested BP Systolic BP Type 75 L arm 129 sitting Fetus Heart Rate Present Fetus Movement A Yes Comments Good movement. Having some increased back pain, mostly with laying down. EFW 67%, placental mass now 1.9cm away from os, however there is a low flow vascularity seen between the placenta and the cervix. Will send to [facility] for further evaluation. Continue pelvic rest. GCT and labs today. RTC 2 weeks. Flowsheet Date 04/27/2025 Jay Score Blood Edema Fundus Height Fundus Units Glucose Ketones Leukocytes Nitrite Labor Signs Protein Cervic Dilation Cervic Effacement Cervic Station Type Weight in lbs Pre/Post Dialysis Refused Weight 199.909266105886 BP Diastolic BP Location Tested BP Systolic BP Type 72 L arm 118 sitting Fetus Heart Rate Present A 145 Fetus Movement A Yes Comments Flowsheet Date 05/10/2025 Jay Score Blood Edema Fundus Height Fundus Units Glucose Ketones Leukocytes Nitrite Labor Signs Protein Cervic Dilation Cervic Effacement Cervic Station Type Weight in lbs Pre/Post Dialysis Refused 200.684342965279 BP Diastolic BP Location Tested BP Systolic [...] Type Weight in lbs Pre/Post Dialysis Refused 198.028019277662 BP Diastolic BP Location Tested BP Systolic [...] Weight in lbs Pre/Post Dialysis Refused Weight 202.825329048803 BP Diastolic BP Location Tested BP Systolic [...] Weight in lbs Pre/Post Dialysis Refused Weight 202.968475276150 BP Diastolic BP Location Tested BP Systolic [...] Weight in lbs Pre/Post Dialysis Refused Weight 205.220635581611 BP Diastolic BP Location Tested BP Systolic [...] Weight in lbs Pre/Post Dialysis Refused Weight 204.002703482016 BP Diastolic BP Location Tested BP Systolic [...]
--- OUTSIDE RECORDS SUMMARY | 2025-06-14 19:54 | XMS_ITS | Continuity of Care Document ---
Author Organization [facility] Address [address] [place] [address] Assessment No assessment recorded. Plan of Treatment [...] Not Available [facility] [address], [place], [address], 02/11/2025 00:34:26 02/12/20 25 02/11/2025 [UNIT Y] ANEUP LOIDY NIPT 22Q11.2 microdeletio n LOW RISK <1 in 10,000 normal Not Available [facility] [address], [place], [address], 02/11/2025 00:34:26 02/12/20 25 02/11/2025 [UNIT Y] ANEUP LOIDY NIPT sex chromosome aneuploidy NOT DETECT ED normal Not Available [facility] [address], [place], [address], 02/11/2025 00:34:26 02/12/20 25 02/11/2025 [UNIT Y] ANEUP LOIDY NIPT monosomy X LOW RISK <1 in 10,000 normal Not Available [facility] [address], [place], [address], 02/11/2025 00:34:26 02/12/20 25 02/11/2025 [UNIT Y] ANEUP LOIDY NIPT trisomy 13 LOW RISK <1 in 10,000 normal Not Available [facility] [address], [place], [address], 02/11/2025 00:34:26 02/12/20 25 02/11/2025 [UNIT Y] ANEUP LOIDY NIPT trisomy 18 LOW RISK <1 in 10,000 normal Not Available [facility] [address], [place], [address], 02/11/2025 00:34:26 02/12/20 25 02/11/2025 [UNIT Y] ANEUP LOIDY NIPT trisomy 21 LOW RISK <1 in 10,000 normal Not Available [facility] [address], [place], [address], 02/11/2025 00:34:26 02/12/20 25 02/11/2025 [UNIT Y] ANEUP LOIDY NIPT sex FEMALE normal Not Available [facility] [address], [place], [address], 02/11/2025 00:34:26 02/12/20 25 02/11/2025 [UNIT Y] ANEUP LOIDY NIPT gestation SINGLE TON normal Not Available [facility] [address], [place], [address], 02/11/2025 00:34:26 02/12/20 25 02/11/2025 [UNIT Y] ANEUP LOIDY NIPT for detailed report, see pdf See PDF normal Not Available [facility] [address], [place], [address], 02/11/2025 00:34:26 02/19/20 25 02/18/2025 [UNIT Y] KECIA DAYANARA DIAMANTEJaciel Molina sickle cell disease/beta -thalassemia /hemoglobino pathies carrier screen NEGATI VE normal Not Available [facility] [address], [place], [address], 02/18/2025 01:11:43 02/19/20 25 02/18/2025 [UNIT Y] KECIA BOBBYJaciel Molina alpha-thalas semia carrier screen NEGATI VE normal Not Available [facility] [address], [place], [address], 02/18/2025 01:11:43 02/19/20 25 02/18/2025 [UNIT Y] KECIA DAYANARA DIAMANTEJaciel Molina cystic fibrosis carrier screen NEGATI VE normal Not Available [facility] [address], [place], [address], 02/18/2025 01:11:43 02/19/20 25 02/18/2025 [UNIT Y] KECIA DAYANARA DIAMANTEJaciel Molina spinal muscular atrophy carrier screen NEGATI VE 2 SMN1 copies , SNP not presen t normal Not Available [facility] [address], [place], [address], 02/18/2025 01:11:43 02/19/20 25 02/18/2025 [UNIT Y] KECIA DAYANARA Molina for detailed report, see pdf See PDF normal Not Available [facility] [address], [place], [address], 02/18/2025 01:11:43 02/04/2002/03/2025 HIV 1/2 ANTIG EN/AN TIBOD Y, REFLE X CONFI RMATI ON HIV antigen/anti body Nonrea ctive nonrea ctive HIV-1 antig en and HIV-1 /HIV- 2 antib odies were not detec marvin. No labor atory evide nce of HIV infec tion. Not Available [facility] (Lab) [address], [place], [address], 02/04/2025 14:19:01 02/04/2002/03/2025 HEPAT ITIS B SURFA CE ANTIG EN hepatitis B surface antigen Non-re active non-re active This assay was perfo rmed using [employer] ratio n reage nts and test kits. Value s obtai amy with other assay metho ds or kits canno t be used inter cyr eably . Not Available [facility] (Lab) [address], [place], [address], 02/04/2025 14:19:02 02/04/2002/03/2025 HEPAT ITIS C ANTIB MANAN SCREE N, REFLE X TO CONFI RMATI ON hepatitis C antibody Non-re active non-re active Antib odies to HCV Not Detec marvin, does not exclu de the possi bilit y of expos ure to HCV. Not Available [facility] (Lab) [address], [place], [address], 02/04/2025 14:19:02 02/04/2002/03/2025 RUBEL LA IGG ANTIB MANAN, QUANT rubella antibodies, IgG Reacti ve reacti ve Not Available [facility] (Lab) [address], [place], [address], 02/04/2025 14:19:03 02/04/2002/03/2025 RUBEL LA IGG ANTIB MANAN, QUANT rubella antibodies, IgG quant 11.5 IU/mL >=10 Non-r eacti ve (Non- Immun e) <10 IU/mL React chastity (Immu ne) > or = 10 IU/mL Not Available [facility] (Lab) [address], [place], [address], 02/04/2025 14:19:03 02/04/2002/03/2025 HEMOG LOBIN A1C hemoglobin [...] >8.0% Actio n sugge sted Not Available [facility] (Lab) [address], [place], [address], 02/04/2025 14:19:03 02/04/2002/03/2025 TYPE/ RH/SC REEN ABO/Rh type A POS Not Available [facility] (Lab) [address], [place], [address], 02/04/2025 14:19:04 02/04/20 25 02/03/2025 TYPE/ RH/SC REEN antibody screen NEG Not Available [facility] (Lab) [address], [place], [address], 02/04/2025 14:19:04 02/04/20 25 02/03/2025 TYPE/ RH/SC REEN exp date 2024 23:59 Not Available [facility] (Lab) [address], [place], [address], 02/04/2025 14:19:04 02/04/20 25 02/03/2025 RPR SCREE N, REFLE X TITER /CONF IRMAT ION RPR qualitative Nonrea ctive nonrea ctive Not Available [facility] (Lab) [address], [place], [address], 02/04/2025 14:19:04 04/14/20 25 04/14/2025 HEMOG LOBIN (HGB) HGB 11.0 g/dL (based on docume nted legal sex) 11.6-1 5.4 low Not Available [facility] (Lab) [address], [place], [address], 04/15/2025 12:46:15 04/14/2004/14/2025 HEMAT OCRIT (HCT) HCT 35.7 % (based on docume nted legal sex) 34.0-4 5.0 Not Available [facility] (Lab) [address], [place], [address], 04/15/2025 12:46:16 04/14/2004/14/2025 GTT - GESTA SHASHANK L SCREJaciel N, ACOG OB glucose, 1 hour screen 99 mg/dL 70-135 Not Available [facility] (Lab) [address], [place], [address], 04/15/2025 12:46:16 04/14/2004/14/2025 HIV 1/2 ANTIG EN/AN TIBOD Y, REFLE X CONFI RMATI ON HIV antigen/anti body Nonrea ctive nonrea ctive HIV-1 antig en and HIV-1 /HIV- 2 antib odies were not detec marvin. No labor atory evide nce of HIV infec tion. Not Available [facility] (Lab) [address], [place], [address], 04/15/2025 12:46:17 04/14/2004/14/2025 RPR SCREE N, REFLE X TITER /CONF IRMAT ION RPR qualitative Nonrea ctive nonrea ctive Not Available [facility] (Lab) [address], [place], [address], 04/15/2025 12:46:17 02/04/2002/03/2025 US, obste tric, follo w-up No observ ation record ed. [facility] [address], [place], [address], 02/03/2025 17:50:45 0702/03/2025 US, obste tric, trans vagin al No observ ation record ed. [facility] [address], [place], [address], 02/03/2025 17:50:54 02/04/2002/03/2025 US, obste tric, follo w-up No observ ation record ed. [email or web address] [address] [address], [place], [address], 02/17/2025 09:47:46 03/01/2003/01/2025 US, obste tric, trans vagin al No observ ation record ed. [facility] [address], [place], [address], 03/01/2025 18:51:07 03/01/2003/01/2025 US, obste tric, follo w-up No observ ation record ed. [facility] [address], [place], [address], 03/01/2025 18:51:17 03/01/2003/01/2025 US, obste tric, trans vagin al No observ ation record ed. [email or web address] [address], [place], [address], 03/04/2025 11:18:02 04/13/2004/13/2025 US, obste tric, follo w-up No observ ation record ed. [email or web address] [address], [place], [address], 04/18/2025 10:57:58 04/13/2004/13/2025 US, obste tric, follo w-up No observ ation record ed. [address], [place], [address], 04/13/2025 14:33:43 04/13/2004/13/2025 US, obste tric, trans vagin al No observ ation record ed. [email or web address] [place] [address], [place], [address], 04/13/2025 14:33:53 04/25/2004/25/2025 US, obste tric, follo w-up No observ ation record ed. [address] [facility] [address], [address], 04/26/2025 12:18:39 04/26/2004/25/2025 US, obste tric, follo w-up No observ ation record ed. [address], [address], 05/16/2025 16:36:08 05/16/2005/16/2025 US, obste tric, follo w-up No observ ation record ed. GEOFFREY Choie [address], [place], [address], 06/02/2025 12:50:00 05/16/2005/16/2025 US, obste tric, follo w-up No observ ation record ed. [facility] [address], [place], [address], 05/16/2025 18:39:43 05/16/2005/16/2025 US, obste tric, trans vagin al No observ ation record ed. [facility] [address], [place], [address], 05/16/2025 18:39:52 Result Notes None recorded. Problems Name Problem SNOMED Code Status Onset Date Resolution Date Notes Provider Name and Address Organization Details Recorded Time 95452273 Active 2024 [facility] 14:57:49 Low-lying placenta 701483480 Active 2024 8mm from OS at 21 weeks, repeat in 4 weeks faxed referral SSAndres Daugherty 04/18 [facility] 11:02:39 Problem Notes None recorded. Procedures Surgical History Date Name Laterality Status Provider Name and Address Organization Details Recorded Time 11/19/19 18 tonsillectomy and adenoidectomy completed ALAN Cai [facility] 01/09/2025 12:24:46 tonsilectomy/winston oids completed Rebekah Mancia [facility] 03/01/2025 16:34:53 Imaging Results None recorded. Procedure Notes None recorded. Medical Equipment None Reported. Allergies Allergen ID Allergen Name Allergen Category Reaction Reaction Severity Criticality Documentation Date Start Date Code Code System Note Provider Name and Address Organization Details Recorded Time naproxen medicatio n abdominal pain moderate Not available 01/09/2025 7258 RxNorm [facility] 12:21:23 Medications Name Sig Start Date [...] and Address Organization Details Last Updated DateTime 04/27/2025 165.1 cm 33.1 kg/m2 50362.88 g 118/72 mm[Hg] Delphine Wilson [facility] 04/27/2025 10:49:45 Social History Question Answer Notes LastModified by Organizat ion Details LastModified Time Do You Have An Advance Directive? No [email or web address] Information n ot available 01/09/2025 Are You Blind Or Do You Have Difficulty Seeing? No [email or web address] Information not available 01/09/2025 What Is Your Level Of Caffeine Consumption? Moderate [email or web address] Information not available 01/09/2025 How Much Tobacco Do You Chew? None [email or web address] Information not available 01/09/2025 In The 14 Days Before Symptom Onset, Have You Had Close Contact With A Laboratory-confirme d COVID-19 While That Case Was Ill? No Information n ot available 01/09/2025 In The 14 Days Before Symptom Onset, Have You Had Close Contact With A Person Who Is Under Investigation For COVID-19 While That Person Was Ill? No [email or web address] Information not available 01/09/2025 Have You Been To An Area Known To Be High Risk For COVID-19? No [email or web address] Information not available 01/09/2025 Are You Deaf Or Do You Have Serious Difficulty Hearing? No [email or web address] Information not available 01/09/2025 What Type Of Diet Are You Following? REGULAR [email or web address] Information n ot available 01/09/2025 What Is The Highest Grade Or Level Of School You Have Completed Or The Highest Degree You Have Received? [id number] Information not available 01/09/2025 Are There Any Guns Present In Your Home? No [email or web address] Information not available 01/09/2025 Do You Use Protection During Sex? No [email or web address] Information not available 01/09/2025 Do You Use Your Seat Belt Or Car Seat Routinely? Yes Information not available 01/09/2025 Are You Sexually Active? Yes [email or web address] Information not available 03/01/2025 Do You Have Smoke And Carbon Monoxide Detectors In Your Home? Yes [email or web address] Information not available 01/09/2025 How Much Tobacco Do You Smoke? No [email or web address] Information not available 01/09/2025 Do You Use Sunscreen Routinely? No Information not available 01/09/2025 Have You Used IV Drugs? No [email or web address] Information not available 01/09/2025 Sex: Unknown Functional Status Question Answer Note LastModified by Organizat ion Details LastModified Time Do you use any illicit or recreational drugs? No [email or web address] Information not available 01/09/2025 What is your level of alcohol consumption? None [email or web address] Information not available 01/09/2025 Are you currently employed? Yes [email or web address] Information not available 03/01/2025 Are you able to walk independently without assistance or assistive devices? 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 Occasional [email or web address] Information not available 01/09/2025 Mental Status Question Answer Note LastModified by Organization D etails LastModified Time Do you feel stressed (tense, restless, nervous, or anxious, or unable to sleep at night)? [id number] [email or web address] Information not available 01/09/2025 Family History Relationship Description Onset Age of this Age Resolved Age Notes LastModified by Organization Details LastModified Time Maternal Grandfather Heart disease [email or web address] Not available 2024 12:25:30 Medical History Condition [...] ICD10 Code Diagnosis IMO Codes Diagnosis Note [id number] DUARTE RAMÍREZ MD [facility] [address] [address] 04/13/2025 12:22:16 04/13/2025 13:36:03 Low-lying placenta 165228123 O44.40 Z3A.31 71826207 - repeat US in 4 weeks- pelvic rest [id number] DUARTE RAMÍREZ MD [facility] [address] [address] 04/14/2025 10:47:19 04/14/2025 12:03:17 Low-lying placenta 374550246 O44.40 44779906 - placental mass 1.9cm from os, however low flow vascularit y seen between placenta and cervix- MFM consult- pelvic rest Gestation period, 31 weeks 15393443 Z3A.31 3054001 -continue PNV [id number] DUARTE RAMÍREZ MD [facility] [address] [address] 04/27/2025 10:39:03 04/27/2025 12:08:50 Low-lying placenta 444171926 O44.40 24111985 - placental mass 1.7cm from os, with maternal vessel at edge of placenta- MFM follow up in 3 weeks- pelvic rest Gestation period, 33 weeks 58431830 Z3A.33 [id number] Health Concerns Section Related Observation LastModified by Organization Detai ls LastModified Time None Recorded Concern Status LastModified by Organization Details LastModified Time None Recorded Payers Encounter Date Sequence Insurance Name Policy Number Policy Torres Covered Member ID Torres Member ID Guarantor Name 04/27/2025 1 *SELF PAY* Juma Jackson Notes Date Note Type Note Provider Name and Address Organization Details Recorded Time 04/27/2025 text/html Generic HPI TemplateReported by Patient DUARTE RAMÍREZ MD [address], [place], [address], [facility] 04/27/2025 12:08:25 OBGyn Episode Ob Episode Information Episode Created Date Number of Fetuses Patient Bloodtype Patient rh Status Prepregnancy Weight lbs Domestic Partner Domestic Partner Phone Father Name Carbonator Status 01/18/20 25 1 A Positive OPEN Fetus Data First Name Last Name Admitted to NICU Weight (g) Sex Living Outcome Pediatric Complications Fetus ID Race Codes Race Delivery Type [id number] Problems Problem Notes Problem Name Start Date End Date Resolution Snomed Code Not e Low-lying placenta 02/03/2025 575985816 8mm from OS at 21 weeks, repeat [...] Type Weight in lbs Pre/Post Dialysis Refused 174.58897894261 BP Diastolic BP Location Tested BP Systolic [...] Type Weight in lbs Pre/Post Dialysis Refused 184.407685289626 BP Diastolic BP Location Tested BP Systolic [...] Type Weight in lbs Pre/Post Dialysis Refused 194.349397479800 BP Diastolic BP Location Tested BP Systolic BP Type 75 L arm 129 sitting Fetus Heart Rate Present Fetus Movement A Yes Comments Good movement. Having some increased back pain, mostly with laying down. EFW 67%, placental mass now 1.9cm away from os, however there is a low flow vascularity seen between the placenta and the cervix. Will send to [facility] for further evaluation. Continue pelvic rest. GCT and labs today. RTC 2 weeks. Flowsheet Date 04/27/2025 Jay Score Blood Edema Fundus Height Fundus Units Glucose Ketones Leukocytes Nitrite Labor Signs Protein Cervic Dilation Cervic Effacement Cervic Station Type Weight in lbs Pre/Post Dialysis Refused Weight 199.437086068250 BP Diastolic BP Location Tested BP Systolic BP Type 72 L arm 118 sitting Fetus Heart Rate Present A 145 Fetus Movement A Yes Comments Flowsheet Date 05/10/2025 Jay Score Blood Edema Fundus Height Fundus Units Glucose Ketones Leukocytes Nitrite Labor Signs Protein Cervic Dilation Cervic Effacement Cervic Station Type Weight in lbs Pre/Post Dialysis Refused 200.776220015230 BP Diastolic BP Location Tested BP Systolic [...] Type Weight in lbs Pre/Post Dialysis Refused 198.164732634653 BP Diastolic BP Location Tested BP Systolic [...] Weight in lbs Pre/Post Dialysis Refused Weight 202.988853754542 BP Diastolic BP Location Tested BP Systolic [...] Weight in lbs Pre/Post Dialysis Refused Weight 202.916674015426 BP Diastolic BP Location Tested BP Systolic [...] Weight in lbs Pre/Post Dialysis Refused Weight 205.357648089715 BP Diastolic BP Location Tested BP Systolic [...] Weight in lbs Pre/Post Dialysis Refused Weight 204.687205192192 BP Diastolic BP Location Tested BP Systolic [...]
--- OUTSIDE RECORDS SUMMARY | 2025-06-14 19:54 | XMS_ITS | Data Portability ---
Author Organization [facility] Address [address] [place] [address] [place] [address] Assessment No assessment recorded. Plan of Treatment Reminders Order Date Submit Date Provider Last Modified By Organization Details Last Modified Time Details Appointments INDUCTION 2024 05:00A Andres RAMÍREZ MD Not available Not available Not available Lab None recorded. Referral None recorded. Procedures None recorded. Surgeries None recorded. Imaging US, obstetric , follow-up 2024 025 [facility], [facility] [address], [place], [address], 05/18/2025 15:56:18 US, obstetric , transvagi nal 2024 025 [facility], [facility] [address], [address], [place], [address], 05/18/2025 15:56:13 Medication Orders None recorded. Patient TargetsNo targets recorded. Patient InstructionsNo instructions recorded. Reason for Referral None Reported. Results Created Date Observation Date Name Description Value Unit Range Abnormal Flag Note LastModifiedBy Organization Detail LastModifiedTime 05/24/2005/24/2025 CULTU RE: GROUP B STREP SCREE N, [...] Final resul t Abnor mal: No Resul ting Lab: [facility] [address] [facility] [address] Tel: CULTU RE ----- ----- ----- --- No Group B strep isola marvin at 2 days (devin ctive broth enhan cemen t) Not Available [facility] (Lab) [address], [place], [address], 05/27/2025 15:26:08 04/25/2004/25/2025 US, obste tric, follo w-up No observ ation record ed. [address] [facility] [address], [address], 04/26/2025 12:18:39 04/26/2004/25/2025 US, obste tric, follo w-up No observ ation record ed. [address], [address], 05/16/2025 16:36:08 05/16/2005/16/2025 US, obste tric, follo w-up No observ ation record ed. GEOFFREY Carson [address], [place], [address], 06/02/2025 12:50:00 05/16/2005/16/2025 US, obste tric, follo w-up No observ ation record ed. [facility] [address], [place], [address], 05/16/2025 18:39:43 05/16/20 25 05/16/2025 US, obste tric, trans vagin al No observ ation record ed. [facility] [address], [place], [address], 05/16/2025 18:39:52 Result Notes None recorded. Problems Name Problem SNOMED Code Status Onset Date Resolution Date Notes Provider Name and Address Organization Details Recorded Time 40043107 Active [address] [facility] 14:57:49 Low-lying placenta 026035221 Active 2024 8mm from OS at 21 weeks, repeat in 4 weeks faxed referral [facility] TACHO Daugherty 04/[address] [facility] 11:02:39 Problem Notes None recorded. Procedures Surgical History Date Name Laterality Status Provider Name and Address Organization Details Recorded Time 11/19/19 tonsillectomy and adenoidectomy completed ALAN Cai [facility] 01/09/2025 12:24:46 tonsilectomy/winston oids completed Rebekah Mancia [facility] 03/01/2025 16:34:53 Imaging Results None recorded. Procedure Notes None recorded. Medical Equipment None Reported. Allergies Allergen ID Allergen Name Allergen Category Reaction Reaction Severity Criticality Documentation Date Start Date Code Code System Note Provider Name and Address Organization Details Recorded Time naproxen medicatio n abdominal pain moderate Not available 01/09/2025 7258 RxNorm ALAN C[address] [facility] 12:21:23 Medications Name Sig Start Date [...] Address Organization Details Last Updated DateTime 05/16/2025 00834.94369 g 127/83 mm[Hg] Delphinebell Hilllily [facility] 05/16/2025 17:52:12 Date Recorded Body height Body mass index (BMI) Body weight Systolic And Diastolic Provider Name and Address Organization Details Last Updated DateTime 05/24/2025 165.1 cm 33.6 kg/m2 25051.66 g 110/70 mm[Hg] Delphine [facility] 05/24/2025 16:03:22 Date Recorded Body height Body mass index (BMI) Body weight Systolic And Diastolic Provider Name and Address Organization Details Last Updated DateTime 05/30/2025 165.1 cm 33.6 kg/m2 93224.66 g 131/79 mm[Hg] Leslie Diallo [facility] 05/30/2025 09:46:07 Date Recorded Body height Body mass index (BMI) Body weight Systolic And Diastolic Provider Name and Address Organization Details Last Updated DateTime 06/06/2025 165.1 cm 34.1 kg/m2 65140.44 g 133/84 mm[Hg] [facility] 06/06/2025 12:32:30 Date Recorded Body height Body mass index (BMI) Body weight Systolic And Diastolic Systolic And Diastolic Provider Name and Address Organization Details Last Updated DateTime 06/13/2025 165.1 cm 33.9 kg/m2 72650.84 g 147/87 mm[Hg] 126/82 mm[facility]Hg] [facility] Social History Question Answer Notes LastModified by Organizat ion Details LastModified Time Do You Have An Advance Directive? No Information n ot available 01/09/2025 Are You Blind Or Do You Have Difficulty Seeing? No [email or web address] Information not available 01/09/2025 What Is Your Level Of Caffeine Consumption? Moderate Information not available 01/09/2025 How Much Tobacco Do You Chew? None [email or web address] Information not available 01/09/2025 In The 14 Days Before Symptom Onset, Have You Had Close Contact With A Laboratory-confirme d COVID-19 While That Case Was Ill? No [email or web address] Information n ot available 01/09/2025 In The 14 Days Before Symptom Onset, Have You Had Close Contact With A Person Who Is Under Investigation For COVID-19 While That Person Was Ill? No [email or web address] Information not available 01/09/2025 Have You Been To An Area Known To Be High Risk For COVID-19? No Information not available 01/09/2025 Are You Deaf Or Do You Have Serious Difficulty Hearing? No [email or web address] Information not available 01/09/2025 What Type Of Diet Are You Following? REGULAR [email or web address] Information n ot available 01/09/2025 What Is The Highest Grade Or Level Of School You Have Completed Or The Highest Degree You Have Received? CG13381-7 [email or web address] Information not available 01/09/2025 Are There Any Guns Present In Your Home? No [email or web address] Information not available 01/09/2025 Do You Use Protection During Sex? No [email or web address] Information not available 01/09/2025 Do You Use Your Seat Belt Or Car Seat Routinely? Yes [email or web address] Information not available 01/09/2025 Are You Sexually Active? Yes [email or web address] Information not available 03/01/2025 Do You Have Smoke And Carbon Monoxide Detectors In Your Home? Yes [email or web address] Information not available 01/09/2025 How Much Tobacco Do You Smoke? No [email or web address] Information not available 01/09/2025 Do You Use Sunscreen Routinely? No [email or web address] Information not available 01/09/2025 Have You Used IV Drugs? No [email or web address] Information not available 01/09/2025 Sex: Unknown Functional Status Question Answer Note LastModified by Organizat ion Details LastModified Time Do you use any illicit or recreational drugs? No [email or web address] Information not available 01/09/2025 What is your level of alcohol consumption? None [email or web address] Information not available 01/09/2025 Are you currently employed? Yes [email or web address] Information not available 03/01/2025 Are you able to walk independently without assistance or assistive devices? 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 Occasional [email or web address] Information not available 01/09/2025 Mental Status Question Answer Note LastModified by Organization D etails LastModified Time Do you feel stressed (tense, restless, nervous, or anxious, or unable to sleep at night)? [id number] [email or web address] Information not available 01/09/2025 Family History Relationship Description Onset Age of this Age Resolved Age Notes LastModified by Organization Details LastModified Time Maternal Grandfather Heart disease [email or web address] Not available 2024 12:25:30 Medical History Condition [...] ICD10 Code Diagnosis IMO Codes Diagnosis Note [id number] DUARTE RAMÍREZ MD [place] [address] [address] 01/09/2025 12:21:44 01/09/2025 13:44:30 test positive 090909549 Z32.01 555109 1. Exam today within normal limits.2. Ultrasound today confirms GA and viability. EDC 06/15/25 by outside US3. GC/Amalia a testing done: will f/u as indicated. 4. ACOG guidelines and plan of care for reviewed with patient. All questions answered.5 . Return to office in 3 weeks for new OB visit6. New OB labs ordered7. Genetic screening: desires. screening 2437 75780 Z36.9 5221354 Genetic in vestigation procedure 13953029 Z31.430 [id number] MD Yoanna [place] [address],[place] [address] 01/12/2025 11:00:52 01/12/2025 12:41:59 screening for malformation 994239038 Z36.3 Z3A.18 9510463828 [id number] MD Yoanna [place] [address],[place] [address] 02/03/2025 13:43:59 02/03/2025 14:45:51 anatomy study 856613818 Z36.2 O44.40 Z3A.21 0582156122 [id number] MD [place] [address],[place] [address] 02/03/2025 13:45:26 02/03/2025 15:07:45 Low-lying placenta 779076945 O44.40 536393 Gestation period, 21 weeks 64982673 Z3A.21 9770321 [id number] DUARTE RAMÍREZ MD [place] [address],[place] [address] 03/01/2025 15:09:54 03/01/2025 16:31:15 Low-lying placenta 791088348 O44.40 Z3A.24 573519 [id number] MD Yoanna P[place] [address],[place] [address] 03/01/2025 15:12:11 03/01/2025 16:58:26 Low-lying placenta 061964453 O44.40 35079202 - repeat US in 4 weeks- pelvic rest Gestation period, 24 weeks 769278935 Z3A.24 4132308 [id number] MD Yoanna [place] [address],[place] [address] 04/13/2025 12:22:16 04/13/2025 13:36:03 Low-lying placenta 252475525 O44.40 Z3A.31 51568819 - repeat US in 4 weeks- pelvic rest [id number] MD Yoanna [place] [address],[place] [address] 04/14/2025 10:47:19 04/14/2025 12:03:17 Low-lying placenta 058311523 O44.40 77743536 - placental mass 1.9cm from os, however low flow vascularit y seen between placenta and cervix- MFM consult- pelvic rest Gestation period, 31 weeks 27140548 Z3A.31 7775772 -continue PNV [id number] MD Yoanna [place] [address],[place] [address] 04/27/2025 10:39:03 04/27/2025 12:08:50 Low-lying placenta 011512238 O44.40 55497452 - placental mass 1.7cm from os, with maternal vessel at edge of placenta- MFM follow up in 3 weeks- pelvic rest Gestation period, 33 weeks 34776386 Z3A.33 4450010 [id number] DUARTE RAMÍREZ MD [place] [address],[place] [address] 05/10/2025 10:07:47 05/10/2025 12:24:38 Low-lying placenta 432912243 O44.40 24404739 - placental mass 1.7cm from os, with maternal vessel at edge of placenta- MFM follow up in 3 weeks; will reschedule to office due to cost- pelvic rest Gestation period, 34 weeks 86132324 Z3A.34 3005565 [id number] DUARTE RAMÍREZ MD [place] [address],[place] [address] 05/16/2025 16:56:29 05/17/2025 08:24:49 Low-lying placenta 589144691 O44.40 O09.523 Z3A.35 551516 - placental mass 1.7cm from os, with maternal vessel at edge of placenta- MFM follow up in 3 weeks; will reschedule to office due to cost- pelvic rest [id number] DUARTE RAMÍREZ MD [place] [address],[place] [address] 05/16/2025 16:57:18 05/17/2025 22:17:31 care status 898766286 Z34.83 78639074 [id number] DUARTE RAMÍREZ MD [place] [address],[place] [address] 05/24/2025 15:57:07 05/24/2025 16:25:52 care status 537664221 Z34.83 60586878 [id number] DUARTE RAMÍREZ MD [place] [address],[place] [address] 05/30/2025 09:37:18 05/30/2025 10:21:45 care status 631018749 Z34.83 61059343 [id number] DUARTE RAMÍREZ MD [place] [address],[place] [address] 06/06/2025 12:24:53 06/06/2025 12:50:01 care status 155535616 Z34.83 29852984 [id number] DUARTE RAMÍREZ MD [place] [address],[place] [address] 06/13/2025 09:56:07 06/13/2025 10:30:05 care status 688024813 Z34.83 [id number] Health Concerns Section Related Observation LastModified by Organization Detai ls LastModified Time None Recorded Concern Status LastModified by Organization Details LastModified Time None Recorded Advance Directives Directive N: Payers Insurance Date Sequence Insurance Name Policy Number Policy Torres Covered Member ID Torres Member ID Guarantor Name 12/22/2024 1 *SELF PAY* Juma Jackson 04/13/2025 PAYMENT PLAN Zoya Jackson 04/13/2025 PAYMENT PLAN Zoya Jackson 04/13/2025 PAYMENT PLAN Zoya Jackson Notes Date Note Type Note Provider Name and Address Organization Details Recorded Time 05/16/2025 text/html Generic HPI TemplateReported by Patient MD [address], [place], [address], [facility] 05/17/2025 17:42:09 05/24/2025 text/html Generic HPI TemplateReported by Patient DUARTE RAMÍREZ MD [address], [place], [address], [facility] 05/24/2025 16:24:35 05/30/2025 text/html Generic HPI TemplateReported by Patient DUARTE RAMÍREZ MD [address], [place], [address], [facility] 05/30/2025 10:21:11 06/06/2025 text/html Generic HPI TemplateReported by Patient DUARTE RAMÍREZ MD [address], [place], [address], [facility] 06/06/2025 12:47:32 06/13/2025 text/html Generic HPI TemplateReported by Patient DUARTE RAMÍREZ MD [address], [place], [address], [facility] 06/13/2025 10:28:10 OBGyn Episode Ob Episode Information Episode Created Date Number of Fetuses Patient Bloodtype Patient rh Status Prepregnancy Weight lbs Domestic Partner Domestic Partner Phone Father Name Hand Frame Surgical Elastic Knitter Status 01/18/20 25 1 A Positive OPEN Fetus Data First Name Last Name Admitted to NICU Weight (g) Sex Living Outcome Pediatric Complications Fetus ID Race Codes Race Delivery Type [id number] Problems Problem Notes Problem Name Start Date End Date Resolution Snomed Code Not e Low-lying placenta 02/03/2025 244087531 8mm from OS at 21 weeks, repeat [...] Type Weight in lbs Pre/Post Dialysis Refused 174.65617882559 BP Diastolic BP Location Tested BP Systolic [...] Type Weight in lbs Pre/Post Dialysis Refused 184.770340092017 BP Diastolic BP Location Tested BP Systolic [...] Type Weight in lbs Pre/Post Dialysis Refused 194.684022396403 BP Diastolic BP Location Tested BP Systolic BP Type 75 L arm 129 sitting Fetus Heart Rate Present Fetus Movement A Yes Comments Good movement. Having some increased back pain, mostly with laying down. EFW 67%, placental mass now 1.9cm away from os, however there is a low flow vascularity seen between the placenta and the cervix. Will send to [facility] for further evaluation. Continue pelvic rest. GCT and labs today. RTC 2 weeks. Flowsheet Date 04/27/2025 Jay Score Blood Edema Fundus Height Fundus Units Glucose Ketones Leukocytes Nitrite Labor Signs Protein Cervic Dilation Cervic Effacement Cervic Station Type Weight in lbs Pre/Post Dialysis Refused Weight 199.048190514624 BP Diastolic BP Location Tested BP Systolic BP Type 72 L arm 118 sitting Fetus Heart Rate Present A 145 Fetus Movement A Yes Comments Flowsheet Date 05/10/2025 Jay Score Blood Edema Fundus Height Fundus Units Glucose Ketones Leukocytes Nitrite Labor Signs Protein Cervic Dilation Cervic Effacement Cervic Station Type Weight in lbs Pre/Post Dialysis Refused 200.654762690304 BP Diastolic BP Location Tested BP Systolic [...] Type Weight in lbs Pre/Post Dialysis Refused 198.073114053925 BP Diastolic BP Location Tested BP Systolic [...] Weight in lbs Pre/Post Dialysis Refused Weight 202.326877461422 BP Diastolic BP Location Tested BP Systolic [...] Weight in lbs Pre/Post Dialysis Refused Weight 202.205188481985 BP Diastolic BP Location Tested BP Systolic [...] Weight in lbs Pre/Post Dialysis Refused Weight 205.563564932473 BP Diastolic BP Location Tested BP Systolic [...] Weight in lbs Pre/Post Dialysis Refused Weight 204.665958263097 BP Diastolic BP Location Tested BP Systolic [...] Method Maternal HG B and HCT Levels Ob Episode Information Episode Created Date Number of Fetuses Patient Bloodtype Patient rh Status Prepregnancy Weight lbs Domestic Partner Domestic Partner Phone Father Name Hand Frame Surgical Elastic Knitter Status 01/10/20 25 1 CLOSED Fetus Data First Name Last Name Admitted to NICU Weight (g) Sex Living Outcome Pediatric Complications Fetus ID Race Codes Race Delivery Type 2721.55 2 M Full Term [id number] Vaginal Delivery Suhas Calculation Initial Suhas Date Initial Exam Date Initial Exam Provider Initial Ultrasound Date Last Menstrual Period Date Ultra Sound Weeks Gestation 0 Eighteen To Twenty Week Suhas Update Ultra Sound Date Fundal Height At Umbil Quickening Date Ultra Sound Latest Weeks Gestation Final Suhas Confirmed By Final Suhas Confirmed Date Final Suhas Date Ultra Sound Latest Days Gestation 0 0 Menstrual History Last Menstrual Date Menses Monthly On Bcp Conception Prior Menses Frequency Hcg Plus Date Menarche Onset Age Delivery Information Delivery Date Delivery Type Labor Anesthesia Weeks Gestation Incision Type Labor Labor Length Hrs Delivered By Post Complications Tubal Sterilization Discharge Date Comments 2 39 Discharge Information Feeding Method Contraceptive Method Maternal HG B and HCT Levels Ob Episode Information Episode Created Date Number of Fetuses Patient Bloodtype Patient rh Status Prepregnancy Weight lbs Domestic Partner Domestic Partner Phone Father Name Hand Frame Surgical Elastic Knitter Status 01/10/20 25 1 CLOSED Fetus Data First Name Last Name Admitted to NICU Weight (g) Sex Living Outcome Pediatric Complications Fetus ID Race Codes Race Delivery Type , Induced [id number] Suhas Calculation Initial Suhas Date Initial Exam Date Initial Exam Provider Initial Ultrasound Date Last Menstrual Period Date Ultra Sound Weeks Gestation 0 Eighteen To Twenty Week Suhas Update Ultra Sound Date Fundal Height At Umbil Quickening Date Ultra Sound Latest Weeks Gestation Final Suhas Confirmed By Final Suhas Confirmed Date Final Suhas Date Ultra Sound Latest Days Gestation 0 0 Menstrual History Last Menstrual Date Menses Monthly On Bcp Conception Prior Menses Frequency Hcg Plus Date Menarche Onset Age Delivery Information Delivery Date Delivery Type Labor Anesthesia Weeks Gestation Incision Type Labor Labor Length Hrs Delivered By Post Complications Tubal Sterilization Discharge Date Comments 3 Discharge Information Feeding Method Contraceptive Method Maternal HG B and HCT Levels Ob Episode Information Episode Created Date Number of Fetuses Patient Bloodtype Patient rh Status Prepregnancy Weight lbs Domestic Partner Domestic Partner Phone Father Name Hand Frame Surgical Elastic Knitter Status 01/10/20 25 1 CLOSED Fetus Data First Name Last Name Admitted to NICU Weight (g) Sex Living Outcome Pediatric Complications Fetus ID Race Codes Race Delivery Type , Spontane ous [id number] Suhas Calculation Initial Suhas Date Initial Exam Date Initial Exam Provider Initial Ultrasound Date Last Menstrual Period Date Ultra Sound Weeks Gestation 0 Eighteen To Twenty Week Suhas Update Ultra Sound Date Fundal Height At Umbil Quickening Date Ultra Sound Latest Weeks Gestation Final Suhas Confirmed By Final Suhas Confirmed Date Final Suhas Date Ultra Sound Latest Days Gestation 0 0 Menstrual History Last Menstrual Date Menses Monthly On Bcp Conception Prior Menses Frequency Hcg Plus Date Menarche Onset Age Delivery Information Delivery Date Delivery Type Labor Anesthesia Weeks Gestation Incision Type Labor Labor Length Hrs Delivered By Post Complications Tubal Sterilization Discharge Date Comments 4 Discharge Information Feeding Method Contraceptive Method Maternal HG B and HCT Levels Ob Episode Information Episode Created Date Number of Fetuses Patient Bloodtype Patient rh Status Prepregnancy Weight lbs Domestic Partner Domestic Partner Phone Father Name Hand Frame Surgical Elastic Knitter Status 01/10/20 25 1 CLOSED Fetus Data First Name Last Name Admitted to NICU Weight (g) Sex Living Outcome Pediatric Complications Fetus ID Race Codes Race Delivery Type , Spontane ous [id number] Suhas Calculation Initial Suhas Date Initial Exam Date Initial Exam Provider Initial Ultrasound Date Last Menstrual Period Date Ultra Sound Weeks Gestation 0 Eighteen To Twenty Week Suhas Update Ultra Sound Date Fundal Height At Umbil Quickening Date Ultra Sound Latest Weeks Gestation Final Suhas Confirmed By Final Suhas Confirmed Date Final Suhas Date Ultra Sound Latest Days Gestation 0 0 Menstrual History Last Menstrual Date Menses Monthly On Bcp Conception Prior Menses Frequency Hcg Plus Date Menarche Onset Age Delivery Information Delivery Date Delivery Type Labor Anesthesia Weeks Gestation Incision Type Labor Labor Length Hrs Delivered By Post Complications Tubal Sterilization Discharge Date Comments 4 Discharge Information Feeding Method Contraceptive Method Maternal HG B and HCT Levels
--- OUTSIDE RECORDS SUMMARY | 2025-06-14 19:54 | XMS_ITS | Continuity of Care Document ---
Author Organization [facility] Address [address] [address] Assessment No assessment recorded. Plan of Treatment [...] Not Available [facility] [address], [place], [address], 02/11/2025 00:34:26 02/12/20 25 02/11/2025 [UNIT Y] ANEUP LOIDY NIPT 22Q11.2 microdeletio n LOW RISK <1 in 10,000 normal Not Available [facility] [address], [place], [address], 02/11/2025 00:34:26 02/12/20 25 02/11/2025 [UNIT Y] ANEUP LOIDY NIPT sex chromosome aneuploidy NOT DETECT ED normal Not Available [facility] [address], [place], [address], 02/11/2025 00:34:26 02/12/20 25 02/11/2025 [UNIT Y] ANEUP LOIDY NIPT monosomy X LOW RISK <1 in 10,000 normal Not Available [facility] [address], [place], [address], 02/11/2025 00:34:26 02/12/20 25 02/11/2025 [UNIT Y] ANEUP LOIDY NIPT trisomy 13 LOW RISK <1 in 10,000 normal Not Available [facility] [address], [place], [address], 02/11/2025 00:34:26 02/12/20 25 02/11/2025 [UNIT Y] ANEUP LOIDY NIPT trisomy 18 LOW RISK <1 in 10,000 normal Not Available [facility] [address], [place], [address], 02/11/2025 00:34:26 02/12/20 25 02/11/2025 [UNIT Y] ANEUP LOIDY NIPT trisomy 21 LOW RISK <1 in 10,000 normal Not Available [facility] [address], [place], [address], 02/11/2025 00:34:26 02/12/20 25 02/11/2025 [UNIT Y] ANEUP LOIDY NIPT sex FEMALE normal Not Available [facility] [address], [place], [address], 02/11/2025 00:34:26 02/12/20 25 02/11/2025 [UNIT Y] ANEUP LOIDY NIPT gestation SINGLE TON normal Not Available [facility] [address], [place], [address], 02/11/2025 00:34:26 02/12/20 25 02/11/2025 [UNIT Y] ANEUP LOIDY NIPT for detailed report, see pdf See PDF normal Not Available [facility] [address], [place], [address], 02/11/2025 00:34:26 02/19/20 25 02/18/2025 [UNIT Y] KECIA DAYANARA DIAMANTEJaciel Molina sickle cell disease/beta -thalassemia /hemoglobino pathies carrier screen NEGATI VE normal Not Available [facility] [address], [place], [address], 02/18/2025 01:11:43 02/19/20 25 02/18/2025 [UNIT Y] KECIA BOBBYJaciel Molina alpha-thalas semia carrier screen NEGATI VE normal Not Available [facility] [address], [place], [address], 02/18/2025 01:11:43 02/19/20 25 02/18/2025 [UNIT Y] KECIA DAYANARA DIAMANTEJaciel Molina cystic fibrosis carrier screen NEGATI VE normal Not Available [facility] [address], [place], [address], 02/18/2025 01:11:43 02/19/20 25 02/18/2025 [UNIT Y] KECIA DAYANARA DIAMANTEJaciel Molina spinal muscular atrophy carrier screen NEGATI VE 2 SMN1 copies , SNP not presen t normal Not Available [facility] [address], [place], [address], 02/18/2025 01:11:43 02/19/20 25 02/18/2025 [UNIT Y] KECIA DAYANARA Molina for detailed report, see pdf See PDF normal Not Available [facility] [address], [place], [address], 02/18/2025 01:11:43 02/04/2002/03/2025 HIV 1/2 ANTIG EN/AN TIBOD Y, REFLE X CONFI RMATI ON HIV antigen/anti body Nonrea ctive nonrea ctive HIV-1 antig en and HIV-1 /HIV- 2 antib odies were not detec marvin. No labor atory evide nce of HIV infec tion. Not Available [facility] (Lab) [address], [place], [address], 02/04/2025 14:19:01 02/04/2002/03/2025 HEPAT ITIS B SURFA CE ANTIG EN hepatitis B surface antigen Non-re active non-re active This assay was perfo rmed using [employer] ratio n reage nts and test kits. Value s obtai amy with other assay metho ds or kits canno t be used inter cyr eably . Not Available [facility] (Lab) [address], [place], [address], 02/04/2025 14:19:02 02/04/2002/03/2025 HEPAT ITIS C ANTIB MANAN SCREE N, REFLE X TO CONFI RMATI ON hepatitis C antibody Non-re active non-re active Antib odies to HCV Not Detec marvin, does not exclu de the possi bilit y of expos ure to HCV. Not Available [facility] (Lab) [address], [place], [address], 02/04/2025 14:19:02 02/04/2002/03/2025 RUBEL LA IGG ANTIB MANAN, QUANT rubella antibodies, IgG Reacti ve reacti ve Not Available [facility] (Lab) [address], [place], [address], 02/04/2025 14:19:03 02/04/2002/03/2025 RUBEL LA IGG ANTIB MANAN, QUANT rubella antibodies, IgG quant 11.5 IU/mL >=10 Non-r eacti ve (Non- Immun e) <10 IU/mL React chastity (Immu ne) > or = 10 IU/mL Not Available [facility] (Lab) [address], [place], [address], 02/04/2025 14:19:03 02/04/2002/03/2025 HEMOG LOBIN A1C hemoglobin [...] >8.0% Actio n sugge sted Not Available [facility] (Lab) [address], [place], [address], 02/04/2025 14:19:03 02/04/2002/03/2025 TYPE/ RH/SC REEN ABO/Rh type A POS Not Available [facility] (Lab) [address], [place], [address], 02/04/2025 14:19:04 02/04/20 25 02/03/2025 TYPE/ RH/SC REEN antibody screen NEG Not Available [facility] (Lab) [address], [place], [address], 02/04/2025 14:19:04 02/04/20 25 02/03/2025 TYPE/ RH/SC REEN exp date 2024 23:59 Not Available [facility] (Lab) [address], [place], [address], 02/04/2025 14:19:04 02/04/20 25 02/03/2025 RPR SCREE N, REFLE X TITER /CONF IRMAT ION RPR qualitative Nonrea ctive nonrea ctive Not Available [facility] (Lab) [address], [place], [address], 02/04/2025 14:19:04 04/14/20 25 04/14/2025 HEMOG LOBIN (HGB) HGB 11.0 g/dL (based on docume nted legal sex) 11.6-1 5.4 low Not Available [facility] (Lab) [address], [place], [address], 04/15/2025 12:46:15 04/14/20 25 04/14/2025 HEMAT OCRIT (HCT) HCT 35.7 % (based on docume nted legal sex) 34.0-4 5.0 Not Available [facility] (Lab) [address], [place], [address], 04/15/2025 12:46:16 04/14/20 25 04/14/2025 GTT - GESTA SHASHANK L SCREE N, ACOG OB glucose, 1 hour screen 99 mg/dL 70-135 Not Available [facility] (Lab) [address], [place], [address], 04/15/2025 12:46:16 04/14/20 25 04/14/2025 HIV 1/2 ANTIG EN/AN TIBOD Y, REFLE X CONFI RMATI ON HIV antigen/anti body Nonrea ctive nonrea ctive HIV-1 antig en and HIV-1 /HIV- 2 antib odies were not detec marvin. No labor atory evide nce of HIV infec tion. Not Available [facility] (Lab) [address], [place], [address], 04/15/2025 12:46:17 04/14/20 25 04/14/2025 RPR SCREE N, REFLE X TITER /CONF IRMAT ION RPR qualitative Nonrea ctive nonrea ctive Not Available [facility] (Lab) [address], [place], [address], 04/15/2025 12:46:17 05/24/20 25 05/24/2025 CULTU RE: [...] Resul jarrodg Lab: [facility] [address] [facility] [address] Tel: CULTU RE ----- ----- ----- --- No Group B strep isola marvin at 2 days (devin ctive broth enhan cemen t) Not Available [facility] (Lab) [address], [place], [address], 05/27/2025 15:26:08 02/04/20 25 02/03/2025 US, obste tric, follo w-up No observ ation record ed. [facility] [address], [place], [address], 02/03/2025 17:50:45 02/04/20 25 02/03/2025 US, obste tric, trans vagin al No observ ation record ed. [facility] [address], [place], [address], 02/03/2025 17:50:54 02/04/20 25 02/03/2025 US, obste tric, follo w-up No observ ation record ed. [email or web address] [facility] [address] [place] [address] [address], [place], [address], 02/17/2025 09:47:46 03/01/2003/01/2025 US, obste tric, trans vagin al No observ ation record ed. [facility] [address], [place], [address], 03/01/2025 18:51:07 03/01/20 25 03/01/2025 US, obste tric, follo w-up No observ ation record ed. [facility] [address], [place], [address], 03/01/2025 18:51:17 03/01/2003/01/2025 US, obste tric, trans vagin al No observ ation record ed. [email or web address] [facility] [address], [place], [address], 03/04/2025 11:18:02 04/13/2004/13/2025 US, obste tric, follo w-up No observ ation record ed. [email or web address] [facility] [address], [place], [address], 04/18/2025 10:57:58 04/13/2004/13/2025 US, obste tric, follo w-up No observ ation record ed. [email or web address] [facility] [address], [place], [address], 04/13/2025 14:33:43 04/13/2004/13/2025 US, obste tric, trans vagin al No observ ation record ed. [email or web address] [facility] [address], [place], [address], 04/13/2025 14:33:53 04/25/2004/25/2025 US, obste tric, follo w-up No observ ation record ed. [email or web address] [address], [address], 04/26/2025 12:18:39 04/26/2004/25/2025 US, obste tric, follo w-up No observ ation record ed. [email or web address] [facility] [address], [address], 05/16/2025 16:36:08 05/16/2005/16/2025 US, obste tric, follo w-up No observ ation record ed. GEOFFREY Carson [address], [place], [address], 06/02/2025 12:50:00 05/16/2005/16/2025 US, obste tric, follo w-up No observ ation record ed. [facility] [address], [place], [address], 05/16/2025 18:39:43 05/16/2005/16/2025 US, obste tric, trans vagin al No observ ation record ed. [facility] [address], [place], [address], 05/16/2025 18:39:52 Result Notes None recorded. Problems Name Problem SNOMED Code Status Onset Date Resolution Date Notes Provider Name and Address Organization Details Recorded Time 84698487 Active 2024 ALAN Cai [facility] 14:57:49 Low-lying placenta 667386088 Active 2024 8mm from OS at 21 weeks, repeat in 4 weeks faxed referral [facility] Willow 04/18 Amberly Arteaga [facility] 11:02:39 Problem Notes None recorded. Procedures Surgical History Date Name Laterality Status Provider Name and Address Organization Details Recorded Time 11/19/19 18 tonsillectomy and adenoidectomy completed ALAN Cai [facility] 01/09/2025 12:24:46 tonsilectomy/winston oids completed Rebekah Mancia [facility] 03/01/2025 16:34:53 Imaging Results None recorded. Procedure Notes None recorded. Medical Equipment None Reported. Allergies Allergen ID Allergen Name Allergen Category Reaction Reaction Severity Criticality Documentation Date Start Date Code Code System Note Provider Name and Address Organization Details Recorded Time naproxen medicatio n abdominal pain moderate Not available 01/09/2025 7258 RxNorm ALAN Cai [facility] 12:21:23 Medications Name Sig Start Date [...] Updated DateTime 06/06/2025 165.1 cm 34.1 kg/m2 83641.44 g 133/84 mm[Hg] Delphine Steve [facility] 06/06/2025 12:32:30 Social History Question Answer Notes LastModified by Organizat ion Details LastModified Time Do You Have An Advance Directive? No [email or web address] Information n ot available 01/09/2025 Are You Blind Or Do You Have Difficulty Seeing? No [email or web address] Information not available 01/09/2025 What Is Your Level Of Caffeine Consumption? Moderate [email or web address] Information not available 01/09/2025 How Much Tobacco Do You Chew? None Information not available 01/09/2025 In The 14 Days Before Symptom Onset, Have You Had Close Contact With A Laboratory-confirme d COVID-19 While That Case Was Ill? No [email or web address] Information n ot available 01/09/2025 In The 14 Days Before Symptom Onset, Have You Had Close Contact With A Person Who Is Under Investigation For COVID-19 While That Person Was Ill? No Information not available 01/09/2025 Have You Been To An Area Known To Be High Risk For COVID-19? No [email or web address] Information not available 01/09/2025 Are You Deaf Or Do You Have Serious Difficulty Hearing? No Information not available 01/09/2025 What Type Of Diet Are You Following? REGULAR [email or web address] Information n ot available 01/09/2025 What Is The Highest Grade Or Level Of School You Have Completed Or The Highest Degree You Have Received? [id number] [email or web address] Information not available 01/09/2025 Are There Any Guns Present In Your Home? No [email or web address] Information not available 01/09/2025 Do You Use Protection During Sex? No Information not available 01/09/2025 Do You Use Your Seat Belt Or Car Seat Routinely? Yes [email or web address] Information not available 01/09/2025 Are You Sexually Active? Yes [email or web address] Information not available 03/01/2025 Do You Have Smoke And Carbon Monoxide Detectors In Your Home? Yes Information not available 01/09/2025 How Much Tobacco Do You Smoke? No [email or web address] Information not available 01/09/2025 Do You Use Sunscreen Routinely? No [email or web address] Information not available 01/09/2025 Have You Used IV Drugs? No [email or web address] Information not available 01/09/2025 Sex: Unknown Functional Status Question Answer Note LastModified by Organizat ion Details LastModified Time Do you use any illicit or recreational drugs? No [email or web address] Information not available 01/09/2025 What is your level of alcohol consumption? None [email or web address] Information not available 01/09/2025 Are you currently employed? Yes Information not available 03/01/2025 Are you able to walk independently without assistance or assistive devices? 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 Occasional [email or web address] Information not available 01/09/2025 Mental Status Question Answer Note LastModified by Organization D etails LastModified Time Do you feel stressed (tense, restless, nervous, or anxious, or unable to sleep at night)? [id number] [email or web address] Information not available 01/09/2025 Family History Relationship Description Onset Age of this Age Resolved Age Notes LastModified by Organization Details LastModified Time Maternal Grandfather Heart disease [email or web address] Not available 2024 12:25:30 Medical History Condition [...] ICD10 Code Diagnosis IMO Codes Diagnosis Note [id number] DUARTE RAMÍREZ MD [facility] [address] [address] 05/10/2025 10:07:47 05/10/2025 12:24:38 Low-lying placenta 063274050 O44.40 10844689 - placental mass 1.7cm from os, with maternal vessel at edge of placenta- MFM follow up in 3 weeks; will reschedule to office due to cost- pelvic rest Gestation period, 34 weeks 87073387 Z3A.34 [id number] DUARTE RAMÍREZ MD [facility] [address] [address] 05/16/2025 16:56:29 05/17/2025 08:24:49 Low-lying placenta 964886222 O44.40 O09.523 Z3A.35 512321 - placental mass 1.7cm from os, with maternal vessel at edge of placenta- MFM follow up in 3 weeks; will reschedule to office due to cost- pelvic rest [id number] DUARTE RAMÍREZ MD [facility] [address] [address] 05/16/2025 16:57:18 05/17/2025 22:17:31 care status 903031562 Z34.83 [id number] [id number] DUARTE RAMÍREZ MD [facility] [address],[place] [address] 05/24/2025 15:57:07 05/24/2025 16:25:52 care status 045122110 Z34.83 [id number] DUARTE RAMÍREZ MD [facility] [address],[place] [address] 05/30/2025 09:37:18 05/30/2025 10:21:45 care status 374131595 Z34.83 [id number] DUARTE RAMÍREZ MD [facility] [address],[place] [address] 06/06/2025 12:24:53 06/06/2025 12:50:01 care status 860114535 Z34.83 [id number] Health Concerns Section Related Observation LastModified by Organization Detai ls LastModified Time None Recorded Concern Status LastModified by Organization Details LastModified Time None Recorded Payers Encounter Date Sequence Insurance Name Policy Number Policy Torres Covered Member ID Torres Member ID Guarantor Name 06/06/2025 1 *SELF PAY* Juma Jackson Notes Date Note Type Note Provider Name and Address Organization Details Recorded Time 06/06/2025 text/html Generic HPI TemplateReported by Patient DUARTE RAMÍREZ MD [address], [place], [address], [facility] 06/06/2025 12:47:32 OBGyn Episode Ob Episode Information Episode Created Date Number of Fetuses Patient Bloodtype Patient rh Status Prepregnancy Weight lbs Domestic Partner Domestic Partner Phone Father Name Grain Combiner Status 01/18/20 25 1 A Positive OPEN Fetus Data First Name Last Name Admitted to NICU Weight (g) Sex Living Outcome Pediatric Complications Fetus ID Race Codes Race Delivery Type [id number] Problems Problem Notes Problem Name Start Date End Date Resolution Snomed Code Not e Low-lying placenta 02/03/2025 968417008 8mm from OS at 21 weeks, repeat [...] Type Weight in lbs Pre/Post Dialysis Refused 174.27648920220 BP Diastolic BP Location Tested BP Systolic [...] Type Weight in lbs Pre/Post Dialysis Refused 184.639575317170 BP Diastolic BP Location Tested BP Systolic [...] Type Weight in lbs Pre/Post Dialysis Refused 194.244714050049 BP Diastolic BP Location Tested BP Systolic BP Type 75 L arm 129 sitting Fetus Heart Rate Present Fetus Movement A Yes Comments Good movement. Having some increased back pain, mostly with laying down. EFW 67%, placental mass now 1.9cm away from os, however there is a low flow vascularity seen between the placenta and the cervix. Will send to [facility] for further evaluation. Continue pelvic rest. GCT and labs today. RTC 2 weeks. Flowsheet Date 04/27/2025 Jay Score Blood Edema Fundus Height Fundus Units Glucose Ketones Leukocytes Nitrite Labor Signs Protein Cervic Dilation Cervic Effacement Cervic Station Type Weight in lbs Pre/Post Dialysis Refused Weight 199.566742428976 BP Diastolic BP Location Tested BP Systolic BP Type 72 L arm 118 sitting Fetus Heart Rate Present A 145 Fetus Movement A Yes Comments Flowsheet Date 05/10/2025 Jay Score Blood Edema Fundus Height Fundus Units Glucose Ketones Leukocytes Nitrite Labor Signs Protein Cervic Dilation Cervic Effacement Cervic Station Type Weight in lbs Pre/Post Dialysis Refused 200.503537855436 BP Diastolic BP Location Tested BP Systolic [...] Type Weight in lbs Pre/Post Dialysis Refused 198.556675480904 BP Diastolic BP Location Tested BP Systolic [...] Weight in lbs Pre/Post Dialysis Refused Weight 202.596907324868 BP Diastolic BP Location Tested BP Systolic [...] Weight in lbs Pre/Post Dialysis Refused Weight 202.555738815387 BP Diastolic BP Location Tested BP Systolic [...] Weight in lbs Pre/Post Dialysis Refused Weight 205.521625649543 BP Diastolic BP Location Tested BP Systolic [...] Weight in lbs Pre/Post Dialysis Refused Weight 204.333598858402 BP Diastolic BP Location Tested BP Systolic [...]
--- OUTSIDE RECORDS SUMMARY | 2025-06-14 19:54 | XMS_ITS | Continuity of Care Document ---
Author Organization [facility] Address [address] [place] [address] Assessment No assessment recorded. Plan of Treatment [...] Not Available [facility] [address], [place], [address], 02/11/2025 00:34:26 02/12/20 25 02/11/2025 [UNIT Y] ANEUP LOIDY NIPT 22Q11.2 microdeletio n LOW RISK <1 in 10,000 normal Not Available [facility] [address], [place], [address], 02/11/2025 00:34:26 02/12/20 25 02/11/2025 [UNIT Y] ANEUP LOIDY NIPT sex chromosome aneuploidy NOT DETECT ED normal Not Available [facility] [address], [place], [address], 02/11/2025 00:34:26 02/12/20 25 02/11/2025 [UNIT Y] ANEUP LOIDY NIPT monosomy X LOW RISK <1 in 10,000 normal Not Available [facility] [address], [place], [address], 02/11/2025 00:34:26 02/12/20 25 02/11/2025 [UNIT Y] ANEUP LOIDY NIPT trisomy 13 LOW RISK <1 in 10,000 normal Not Available [facility] [address], [place], [address], 02/11/2025 00:34:26 02/12/20 25 02/11/2025 [UNIT Y] ANEUP LOIDY NIPT trisomy 18 LOW RISK <1 in 10,000 normal Not Available [facility] [address], [place], [address], 02/11/2025 00:34:26 02/12/20 25 02/11/2025 [UNIT Y] ANEUP LOIDY NIPT trisomy 21 LOW RISK <1 in 10,000 normal Not Available [facility] [address], [place], [address], 02/11/2025 00:34:26 02/12/20 25 02/11/2025 [UNIT Y] ANEUP LOIDY NIPT sex FEMALE normal Not Available [facility] [address], [place], [address], 02/11/2025 00:34:26 02/12/20 25 02/11/2025 [UNIT Y] ANEUP LOIDY NIPT gestation SINGLE TON normal Not Available [facility] [address], [place], [address], 02/11/2025 00:34:26 02/12/20 25 02/11/2025 [UNIT Y] ANEUP LOIDY NIPT for detailed report, see pdf See PDF normal Not Available [facility] [address], [place], [address], 02/11/2025 00:34:26 02/19/20 25 02/18/2025 [UNIT Y] KECIA DAYANARA DIAMANTEJaciel Molina sickle cell disease/beta -thalassemia /hemoglobino pathies carrier screen NEGATI VE normal Not Available [facility] [address], [place], [address], 02/18/2025 01:11:43 02/19/20 25 02/18/2025 [UNIT Y] KECIA BOBBYaJciel Molina alpha-thalas semia carrier screen NEGATI VE normal Not Available [facility] [address], [place], [address], 02/18/2025 01:11:43 02/19/20 25 02/18/2025 [UNIT Y] KECIA DAYANARA DIAMANTEJaciel Molina cystic fibrosis carrier screen NEGATI VE normal Not Available [facility] [address], [place], [address], 02/18/2025 01:11:43 02/19/20 25 02/18/2025 [UNIT Y] KECIA DAYANARA DIAMANTEJaciel Molina spinal muscular atrophy carrier screen NEGATI VE 2 SMN1 copies , SNP not presen t normal Not Available [facility] [address], [place], [address], 02/18/2025 01:11:43 02/19/20 25 02/18/2025 [UNIT Y] KECIA DAYANARA Molina for detailed report, see pdf See PDF normal Not Available [facility] [address], [place], [address], 02/18/2025 01:11:43 02/04/2002/03/2025 HIV 1/2 ANTIG EN/AN TIBOD Y, REFLE X CONFI RMATI ON HIV antigen/anti body Nonrea ctive nonrea ctive HIV-1 antig en and HIV-1 /HIV- 2 antib odies were not detec marvin. No labor atory evide nce of HIV infec tion. Not Available [facility] (Lab) [address], [place], [address], 02/04/2025 14:19:01 02/04/2002/03/2025 HEPAT ITIS B SURFA CE ANTIG EN hepatitis B surface antigen Non-re active non-re active This assay was perfo rmed using [employer] ratio n reage nts and test kits. Value s obtai amy with other assay metho ds or kits canno t be used inter cyr eably . Not Available [facility] (Lab) [address], [place], [address], 02/04/2025 14:19:02 02/04/2002/03/2025 HEPAT ITIS C ANTIB MANAN SCREE N, REFLE X TO CONFI RMATI ON hepatitis C antibody Non-re active non-re active Antib odies to HCV Not Detec marvin, does not exclu de the possi bilit y of expos ure to HCV. Not Available [facility] (Lab) [address] [facility] [address], [place], [address], 02/04/2025 14:19:02 02/04/2002/03/2025 RUBEL LA IGG ANTIB MANAN, QUANT rubella antibodies, IgG Reacti ve reacti ve Not Available [facility] (Lab) [address] [facility], [place], [address], 02/04/2025 14:19:03 02/04/2002/03/2025 RUBEL LA IGG ANTIB MANAN, QUANT rubella antibodies, IgG quant 11.5 IU/mL >=10 Non-r eacti ve (Non- Immun e) <10 IU/mL React chastity (Immu ne) > or = 10 IU/mL Not Available [facility] (Lab) [address] [facility], [place], [address], 02/04/2025 14:19:03 02/04/2002/03/2025 HEMOG LOBIN A1C hemoglobin [...] >8.0% Actio n sugge sted Not Available [facility] (Lab) [address] [facility], [place], [address], 02/04/2025 14:19:03 02/04/2002/03/2025 TYPE/ RH/SC REEN ABO/Rh type A POS Not Available [facility] (Lab) [address], [place], [address], 02/04/2025 14:19:04 02/04/20 25 02/03/2025 TYPE/ RH/SC REEN antibody screen NEG Not Available [facility] (Lab) [address] [facility], [place], [address], 02/04/2025 14:19:04 02/04/20 25 02/03/2025 TYPE/ RH/SC REEN exp date 2024 23:59 Not Available [facility] (Lab) [address] [facility], [place], [address], 02/04/2025 14:19:04 02/04/20 25 02/03/2025 RPR SCREE N, REFLE X TITER /CONF IRMAT ION RPR qualitative Nonrea ctive nonrea ctive Not Available [facility] (Lab) [address], [place], [address], 02/04/2025 14:19:04 04/14/20 25 04/14/2025 HEMOG LOBIN (HGB) HGB 11.0 g/dL (based on docume nted legal sex) 11.6-1 5.4 low Not Available [facility] ([facility]) [address] [facility], [place], [address], 04/15/2025 12:46:15 04/14/2004/14/2025 HEMAT OCRIT (HCT) HCT 35.7 % (based on docume nted legal sex) 34.0-4 5.0 Not Available [facility] ([facility]) [address] [facility], [place], [address], 04/15/2025 12:46:16 04/14/2004/14/2025 GTT - GESTA SHASHANK L SCREJaciel N, ACOG OB glucose, 1 hour screen 99 mg/dL 70-135 Not Available [facility] (Lab) [address] [facility] [address], [place], [address], 04/15/2025 12:46:16 04/14/2004/14/2025 HIV 1/2 ANTIG EN/AN TIBOD Y, REFLE X CONFI RMATI ON HIV antigen/anti body Nonrea ctive nonrea ctive HIV-1 antig en and HIV-1 /HIV- 2 antib odies were not detec marvin. No labor atory evide nce of HIV infec tion. Not Available [facility] (Lab) [address] [facility] [address], [place], [address], 04/15/2025 12:46:17 04/14/2004/14/2025 RPR SCREE N, REFLE X TITER /CONF IRMAT ION RPR qualitative Nonrea ctive nonrea ctive Not Available [facility] (Lab) [address] [facility], [place], [address], 04/15/2025 12:46:17 02/04/2002/03/2025 US, obste tric, follo w-up No observ ation record ed. [facility] [address], [place], [address], 02/03/2025 17:50:45 0702/03/2025 US, obste tric, trans vagin al No observ ation record ed. [facility] [address], [place], [address], 02/03/2025 17:50:54 02/04/2002/03/2025 US, obste tric, follo w-up No observ ation record ed. [facility] [address], [place], [address], 02/17/2025 09:47:46 03/01/2003/01/2025 US, obste tric, trans vagin al No observ ation record ed. [facility] [address], [place], [address], 03/01/2025 18:51:07 03/01/2003/01/2025 US, obste tric, follo w-up No observ ation record ed. [facility] [address], [place], [address], 03/01/2025 18:51:17 03/01/2003/01/2025 US, obste tric, trans vagin al No observ ation record ed. [email or web address] [facility] [address], [place], [address], 03/04/2025 11:18:02 04/13/2004/13/2025 US, obste tric, follo w-up No observ ation record ed. [email or web address] [facility] [address], [place], [address], 04/18/2025 10:57:58 04/13/2004/13/2025 US, obste tric, follo w-up No observ ation record ed. [address], [place], [address], 04/13/2025 14:33:43 04/13/2004/13/2025 US, obste tric, trans vagin al No observ ation record ed. [email or web address] [facility] [address], [place], [address], 04/13/2025 14:33:53 04/25/2004/25/2025 US, obste tric, follo w-up No observ ation record ed. [address] [facility] [address], [address], 04/26/2025 12:18:39 04/26/2004/25/2025 US, obste tric, follo w-up No observ ation record ed. [address], [address], 05/16/2025 16:36:08 05/16/2005/16/2025 US, obste tric, follo w-up No observ ation record ed. GEOFFREY [facility] [address], [place], [address], 06/02/2025 12:50:00 05/16/2005/16/2025 US, obste tric, follo w-up No observ ation record ed. [facility] [address], [place], [address], 05/16/2025 18:39:43 05/16/2005/16/2025 US, obste tric, trans vagin al No observ ation record ed. [facility] [address], [place], [address], 05/16/2025 18:39:52 Result Notes None recorded. Problems Name Problem SNOMED Code Status Onset Date Resolution Date Notes Provider Name and Address Organization Details Recorded Time 00871109 Active 2024 [facility] 14:57:49 Low-lying placenta 905944766 Active 2024 8mm from OS at 21 weeks, repeat in 4 weeks faxed referral SSAndres Daugherty 04/18 [facility] 11:02:39 Problem Notes None recorded. Procedures Surgical History Date Name Laterality Status Provider Name and Address Organization Details Recorded Time 11/19/19 18 tonsillectomy and adenoidectomy completed ALAN Cai [facility] 01/09/2025 12:24:46 tonsilectomy/winston oids completed Rebekah Mancia [facility] 03/01/2025 16:34:53 Imaging Results None recorded. Procedure Notes None recorded. Medical Equipment None Reported. Allergies Allergen ID Allergen Name Allergen Category Reaction Reaction Severity Criticality Documentation Date Start Date Code Code System Note Provider Name and Address Organization Details Recorded Time naproxen medicatio n abdominal pain moderate Not available 01/09/2025 7258 RxNorm [facility] 12:21:23 Medications Name Sig Start Date Stop Date Status Note LastModified by Organization Details LastModified Time misoprostol 200 mcg tablet TAKE 4 TABLETS EVERY DAY BY MOUTH FOR ONE DAY 01/09 completed Not Available Not Available Not Available active Not Available Not Avai lable Not Available Vitals Date Recorded Body weight Body mass index (BMI) Body height Systolic And Diastolic Provider Name and Address Organization Details Last Updated DateTime 05/10/2025 14959.474 g 33.3 kg/m2 165.1 cm 132/76 mm[Hg] Delphine Wilson [facility] 05/10/2025 10:32:50 Social History Question Answer Notes LastModified by Organizat ion Details LastModified Time Do You Have An Advance Directive? No [email or web address] Information n ot available 01/09/2025 Are You Blind Or Do You Have Difficulty Seeing? No [email or web address] Information not available 01/09/2025 What Is Your Level Of Caffeine Consumption? Moderate [email or web address] Information not available 01/09/2025 How Much Tobacco Do You Chew? None [email or web address] Information not available 01/09/2025 In The 14 Days Before Symptom Onset, Have You Had Close Contact With A Laboratory-confirme d COVID-19 While That Case Was Ill? No [email or web address] Information n ot available 01/09/2025 In The 14 Days Before Symptom Onset, Have You Had Close Contact With A Person Who Is Under Investigation For COVID-19 While That Person Was Ill? No [email or web address] Information not available 01/09/2025 Have You Been To An Area Known To Be High Risk For COVID-19? No [email or web address] Information not available 01/09/2025 Are You Deaf Or Do You Have Serious Difficulty Hearing? No [email or web address] Information not available 01/09/2025 What Type Of Diet Are You Following? REGULAR [email or web address] Information n ot available 01/09/2025 What Is The Highest Grade Or Level Of School You Have Completed Or The Highest Degree You Have Received? [id number] Information not available 01/09/2025 Are There Any Guns Present In Your Home? No [email or web address] Information not available 01/09/2025 Do You Use Protection During Sex? No [email or web address] Information not available 01/09/2025 Do You Use Your Seat Belt Or Car Seat Routinely? Yes Information not available 01/09/2025 Are You Sexually Active? Yes [email or web address] Information not available 03/01/2025 Do You Have Smoke And Carbon Monoxide Detectors In Your Home? Yes Information not available 01/09/2025 How Much Tobacco Do You Smoke? No Information not available 01/09/2025 Do You Use Sunscreen Routinely? No [email or web address] Information not available 01/09/2025 Have You Used IV Drugs? No [email or web address] Information not available 01/09/2025 Sex: Unknown Functional Status Question Answer Note LastModified by Organizat ion Details LastModified Time Do you use any illicit or recreational drugs? No [email or web address] Information not available 01/09/2025 What is your level of alcohol consumption? None [email or web address] Information not available 01/09/2025 Are you currently employed? Yes [email or web address] Information not available 03/01/2025 Are you able to walk independently without assistance or assistive devices? 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 Occasional [email or web address] Information not available 01/09/2025 Mental Status Question Answer Note LastModified by Organization D etails LastModified Time Do you feel stressed (tense, restless, nervous, or anxious, or unable to sleep at night)? [id number] [email or web address] Information not available 01/09/2025 Family History Relationship Description Onset Age of this Age Resolved Age Notes LastModified by Organization Details LastModified Time Maternal Grandfather Heart disease [email or web address] Not available 2024 12:25:30 Medical History Condition [...] ICD10 Code Diagnosis IMO Codes Diagnosis Note [id number] DUARTE RAMÍREZ MD [facility] [address],[place] [address] 04/13/2025 12:22:16 04/13/2025 13:36:03 Low-lying placenta 034728451 O44.40 Z3A.31 99634784 - repeat US in 4 weeks- pelvic rest [id number] DUARTE RAMÍREZ MD [facility] [address],[place] [address] 04/14/2025 10:47:19 04/14/2025 12:03:17 Low-lying placenta 899837560 O44.40 12518985 - placental mass 1.9cm from os, however low flow vascularit y seen between placenta and cervix- MFM consult- pelvic rest Gestation period, 31 weeks 37967719 Z3A.31 4230265 -continue PNV [id number] DUARTE RAMÍREZ MD [facility] [address],[place] [address] 04/27/2025 10:39:03 04/27/2025 12:08:50 Low-lying placenta 883481275 O44.40 15348523 - placental mass 1.7cm from os, with maternal vessel at edge of placenta- MFM follow up in 3 weeks- pelvic rest Gestation period, 33 weeks 78481519 Z3A.33 9583206 [id number] DUARTE RAMÍREZ MD [facility] [address],[place] [address] 05/10/2025 10:07:47 05/10/2025 12:24:38 Low-lying placenta 067586776 O44.40 75875489 - placental mass 1.7cm from os, with maternal vessel at edge of placenta- MFM follow up in 3 weeks; will reschedule to office due to cost- pelvic rest Gestation period, 34 weeks 92777412 Z3A.34 [id number] Health Concerns Section Related Observation LastModified by Organization Detai ls LastModified Time None Recorded Concern Status LastModified by Organization Details LastModified Time None Recorded Payers Encounter Date Sequence Insurance Name Policy Number Policy Torres Covered Member ID Torres Member ID Guarantor Name 05/10/2025 1 *SELF PAY* Juma Jackson Notes Date Note Type Note Provider Name and Address Organization Details Recorded Time 05/10/2025 text/html Generic HPI TemplateReported by Patient DUARTE RAMÍREZ MD [address], [place], [address], [facility] 05/10/2025 12:17:33 OBGyn Episode Ob Episode Information Episode Created Date Number of Fetuses Patient Bloodtype Patient rh Status Prepregnancy Weight lbs Domestic Partner Domestic Partner Phone Father Name Custodial Engineer Status 01/18/20 25 1 A Positive OPEN Fetus Data First Name Last Name Admitted to NICU Weight (g) Sex Living Outcome Pediatric Complications Fetus ID Race Codes Race Delivery Type [id number] Problems Problem Notes Problem Name Start Date End Date Resolution Snomed Code Not e Low-lying placenta 02/03/2025 392466667 8mm from OS at 21 weeks, repeat [...] Type Weight in lbs Pre/Post Dialysis Refused 174.02580167641 BP Diastolic BP Location Tested BP Systolic [...] Type Weight in lbs Pre/Post Dialysis Refused 184.215422766796 BP Diastolic BP Location Tested BP Systolic [...] Type Weight in lbs Pre/Post Dialysis Refused 194.448452246409 BP Diastolic BP Location Tested BP Systolic BP Type 75 L arm 129 sitting Fetus Heart Rate Present Fetus Movement A Yes Comments Good movement. Having some increased back pain, mostly with laying down. EFW 67%, placental mass now 1.9cm away from os, however there is a low flow vascularity seen between the placenta and the cervix. Will send to [facility] for further evaluation. Continue pelvic rest. GCT and labs today. RTC 2 weeks. Flowsheet Date 04/27/2025 Jay Score Blood Edema Fundus Height Fundus Units Glucose Ketones Leukocytes Nitrite Labor Signs Protein Cervic Dilation Cervic Effacement Cervic Station Type Weight in lbs Pre/Post Dialysis Refused Weight 199.285953278174 BP Diastolic BP Location Tested BP Systolic BP Type 72 L arm 118 sitting Fetus Heart Rate Present A 145 Fetus Movement A Yes Comments Flowsheet Date 05/10/2025 Jay Score Blood Edema Fundus Height Fundus Units Glucose Ketones Leukocytes Nitrite Labor Signs Protein Cervic Dilation Cervic Effacement Cervic Station Type Weight in lbs Pre/Post Dialysis Refused 200.513226272275 BP Diastolic BP Location Tested BP Systolic [...] Type Weight in lbs Pre/Post Dialysis Refused 198.688923684959 BP Diastolic BP Location Tested BP Systolic [...] Weight in lbs Pre/Post Dialysis Refused Weight 202.228185476751 BP Diastolic BP Location Tested BP Systolic [...] Weight in lbs Pre/Post Dialysis Refused Weight 202.697785839442 BP Diastolic BP Location Tested BP Systolic [...] Weight in lbs Pre/Post Dialysis Refused Weight 205.752382314801 BP Diastolic BP Location Tested BP Systolic [...] Weight in lbs Pre/Post Dialysis Refused Weight 204.769522196327 BP Diastolic BP Location Tested BP Systolic [...]
--- OUTSIDE RECORDS SUMMARY | 2025-06-14 19:54 | XMS_ITS | Continuity of Care Document ---
Author Organization [facility] Address [address] [place] [address] Assessment No assessment recorded. Plan of Treatment [...] Not Available [facility] [address], [place], [address], 02/11/2025 00:34:26 02/12/20 25 02/11/2025 [UNIT Y] ANEUP LOIDY NIPT 22Q11.2 microdeletio n LOW RISK <1 in 10,000 normal Not Available [facility] [address], [place], [address], 02/11/2025 00:34:26 02/12/20 25 02/11/2025 [UNIT Y] ANEUP LOIDY NIPT sex chromosome aneuploidy NOT DETECT ED normal Not Available [facility] [address], [place], [address], 02/11/2025 00:34:26 02/12/20 25 02/11/2025 [UNIT Y] ANEUP LOIDY NIPT monosomy X LOW RISK <1 in 10,000 normal Not Available [facility] [address], [place], [address], 02/11/2025 00:34:26 02/12/20 25 02/11/2025 [UNIT Y] ANEUP LOIDY NIPT trisomy 13 LOW RISK <1 in 10,000 normal Not Available [facility] [address], [place], [address], 02/11/2025 00:34:26 02/12/20 25 02/11/2025 [UNIT Y] ANEUP LOIDY NIPT trisomy 18 LOW RISK <1 in 10,000 normal Not Available [facility] [address], [place], [address], 02/11/2025 00:34:26 02/12/20 25 02/11/2025 [UNIT Y] ANEUP LOIDY NIPT trisomy 21 LOW RISK <1 in 10,000 normal Not Available [facility] [address], [place], [address], 02/11/2025 00:34:26 02/12/20 25 02/11/2025 [UNIT Y] ANEUP LOIDY NIPT sex FEMALE normal Not Available [facility] [address], [place], [address], 02/11/2025 00:34:26 02/12/20 25 02/11/2025 [UNIT Y] ANEUP LOIDY NIPT gestation SINGLE TON normal Not Available [facility] [address], [place], [address], 02/11/2025 00:34:26 02/12/20 25 02/11/2025 [UNIT Y] ANEUP LOIDY NIPT for detailed report, see pdf See PDF normal Not Available [facility] [address], [place], [address], 02/11/2025 00:34:26 02/19/20 25 02/18/2025 [UNIT Y] KECIA DAYANARA DIAMANTEJaciel Molina sickle cell disease/beta -thalassemia /hemoglobino pathies carrier screen NEGATI VE normal Not Available [facility] [address], [place], [address], 02/18/2025 01:11:43 02/19/20 25 02/18/2025 [UNIT Y] KECIA BOBBYJaciel Molina alpha-thalas semia carrier screen NEGATI VE normal Not Available [facility] [address], [place], [address], 02/18/2025 01:11:43 02/19/20 25 02/18/2025 [UNIT Y] KECIA DAYANARA DIAMANTEJaciel Molina cystic fibrosis carrier screen NEGATI VE normal Not Available [facility] [address], [place], [address], 02/18/2025 01:11:43 02/19/20 25 02/18/2025 [UNIT Y] KECIA DAYANARA DIAMANTEJaciel Molina spinal muscular atrophy carrier screen NEGATI VE 2 SMN1 copies , SNP not presen t normal Not Available [facility] [address], [place], [address], 02/18/2025 01:11:43 02/19/20 25 02/18/2025 [UNIT Y] KECIA DAYANARA Molina for detailed report, see pdf See PDF normal Not Available [facility] [address], [place], [address], 02/18/2025 01:11:43 02/04/2002/03/2025 HIV 1/2 ANTIG EN/AN TIBOD Y, REFLE X CONFI RMATI ON HIV antigen/anti body Nonrea ctive nonrea ctive HIV-1 antig en and HIV-1 /HIV- 2 antib odies were not detec marvin. No labor atory evide nce of HIV infec tion. Not Available [facility] (Lab) [address], [place], [address], 02/04/2025 14:19:01 02/04/2002/03/2025 HEPAT ITIS B SURFA CE ANTIG EN hepatitis B surface antigen Non-re active non-re active This assay was perfo rmed using [employer] ratio n reage nts and test kits. Value s obtai amy with other assay metho ds or kits canno t be used inter cyr eably . Not Available [facility] (Lab) [address], [place], [address], 02/04/2025 14:19:02 02/04/2002/03/2025 HEPAT ITIS C ANTIB MANAN SCREE N, REFLE X TO CONFI RMATI ON hepatitis C antibody Non-re active non-re active Antib odies to HCV Not Detec marvin, does not exclu de the possi bilit y of expos ure to HCV. Not Available [facility] (Lab) [address], [place], [address], 02/04/2025 14:19:02 02/04/2002/03/2025 RUBEL LA IGG ANTIB MANAN, QUANT rubella antibodies, IgG Reacti ve reacti ve Not Available [facility] (Lab) [address], [place], [address], 02/04/2025 14:19:03 02/04/2002/03/2025 RUBEL LA IGG ANTIB MANAN, QUANT rubella antibodies, IgG quant 11.5 IU/mL >=10 Non-r eacti ve (Non- Immun e) <10 IU/mL React chastity (Immu ne) > or = 10 IU/mL Not Available [facility] (Lab) [address], [place], [address], 02/04/2025 14:19:03 02/04/2002/03/2025 HEMOG LOBIN A1C hemoglobin [...] >8.0% Actio n sugge sted Not Available [facility] (Lab) [address], [place], [address], 02/04/2025 14:19:03 02/04/2002/03/2025 TYPE/ RH/SC REEN ABO/Rh type A POS Not Available [facility] (Lab) [address], [place], [address], 02/04/2025 14:19:04 02/04/20 25 02/03/2025 TYPE/ RH/SC REEN antibody screen NEG Not Available [facility] (Lab) [address], [place], [address], 02/04/2025 14:19:04 02/04/20 25 02/03/2025 TYPE/ RH/SC REEN exp date 2024 23:59 Not Available [facility] (Lab) [address], [place], [address], 02/04/2025 14:19:04 02/04/20 25 02/03/2025 RPR SCREE N, REFLE X TITER /CONF IRMAT ION RPR qualitative Nonrea ctive nonrea ctive Not Available [facility] (Lab) [address], [place], [address], 02/04/2025 14:19:04 04/14/20 25 04/14/2025 HEMOG LOBIN (HGB) HGB 11.0 g/dL (based on docume nted legal sex) 11.6-1 5.4 low Not Available [facility] (Lab) [address], [place], [address], 04/15/2025 12:46:15 04/14/2004/14/2025 HEMAT OCRIT (HCT) HCT 35.7 % (based on docume nted legal sex) 34.0-4 5.0 Not Available [facility] (Lab) [address], [place], [address], 04/15/2025 12:46:16 04/14/2004/14/2025 GTT - GESTA SHASHANK L SCREJaciel N, ACOG OB glucose, 1 hour screen 99 mg/dL 70-135 Not Available [facility] (Lab) [address], [place], [address], 04/15/2025 12:46:16 04/14/2004/14/2025 HIV 1/2 ANTIG EN/AN TIBOD Y, REFLE X CONFI RMATI ON HIV antigen/anti body Nonrea ctive nonrea ctive HIV-1 antig en and HIV-1 /HIV- 2 antib odies were not detec marvin. No labor atory evide nce of HIV infec tion. Not Available [facility] (Lab) [address], [place], [address], 04/15/2025 12:46:17 04/14/2004/14/2025 RPR SCREE N, REFLE X TITER /CONF IRMAT ION RPR qualitative Nonrea ctive nonrea ctive Not Available [facility] (Lab) [address], [place], [address], 04/15/2025 12:46:17 02/04/2002/03/2025 US, obste tric, follo w-up No observ ation record ed. [facility] [address], [place], [address], 02/03/2025 17:50:45 0702/03/2025 US, obste tric, trans vagin al No observ ation record ed. [facility] [address], [place], [address], 02/03/2025 17:50:54 02/04/2002/03/2025 US, obste tric, follo w-up No observ ation record ed. [facility] [address], [place], [address], 02/17/2025 09:47:46 03/01/2003/01/2025 US, obste tric, trans vagin al No observ ation record ed. [facility] [address], [place], [address], 03/01/2025 18:51:07 03/01/2003/01/2025 US, obste tric, follo w-up No observ ation record ed. [facility] [address], [place], [address], 03/01/2025 18:51:17 03/01/2003/01/2025 US, obste tric, trans vagin al No observ ation record ed. [email or web address] [facility] [address], [place], [address], 03/04/2025 11:18:02 04/13/2004/13/2025 US, obste tric, follo w-up No observ ation record ed. [facility] [address], [place], [address], 04/18/2025 10:57:58 04/13/2004/13/2025 US, obste tric, follo w-up No observ ation record ed. [address], [place], [address], 04/13/2025 14:33:43 04/13/2004/13/2025 US, obste tric, trans vagin al No observ ation record ed. [email or web address] [facility] [address], [place], [address], 04/13/2025 14:33:53 04/25/2004/25/2025 US, obste tric, follo w-up No observ ation record ed. [address], [address], 04/26/2025 12:18:39 04/26/2004/25/2025 US, obste tric, follo w-up No observ ation record ed. [address], [address], 05/16/2025 16:36:08 05/16/2005/16/2025 US, obste tric, follo w-up No observ ation record ed. GEOFFREY Choie [address], [place], [address], 06/02/2025 12:50:00 05/16/2005/16/2025 US, obste tric, follo w-up No observ ation record ed. [facility] [address], [place], [address], 05/16/2025 18:39:43 05/16/2005/16/2025 US, obste tric, trans vagin al No observ ation record ed. [facility] [address], [place], [address], 05/16/2025 18:39:52 Result Notes None recorded. Problems Name Problem SNOMED Code Status Onset Date Resolution Date Notes Provider Name and Address Organization Details Recorded Time 55037724 [facility] 14:57:49 Low-lying placenta 514435929 Active 2024 8mm from OS at 21 weeks, repeat in 4 weeks faxed referral SSAndres Daugherty 04/[address] [facility] 11:02:39 Problem Notes None recorded. Procedures Surgical History Date Name Laterality Status Provider Name and Address Organization Details Recorded Time 11/19/19 18 tonsillectomy and adenoidectomy completed ALAN Cai [facility] 01/09/2025 12:24:46 tonsilectomy/winston oids completed Rebekah Blanche [facility] 03/01/2025 16:34:53 Imaging Results None recorded. Procedure Notes None recorded. Medical Equipment None Reported. Allergies Allergen ID Allergen Name Allergen Category Reaction Reaction Severity Criticality Documentation Date Start Date Code Code System Note Provider Name and Address Organization Details Recorded Time naproxen medicatio n abdominal pain moderate Not available 01/09/2025 7258 RxNorm [address] C[address] [facility] 12:21:23 Medications Name Sig Start [...] and Address Organization Details Last Updated DateTime 04/14/2025 03174.04677 g 129/75 mm[Hg] Delphine Wilson [facility] 04/14/2025 11:05:04 Social History Question Answer Notes LastModified by Organizat ion Details LastModified Time Do You Have An Advance Directive? No [email or web address] Information n ot available 01/09/2025 Are You Blind Or Do You Have Difficulty Seeing? No [email or web address] Information not available 01/09/2025 What Is Your Level Of Caffeine Consumption? Moderate [email or web address] Information not available 01/09/2025 How Much Tobacco Do You Chew? None [email or web address] Information not available 01/09/2025 In The 14 Days Before Symptom Onset, Have You Had Close Contact With A Laboratory-confirme d COVID-19 While That Case Was Ill? No [email or web address] Information n ot available 01/09/2025 In The 14 Days Before Symptom Onset, Have You Had Close Contact With A Person Who Is Under Investigation For COVID-19 While That Person Was Ill? No Information not available 01/09/2025 Have You Been To An Area Known To Be High Risk For COVID-19? No [email or web address] Information not available 01/09/2025 Are You Deaf Or Do You Have Serious Difficulty Hearing? No [email or web address] Information not available 01/09/2025 What Type Of Diet Are You Following? REGULAR Information n ot available 01/09/2025 What Is The Highest Grade Or Level Of School You Have Completed Or The Highest Degree You Have Received? [id number] Information not available 01/09/2025 Are There Any Guns Present In Your Home? No [email or web address] Information not available 01/09/2025 Do You Use Protection During Sex? No [email or web address] Information not available 01/09/2025 Do You Use Your Seat Belt Or Car Seat Routinely? Yes [email or web address] Information not available 01/09/2025 Are You Sexually Active? Yes [email or web address] Information not available 03/01/2025 Do You Have Smoke And Carbon Monoxide Detectors In Your Home? Yes [email or web address] Information not available 01/09/2025 How Much Tobacco Do You Smoke? No [email or web address] Information not available 01/09/2025 Do You Use Sunscreen Routinely? No [email or web address] Information not available 01/09/2025 Have You Used IV Drugs? No [email or web address] Information not available 01/09/2025 Sex: Unknown Functional Status Question Answer Note LastModified by Organizat ion Details LastModified Time Do you use any illicit or recreational drugs? No [email or web address] Information not available 01/09/2025 What is your level of alcohol consumption? None [email or web address] Information not available 01/09/2025 Are you currently employed? Yes Information not available 03/01/2025 Are you able to walk independently without assistance or assistive devices? 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 Occasional [email or web address] Information not available 01/09/2025 Mental Status Question Answer Note LastModified by Organization D etails LastModified Time Do you feel stressed (tense, restless, nervous, or anxious, or unable to sleep at night)? [id number] Information not available 01/09/2025 Family History Relationship [...] ICD10 Code Diagnosis IMO Codes Diagnosis Note [id number] DUARTE RAMÍREZ MD [facility] [address] [address] 04/13/2025 12:22:16 04/13/2025 13:36:03 Low-lying placenta 713976434 O44.40 Z3A.31 [id number] - repeat US in 4 weeks- pelvic rest [id number] DUARTE RAMÍREZ MD [facility] [address] [address] 04/14/2025 10:47:19 04/14/2025 12:03:17 Low-lying placenta 676496607 O44.40 67604417 - placental mass 1.9cm from os, however low flow vascularit y seen between placenta and cervix- MFM consult- pelvic rest Gestation period, 31 weeks 60485737 Z3A.31 6187681 -continue [facility] Concerns Section Related Observation LastModified by Organization Detai ls LastModified Time None Recorded Concern Status LastModified by Organization Details LastModified Time None Recorded Payers Encounter Date Sequence Insurance Name Policy Number Policy Torres Covered Member ID Torres Member ID Guarantor Name 04/14/2025 1 *SELF PAY* Juma Jackson Notes Date Note Type Note Provider Name and Address Organization Details Recorded Time 04/14/2025 text/html Generic HPI TemplateReported by Patient DUARTE RAMÍREZ MD [address], [place], [address], [facility] 04/14/2025 12:01:41 OBGyn Episode Ob Episode Information Episode Created Date Number of Fetuses Patient Bloodtype Patient rh Status Prepregnancy Weight lbs Domestic Partner Domestic Partner Phone Father Name Sales Associate Key Holder Status 01/18/20 25 1 A Positive OPEN Fetus Data First Name Last Name Admitted to NICU Weight (g) Sex Living Outcome Pediatric Complications Fetus ID Race Codes Race Delivery Type [id number] Problems Problem Notes Problem Name Start Date End Date Resolution Snomed Code Not e Low-lying placenta 02/03/2025 868929837 8mm from OS at 21 weeks, repeat in 4 weeks faxed referral [facility] T[facility] Daugherty 04/18 Suhas Calculation Initial Suhas Date [...] Type Weight in lbs Pre/Post Dialysis Refused 174.03920895136 BP Diastolic BP Location Tested BP Systolic [...] Type Weight in lbs Pre/Post Dialysis Refused 184.621885656788 BP Diastolic BP Location Tested BP Systolic [...] Type Weight in lbs Pre/Post Dialysis Refused 194.684355259415 BP Diastolic BP Location Tested BP Systolic BP Type 75 L arm 129 sitting Fetus Heart Rate Present Fetus Movement A Yes Comments Good movement. Having some increased back pain, mostly with laying down. EFW 67%, placental mass now 1.9cm away from os, however there is a low flow vascularity seen between the placenta and the cervix. Will send to [facility] for further evaluation. Continue pelvic rest. GCT and labs today. RTC 2 weeks. Flowsheet Date 04/27/2025 Jay Score Blood Edema Fundus Height Fundus Units Glucose Ketones Leukocytes Nitrite Labor Signs Protein Cervic Dilation Cervic Effacement Cervic Station Type Weight in lbs Pre/Post Dialysis Refused Weight 199.298086263526 BP Diastolic BP Location Tested BP Systolic BP Type 72 L arm 118 sitting Fetus Heart Rate Present A 145 Fetus Movement A Yes Comments Flowsheet Date 05/10/2025 Jay Score Blood Edema Fundus Height Fundus Units Glucose Ketones Leukocytes Nitrite Labor Signs Protein Cervic Dilation Cervic Effacement Cervic Station Type Weight in lbs Pre/Post Dialysis Refused 200.516594159546 BP Diastolic BP Location Tested BP Systolic [...] Type Weight in lbs Pre/Post Dialysis Refused 198.437623075025 BP Diastolic BP Location Tested BP Systolic [...] Weight in lbs Pre/Post Dialysis Refused Weight 202.136040456357 BP Diastolic BP Location Tested BP Systolic [...] Weight in lbs Pre/Post Dialysis Refused Weight 202.818362638112 BP Diastolic BP Location Tested BP Systolic [...] Weight in lbs Pre/Post Dialysis Refused Weight 205.757931814769 BP Diastolic BP Location Tested BP Systolic [...] Weight in lbs Pre/Post Dialysis Refused Weight 204.682301752073 BP Diastolic BP Location Tested BP Systolic [...]
--- OUTSIDE RECORDS SUMMARY | 2025-06-14 19:54 | XMS_ITS | Clinical Summary ---
Author Organization [facility] Address [address] [place] [address] Care Team Providers Care Industrial Engineering Technologist Name Role Phone No, Physician Primary Care Provider [phone] Allergies Active Allergy Reactions Criticality Noted Date Comments Naproxen Nausea & Vomiting Low 08/18/2023 Social History Tobacco Use Types Packs/Day Years Used Date Smoking Tobacco: Never Assessed Personal Safety Answer Date Recorded Have you ever been in or are you currently in a harmful physical or emotional relationship or is someone making you feel afraid or unsafe? Denies 08/18/2023 Comments Unknown Sex and Gender Information Value Date Recorded Sex Assigned at Not on file Legal Sex Female 9:53 PM MANAGER MEDICAL Gender Identity Not on file Sexual Orientation Not on file Last Filed Vital Signs Vital Sign Reading Time Taken Comments Blood Pressure 130/71 08/19/2023 12:57 AM MANAGER MEDICAL Pulse 76 08/19/2023 12:57 AM MANAGER MEDICAL Temperature 36.8 C (98.2 F) 08/18/2023 10:00 PM MANAGER MEDICAL Respiratory Rate 24 08/19/2023 12:57 AM MANAGER MEDICAL Oxygen Saturation 100% 08/19/2023 12:57 AM MANAGER MEDICAL Inhaled Oxygen Concentration - - Weight 70 kg (154 lb 5.2 oz) 08/18/2023 10:00 PM MANAGER MEDICAL Height 165.1 cm (5' 5) 08/18/2023 10:00 PM MANAGER MEDICAL Body Mass Index 25.68 08/18/2023 10:00 PM MANAGER MEDICAL Plan of Treatment Health Maintenance Due Date Last Done Comments Cervical Cancer Screening 1986 Depression Screening 1986 Hepatitis C Screening 1986 DTaP/Tdap/Td Vaccine (1 - Tdap) 1997 Varicella Vaccines (1 of 2 - 13+ 2-dose series) 11/30/1999 Hepatitis B Screening 2004 Regular Well Visit/Exam 18-64 2004 HPV Vaccines (1 - 3-dose SCD M series) 2013 Influenza Vaccine (#1) 2025 Pneumococcal vaccine <65 Aged Out No longer eligible based on patient's age to complete this topic Care Teams Industrial Engineering Technologist Relationship Specialty Start Date End Date No, Physician PCP - General 08/18/23
--- OUTSIDE RECORDS SUMMARY | 2025-06-14 19:54 | XMS_ITS | Continuity of Care Document ---
Author Organization [facility] Address [address] [place] [address] Assessment No assessment recorded. Plan of Treatment [...] Not Available [facility] [address], [place], [address], 02/11/2025 00:34:26 02/12/20 25 02/11/2025 [UNIT Y] ANEUP LOIDY NIPT 22Q11.2 microdeletio n LOW RISK <1 in 10,000 normal Not Available [facility] [address], [place], [address], 02/11/2025 00:34:26 02/12/20 25 02/11/2025 [UNIT Y] ANEUP LOIDY NIPT sex chromosome aneuploidy NOT DETECT ED normal Not Available [facility] [address], [place], [address], 02/11/2025 00:34:26 02/12/20 25 02/11/2025 [UNIT Y] ANEUP LOIDY NIPT monosomy X LOW RISK <1 in 10,000 normal Not Available [facility] [address], [place], [address], 02/11/2025 00:34:26 02/12/20 25 02/11/2025 [UNIT Y] ANEUP LOIDY NIPT trisomy 13 LOW RISK <1 in 10,000 normal Not Available [facility] [address], [place], [address], 02/11/2025 00:34:26 02/12/20 25 02/11/2025 [UNIT Y] ANEUP LOIDY NIPT trisomy 18 LOW RISK <1 in 10,000 normal Not Available [facility] [address], [place], [address], 02/11/2025 00:34:26 02/12/20 25 02/11/2025 [UNIT Y] ANEUP LOIDY NIPT trisomy 21 LOW RISK <1 in 10,000 normal Not Available [facility] [address], [place], [address], 02/11/2025 00:34:26 02/12/20 25 02/11/2025 [UNIT Y] ANEUP LOIDY NIPT sex FEMALE normal Not Available [facility] [address], [place], [address], 02/11/2025 00:34:26 02/12/20 25 02/11/2025 [UNIT Y] ANEUP LOIDY NIPT gestation SINGLE TON normal Not Available [facility] [address], [place], [address], 02/11/2025 00:34:26 02/12/20 25 02/11/2025 [UNIT Y] ANEUP LOIDY NIPT for detailed report, see pdf See PDF normal Not Available [facility] [address], [place], [address], 02/11/2025 00:34:26 02/19/20 25 02/18/2025 [UNIT Y] KECIA DAYANARA DIAMANTEJaciel Molina sickle cell disease/beta -thalassemia /hemoglobino pathies carrier screen NEGATI VE normal Not Available [facility] [address], [place], [address], 02/18/2025 01:11:43 02/19/20 25 02/18/2025 [UNIT Y] KECIA BOBBYJaciel Molina alpha-thalas semia carrier screen NEGATI VE normal Not Available [facility] [address], [place], [address], 02/18/2025 01:11:43 02/19/20 25 02/18/2025 [UNIT Y] KECIA DAYANARA DIAMANTEJaciel Molina cystic fibrosis carrier screen NEGATI VE normal Not Available [facility] [address], [place], [address], 02/18/2025 01:11:43 02/19/20 25 02/18/2025 [UNIT Y] KECIA DAYANARA DIAMANTEJaciel Molina spinal muscular atrophy carrier screen NEGATI VE 2 SMN1 copies , SNP not presen t normal Not Available [facility] [address], [place], [address], 02/18/2025 01:11:43 02/19/20 25 02/18/2025 [UNIT Y] KECIA DAYANARA Molina for detailed report, see pdf See PDF normal Not Available [facility] [address], [place], [address], 02/18/2025 01:11:43 02/04/2002/03/2025 HIV 1/2 ANTIG EN/AN TIBOD Y, REFLE X CONFI RMATI ON HIV antigen/anti body Nonrea ctive nonrea ctive HIV-1 antig en and HIV-1 /HIV- 2 antib odies were not detec marvin. No labor atory evide nce of HIV infec tion. Not Available [facility] (Lab) [address] [facility], [place], [address], 02/04/2025 14:19:01 02/04/2002/03/2025 HEPAT ITIS B SURFA CE ANTIG EN hepatitis B surface antigen Non-re active non-re active This assay was perfo rmed using [employer] ratio n reage nts and test kits. Value s obtai amy with other assay metho ds or kits canno t be used inter cyr eably . Not Available [facility] (Lab) [address] [facility], [place], [address], 02/04/2025 14:19:02 02/04/2002/03/2025 HEPAT ITIS C ANTIB MANAN SCREE N, REFLE X TO CONFI RMATI ON hepatitis C antibody Non-re active non-re active Antib odies to HCV Not Detec marvin, does not exclu de the possi bilit y of expos ure to HCV. Not Available [facility] (Lab) [address] [facility], [place], [address], 02/04/2025 14:19:02 02/04/2002/03/2025 RUBEL LA IGG ANTIB MANAN, QUANT rubella antibodies, IgG Reacti ve reacti ve Not Available [facility] (Lab) [address] [facility], [place], [address], 02/04/2025 14:19:03 02/04/2002/03/2025 RUBEL LA IGG ANTIB MANAN, QUANT rubella antibodies, IgG quant 11.5 IU/mL >=10 Non-r eacti ve (Non- Immun e) <10 IU/mL React chastity (Immu ne) > or = 10 IU/mL Not Available [facility] (Lab) [address] [facility], [place], [address], 02/04/2025 14:19:03 02/04/2002/03/2025 HEMOG LOBIN A1C hemoglobin [...] >8.0% Actio n sugge sted Not Available [facility] (Lab) [address] [facility], [place], [address], 02/04/2025 14:19:03 02/04/2002/03/2025 TYPE/ RH/SC REEN ABO/Rh type A POS Not Available [facility] (Lab) [address], [place], [address], 02/04/2025 14:19:04 02/04/20 25 02/03/2025 TYPE/ RH/SC REEN antibody screen NEG Not Available [facility] (Lab) [address] [facility], [place], [address], 02/04/2025 14:19:04 02/04/20 25 02/03/2025 TYPE/ RH/SC REEN exp date 2024 23:59 Not Available [facility] (Lab) [address] [facility], [place], [address], 02/04/2025 14:19:04 02/04/20 25 02/03/2025 RPR SCREE N, REFLE X TITER /CONF IRMAT ION RPR qualitative Nonrea ctive nonrea ctive Not Available [facility] (Lab) [address], [place], [address], 02/04/2025 14:19:04 04/14/20 25 04/14/2025 HEMOG LOBIN (HGB) HGB 11.0 g/dL (based on docume nted legal sex) 11.6-1 5.4 low Not Available [facility] (Lab) [address] [facility], [place], [address], 04/15/2025 12:46:15 04/14/20 25 04/14/2025 HEMAT OCRIT (HCT) HCT 35.7 % (based on docume nted legal sex) 34.0-4 5.0 Not Available [facility] (Lab) [address] [facility], [place], [address], 04/15/2025 12:46:16 04/14/20 25 04/14/2025 GTT - GESTA SHASHANK L SCREE N, ACOG OB glucose, 1 hour screen 99 mg/dL 70-[address] [facility] (Lab) [address] [facility], [place], [address], 04/15/2025 12:46:16 04/14/20 25 04/14/2025 HIV 1/2 ANTIG EN/AN TIBOD Y, REFLE X CONFI RMATI ON HIV antigen/anti body Nonrea ctive nonrea ctive HIV-1 antig en and HIV-1 /HIV- 2 antib odies were not detec marvin. No labor atory evide nce of HIV infec tion. Not Available [facility] (Lab) [address] [facility], [place], [address], 04/15/2025 12:46:17 04/14/20 25 04/14/2025 RPR SCREE N, REFLE X TITER /CONF IRMAT ION RPR qualitative Nonrea ctive nonrea ctive Not Available [facility] (Lab) [address] [facility], [place], [address], 04/15/2025 12:46:17 05/24/20 25 05/24/2025 CULTU RE: [...] Resul jarrodg Lab: [facility] [address] [facility] [address] Tel: CULTU RE ----- ----- ----- --- No Group B strep isola marvin at 2 days (devin ctive broth enhan cemen t) Not Available [facility] (Lab) [address], [place], [address], 05/27/2025 15:26:08 02/04/20 25 02/03/2025 US, obste tric, follo w-up No observ ation record ed. [facility] [address], [place], [address], 02/03/2025 17:50:45 02/04/20 25 02/03/2025 US, obste tric, trans vagin al No observ ation record ed. [facility] [address], [place], [address], 02/03/2025 17:50:54 02/04/20 25 02/03/2025 US, obste tric, follo w-up No observ ation record ed. [email or web address] [place] [address] [address], [place], [address], 02/17/2025 09:47:46 03/01/2003/01/2025 US, obste tric, trans vagin al No observ ation record ed. [facility] [address], [place], [address], 03/01/2025 18:51:07 03/01/20 25 03/01/2025 US, obste tric, follo w-up No observ ation record ed. [facility] [address], [place], [address], 03/01/2025 18:51:17 03/01/2003/01/2025 US, obste tric, trans vagin al No observ ation record ed. [email or web address] [address], [place], [address], 03/04/2025 11:18:02 04/13/2004/13/2025 US, obste tric, follo w-up No observ ation record ed. [facility] [address], [place], [address], 04/18/2025 10:57:58 04/13/2004/13/2025 US, obste tric, follo w-up No observ ation record ed. [email or web address] [place] [address], [place], [address], 04/13/2025 14:33:43 04/13/2004/13/2025 US, obste tric, trans vagin al No observ ation record ed. [email or web address] [place] [address], [place], [address], 04/13/2025 14:33:53 04/25/2004/25/2025 US, obste tric, follo w-up No observ ation record ed. [email or web address] [address], [address], 04/26/2025 12:18:39 04/26/2004/25/2025 US, obste tric, follo w-up No observ ation record ed. [email or web address] [facility] [address], [address], 05/16/2025 16:36:08 05/16/2005/16/2025 US, obste tric, follo w-up No observ ation record ed. GEOFFREY Carson [address], [place], [address], 06/02/2025 12:50:00 05/16/2005/16/2025 US, obste tric, follo w-up No observ ation record ed. [facility] [address], [place], [address], 05/16/2025 18:39:43 05/16/2005/16/2025 US, obste tric, trans vagin al No observ ation record ed. [facility] [address], [place], [address], 05/16/2025 18:39:52 Result Notes None recorded. Problems Name Problem SNOMED Code Status Onset Date Resolution Date Notes Provider Name and Address Organization Details Recorded Time 02882541 Active [address] [facility] 14:57:49 Low-lying placenta 357816110 Active 2024 8mm from OS at 21 weeks, repeat in 4 weeks faxed referral [facility] Willow 04/[address] [facility] 11:02:39 Problem Notes None recorded. Procedures Surgical History Date Name Laterality Status Provider Name and Address Organization Details Recorded Time 11/19/19 18 tonsillectomy and adenoidectomy completed ALAN Cai [facility] 01/09/2025 12:24:46 tonsilectomy/winston oids completed Rebekah Mancia [facility] 03/01/2025 16:34:53 Imaging Results None recorded. [...] Updated DateTime 06/13/2025 165.1 cm 33.9 kg/m2 93865.84 g 147/87 mm[Hg] 126/82 mm[Hg] Delphine Steve [facility] 10:07:21 Social History Question Answer Notes LastModified by Organizat ion Details LastModified Time Do You Have An Advance Directive? No [email or web address] Information n ot available 01/09/2025 Are You Blind Or Do You Have Difficulty Seeing? No Information not available 01/09/2025 What Is Your Level Of Caffeine Consumption? Moderate [email or web address] Information not available 01/09/2025 How Much Tobacco Do You Chew? None [email or web address] Information not available 01/09/2025 In The 14 Days Before Symptom Onset, Have You Had Close Contact With A Laboratory-confirme d COVID-19 While That Case Was Ill? No [email or web address] Information n ot available 01/09/2025 In The 14 Days Before Symptom Onset, Have You Had Close Contact With A Person Who Is Under Investigation For COVID-19 While That Person Was Ill? No [email or web address] Information not available 01/09/2025 Have You Been To An Area Known To Be High Risk For COVID-19? No [email or web address] Information not available 01/09/2025 Are You Deaf Or Do You Have Serious Difficulty Hearing? No [email or web address] Information not available 01/09/2025 What Type Of Diet Are You Following? REGULAR [email or web address] Information n ot available 01/09/2025 What Is The Highest Grade Or Level Of School You Have Completed Or The Highest Degree You Have Received? [id number] Information not available 01/09/2025 Are There Any Guns Present In Your Home? No [email or web address] Information not available 01/09/2025 Do You Use Protection During Sex? No [email or web address] Information not available 01/09/2025 Do You Use Your Seat Belt Or Car Seat Routinely? Yes [email or web address] Information not available 01/09/2025 Are You Sexually Active? Yes [email or web address] Information not available 03/01/2025 Do You Have Smoke And Carbon Monoxide Detectors In Your Home? Yes [email or web address] Information not available 01/09/2025 How Much Tobacco Do You Smoke? No [email or web address] Information not available 01/09/2025 Do You Use Sunscreen Routinely? No [email or web address] Information not available 01/09/2025 Have You Used IV Drugs? No [email or web address] Information not available 01/09/2025 Sex: Unknown Functional Status Question Answer Note LastModified by Organizat ion Details LastModified Time Do you use any illicit or recreational drugs? No Information not available 01/09/2025 What is your level of alcohol consumption? None [email or web address] Information not available 01/09/2025 Are you currently employed? Yes [email or web address] Information not available 03/01/2025 Are you able to walk independently without assistance or assistive devices? 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 Occasional [email or web address] Information not available 01/09/2025 Mental Status Question Answer Note LastModified by Organization D etails LastModified Time Do you feel stressed (tense, restless, nervous, or anxious, or unable to sleep at night)? [id number] [email or web address] Information not available 01/09/2025 Family History Relationship [...] ICD10 Code Diagnosis IMO Codes Diagnosis Note [id number] MD Yoanna PORTER [address] [address] 05/16/2025 16:56:29 05/17/2025 08:24:49 Low-lying placenta 815382961 O44.40 O09.523 Z3A.35 181152 - placental mass 1.7cm from os, with maternal vessel at edge of placenta- MFM follow up in 3 weeks; will reschedule to office due to cost- pelvic rest [id number] MD Yoanna PORTER [address] [address] 05/16/2025 16:57:18 05/17/2025 22:17:31 care status 086688472 Z34.83 [id number] MD Yoanna PORTER [address],[place] [address] 05/24/2025 15:57:07 05/24/2025 16:25:52 care status 847105132 Z34.83 [id number] DUARTE RAMÍREZ MD [place] [address],[place] [address] 05/30/2025 09:37:18 05/30/2025 10:21:45 care status 112111312 Z34.83 [id number] DUARTE RAMÍREZ MD [place] [address],[place] [address] 06/06/2025 12:24:53 06/06/2025 12:50:01 care status 198413962 Z34.83 [id number] DUARTE RAMÍREZ MD [place] [address],[place] [address] 06/13/2025 09:56:07 06/13/2025 10:30:05 care status 056191807 Z34.83 [id number] Health Concerns Section Related Observation LastModified by Organization Detai ls LastModified Time None Recorded Concern Status LastModified by Organization Details LastModified Time None Recorded Payers Encounter Date Sequence Insurance Name Policy Number Policy Torres Covered Member ID Torres Member ID Guarantor Name 06/13/2025 1 *SELF PAY* Juma hammad Renetta Notes Date Note Type Note Provider Name and Address Organization Details Recorded Time 06/13/2025 text/html Generic HPI TemplateReported by Patient DUARTE RAMÍREZ MD [address], [place], [address], [facility] 06/13/2025 10:28:10 OBGyn Episode Ob Episode Information Episode Created Date Number of Fetuses Patient Bloodtype Patient rh Status Prepregnancy Weight lbs Domestic Partner Domestic Partner Phone Father Name Appraiser Personal Property Status 01/18/20 1 A Positive OPEN Fetus Data First Name Last Name Admitted to NICU Weight (g) Sex Living Outcome Pediatric Complications Fetus ID Race Codes Race Delivery Type [id number] Problems Problem Notes Problem Name Start Date End Date Resolution Snomed Code Not e Low-lying placenta 02/03/2025 [id number] 8mm from OS at 21 weeks, repeat in 4 weeks faxed referral [facility] TACHO Daugherty 04/18 Suhas Calculation Initial Suhas [...] Type Weight in lbs Pre/Post Dialysis Refused 174.93243364055 BP Diastolic BP Location Tested BP Systolic [...] Type Weight in lbs Pre/Post Dialysis Refused 184.173563029039 BP Diastolic BP Location Tested BP Systolic [...] Type Weight in lbs Pre/Post Dialysis Refused 194.490086738136 BP Diastolic BP Location Tested BP Systolic BP Type 75 L arm 129 sitting Fetus Heart Rate Present Fetus Movement A Yes Comments Good movement. Having some increased back pain, mostly with laying down. EFW 67%, placental mass now 1.9cm away from os, however there is a low flow vascularity seen between the placenta and the cervix. Will send to [facility] for further evaluation. Continue pelvic rest. GCT and labs today. RTC 2 weeks. Flowsheet Date 04/27/2025 Jay Score Blood Edema Fundus Height Fundus Units Glucose Ketones Leukocytes Nitrite Labor Signs Protein Cervic Dilation Cervic Effacement Cervic Station Type Weight in lbs Pre/Post Dialysis Refused Weight 199.145971691336 BP Diastolic BP Location Tested BP Systolic BP Type 72 L arm 118 sitting Fetus Heart Rate Present A 145 Fetus Movement A Yes Comments Flowsheet Date 05/10/2025 Jay Score Blood Edema Fundus Height Fundus Units Glucose Ketones Leukocytes Nitrite Labor Signs Protein Cervic Dilation Cervic Effacement Cervic Station Type Weight in lbs Pre/Post Dialysis Refused 200.839370780011 BP Diastolic BP Location Tested BP Systolic [...] Type Weight in lbs Pre/Post Dialysis Refused 198.549022428236 BP Diastolic BP Location Tested BP Systolic [...] Weight in lbs Pre/Post Dialysis Refused Weight 202.463894833606 BP Diastolic BP Location Tested BP Systolic [...] Weight in lbs Pre/Post Dialysis Refused Weight 202.962278615778 BP Diastolic BP Location Tested BP Systolic [...] Weight in lbs Pre/Post Dialysis Refused Weight 205.246329197064 BP Diastolic BP Location Tested BP Systolic [...] Weight in lbs Pre/Post Dialysis Refused Weight 204.272595777306 BP Diastolic BP Location Tested BP Systolic [...]
--- NOTE | 2025-06-14 20:08 | P.PNAN_ITS ---
Anes - Eval Pre Procedure Procedure: labor epidural Date/Time: 06/14/25 20:08 Surgeon: hang Preop Diagnosis: pain during labor Pre Op Diagnosis: Contractions Patient Data Age: 39 Gender: F Height: Weight: Last Vital Signs Pulse 81 06/14/25 20:01 BP 136/81 06/14/25 20:01 Pulse Ox 99 06/14/25 20:07 Allergies Allergy/AdvReac Type Severity Reaction Status Date / Time No Known Allergies Allergy Verified 05/17/25 15:26 Home Medications ?Medication ?Instructions ?Recorded ?Confirmed ?Type ferrous sulfate 325 mg (65 mg 325 mg PO DAILY 05/17/25 05/17/25 History iron) tablet (Feosol) vit no.95-ferrous 1 tablet PO DAILY 05/17/25 05/17/25 History fumarate 28 mg-folic acid 800 mcg tablet () Patient hx anesthesia problems: other (slow to wake) Family hx anesthesia problems: none Results Review: All pre-operative results and documents have been reviewed as part of the pre- operative evaluation. [facility] Past Medical History Medical History (Updated 06/14/25 @ 20:09 by Jacquelin Rivas CRNA) Anxiety IUP (intrauterine ), incidental Social History Social History Substance use: never Spiritual care concerns: No Exam Day of Procedure 06/14/25 20:08
--- NOTE | 2025-06-14 20:35 | LDADM ---
This patient, Zoya Jackson, was admitted to Labor/Delivery/Recovery 107 on 06/14/25 at 18:30. Plans for labor, pain management and were discussed with patient. Patient/family oriented to hospital policies and general routines including ID bracelet, bed and alarms, visiting hours, pain management, procedures, bathroom and other care routines, personal items, smoking policy, room service/diet and guest tray routines, infant security routines, and visiting hours. Patient/Family are encouraged to report perceived risks to care and to ask questions if they do not understand what they are told or what they should do. See OBIX for further documentation.
[2025-06-14 20:38] LABS: Hematocrit 38.3 % (37.0-47.0); Hemoglobin 12.8 g/dL (12.0-15.0); Immature Granulocyte Percent A 0.6 % (0-0.5); Lymphocytes Absolute Auto 1.71 K/mm3 (0.9-3.2); Mean Corpuscular HGB Conc 33.4 g/dl (32-36); Mean Corpuscular Hemoglobin 29.7 pg (26-34); Mean Corpuscular Volume 88.9 fl (80-100); Nucleated Red Blood Cells Absolute Auto 0.000 K/mm3 (0.0-0.012); Nucleated Red Blood Cells Perc 0.0 % (0.0-0.2); Platelet Count Result 303 k/mm3 (150-375); Red Blood Count 4.31 M/mm3 (4.2-5.4); White Blood Count 15.0 K/mm3 (4.5-10.0)
[2025-06-14] MEDS: fentaNYL CITRATE INJ (*CRX) 100 MCG/2 ML VIAL 50 MCG IV PUSH (20:55)
[2025-06-14 21:23] LABS: Syphilis IgG/IgM Antibody Non-Reactive (Nonreactive)
[2025-06-14] MEDS: OXYTOCIN 30 UNITS/NS 500 ML 30 UNITS/500 ML BAG 999 UNITS IV CONT (22:12)
--- NOTE | 2025-06-14 22:35 | WPDOBADMIT ---
Obstetrics - Admit Note Admission Note: record reviewed. No pertinent additions to the history and/or any subsequent changes in the physical findings that are not consistent with the expected course of the were found. Additions to the history and/or subsequent changes in the physical findings follow. admit in labor
--- NOTE | 2025-06-14 22:35 | PM.OBPRVD ---
OB - Vaginal Delivery Note Procedure Delivery date: 06/14/25 Induction method: None Delivery monitor: External FHT and External Uterine Route of delivery: Laceration Description: None Specimen: No Quantitative Blood Loss (ml): 200 Anesthesia type: None Disposition: Floor Complications: No immediate complications Baby Date of : 06/14/25 Time of : 22:10 Gestational Age by Date: 39 gender: Female presentation: vertex position: Left Occiput Anterior Placenta delivery description: Spontaneous Cord Vessel Description: 3 Vessels score one minute: 8 score five minutes: 9
[2025-06-14] MEDS: OXYTOCIN 30 UNITS/NS 500 ML 30 UNITS/500 ML BAG 125 UNITS IV CONT (23:43)
[2025-06-15] VITALS (14 sets, daily range): BP systolic 90–133; BP diastolic 58–81; PULSE 76–94; RESP 16–18; TEMP 36.4–36.9; O2SAT 96–100
--- NOTE | 2025-06-15 00:47 | OBPPTRN ---
Patient transferred to post room #278 via wheelchair. Support person present. Oriented to unit, room, information board, rooming in, admission packet and security measures. Patient verbalizes understanding.
[2025-06-15 05:27] LABS: Hematocrit 32.1 % (37.0-47.0); Hemoglobin 10.4 g/dL (12.0-15.0)
--- NOTE | 2025-06-15 09:48 | P.PNOB_ITS ---
OB - PN: Subj Subjective Date/time seen: 06/15/25 09:48 Interval history: PPD#1 s/p Doing well, pain controlled Tolerating general diet Voiding without issue OB - PN: Obj Data Labs 06/15/25 04:16 Labs: Laboratory Results - last 24 hr 06/14/25 06/15/25 19:58 04:16 WBC 15.0 H RBC 4.31 Hgb 12.8 10.4 L Hct 38.3 32.1 L MCV 88.9 MCH 29.7 MCHC 33.4 RDW 13.3 Plt Count 303 MPV 9.3 Immature Gran % (Auto) 0.6 H Neut % (Auto) 81.3 H Lymph % (Auto) 11.4 L Gordon % (Auto) 5.6 Eos % (Auto) 0.9 Baso % (Auto) 0.2 Lymph # (Auto) 1.71 Gordon # (Auto) 0.8 H Eos # (Auto) 0.1 Baso # (Auto) 0.0 Abs Immat Gran (auto) 0.09 H Absolute Neuts (auto) 12.2 H Absolute Nucleated RBC 0.000 Nucleated RBC % 0.0 Syphilis IgG/IgM Ab Non-reactive Blood Type A Positive Antibody Screen Negative OB - PN A/P Assessment and Plan (1) (spontaneous vaginal delivery): Code(s): O80 - Encounter for full-term uncomplicated delivery Status: Acute Plan day: 1 Plan: routine care Time Spent With Patient Time: Total time spent is greater than 50% in coordination of care (as documented) at patient's floor/unit and/or counseling patient: Review of Systems 2 Review of Systems: All systems reviewed & are unremarkable except as noted in HPI and below Exam 2 Const: General: comfortable and no acute distress O rientation/consciousness: patient oriented x3 Resp: Effort & Inspection: normal respiratory effort
[2025-06-15] MEDS: MULTIVIT/MIN/PREN/FOL AC/IRON TABLET 1 TAB PO (11:45)
--- NOTE | 2025-06-16 00:51 | P.DS_ITS ---
DS: Admitting Diagnosis Discharge Date 06/16/25 Admitting Diagnosis labor OB - DS: Summary OB Procedures : None OB Procedures Intrapartum: Spontaneous Vag Delivery OB Procedures: : None Peripartum Data Laceration Description: None Time Spent with Patient Time attestation: Total time spent providing and/or coordinating discharge services: DS: Data Data Completed and Pending Labs on day of discharge: Labs from last 24 hours 06/15/25 04:16 Hgb 10.4 L Hct 32.1 L Discharge Plan Discharge Attending physician on discharge: Liam Lorenzo Discharging Clinician: Liam Lorenzo Patient Disposition: Home Activity: may shower, as tolerated and pelvic rest Diet: as tolerated Patient Instructions: Antibiotic Form Patient Language: Syrian Stand Alone Forms: General Discharge Information Follow-up/Referrals: Liam Lorenzo MD [Physician, [employer]] - 4 Weeks Discharge Medications: New ibuprofen 600 mg Tablet 600 mg PO Q6H PRN (Reason: Cramping) Qty: 30 0RF Continued PNV no.95-ferrous fumarate-FA [] 28 mg iron- 800 mcg tablet 1 tablet PO DAILY ferrous sulfate [Feosol] 325 mg (65 mg iron) tablet 325 mg PO DAILY Date of admission: 06/14/25 18:30 Primary Care Provider: UNKNOWN,DOCTOR Admitting Provider: Liam Lorenzo Attending physician on admission: Liam Lorenzo Condition: Stable
[2025-06-16] MEDS: ACETAMINOPHEN 325 MG TABLET 650 MG PO (04:44)
[2025-06-16 07:50] VITALS: BP 129/77; PULSE 85; RESP 18; TEMP 36.3; O2SAT 98
--- NOTE | 2025-06-16 10:00 | PC.NURSE ---
Consulted with patient to assess needs related to . Discussed with mother her successes, concerns and any questions she has. We reviewed working with the , supporting breast, protecting her nipples with an optimal deep latch, good positioning, and good hand washing. Encouraged understanding the benefits of skin to skin, responding to feeding cues, frequencies of feeding 8-12 times in 24 hours (approximately 2-3 hours), duration of feedings, milk production, intake/output feeding sheet and signs of adequate intake encouraging swallowing at the breast. Reviewed positioning and alignment, supporting breast, off-centered (asymmetrical latch) and leading with the chin with big, open, wide gape. latched optimally to the [left] breast in [cradle] position. Education given to the mother of how to visualize the suckling (with good rocking jaw motion) swallows (dropping of the lower jaw) and how to listen for drinking at the breast (the ka sound). The was [able] to maintain latch without discomfort to mother. Nipple care reviewed with optimal latch, mother had some nipple soreness overnight with cluster feedings, good positioning and using clean hands when touching her breast. Resources used to facilitate learning were used from the [visual handouts/ tool/mom and baby guide]. Mother voiced understanding of the education shared, to call for assistance if the does not latch or if there is discomfort with . Reported to the Primary RN.
--- NOTE | 2025-06-16 10:23 | PM.OBPNVD ---
OB - PN: Subj Subjective Date/time seen: 06/16/25 10:23 Interval history: PPD#2 s/p Doing well, pain controlled Tolerating general diet Voiding without issue Ready to go home OB - PN: Obj Data Labs 06/15/25 04:16 OB - PN A/P Plan day: 2 Plan: routine care and discharge home Time Spent With Patient Time: Total time spent is greater than 50% in coordination of care (as documented) at patient's floor/unit and/or counseling patient:
--- NOTE | 2025-06-16 12:35 | PC.NURSE ---
Consulted with mother concerning needs and she shared her ability to independently latch infant optimally without pain. Mother is feeding appropriately for growth of and understands stimulating to eat if needed. Infant has had appropriate feedings in the last 24 hours meets the outcomes for weight, output, blood sugar and jaundice at this time. Reinforced understanding of milk production, transition of milk, signs of adequate intake, transition of stool, prevention/relief of engorgement, plugged ducts, mastitis, responsive watching for feeding cues, the different methods of stimulating to breastfeed 1-3 hours after the start of the last feeding, community resources, and when to call a provider using the resource of the feeding sheet along with the mom and baby guide. Mother voiced understanding of the information shared, is confident to continue effectively her infant at home, when to call for assistance, denies any additional assistance or education at this time. Reported to the Primary RN.
[2025-06-19 11:34] VITALS: BP 137/79; PULSE 78; RESP 18; TEMP 36.7; O2SAT 100
== END 2025-06-16 12:55 | disposition home or self-care (01) | DRG 560 ==
LOC: ANHLDR 20:51 → ANHOB2 06-15 00:47
PROVIDERS: Advanced Practice Midwife; Admitting Provider Obstetrics & Gynecology; Visit Provider Obstetrics & Gynecology
DX: O62.3 Precipitate labor (principal); Z37.0 Single live birth; Z3A.39 39 weeks gestation of pregnancy; O77.0 Labor and delivery complicated by meconium in amniotic fluid
CPT/HCPCS: 36415; 85014; 85018; 85025; 86593; 86850; 86900; 86901; A9270; J2590; J3010